=== PATIENT | female | born 1965 | race Caucasian/White ===

== ENCOUNTER → 2017-04-15 16:18 | Outpatient (CLI) | payer MEDICAID, SELFPAY ==
[2017-04-15 18:08] LABS: Amylase 38 U/L (25-115); Lipase 271 U/L (73-393)
[2017-04-15 18:09] LABS: Absolute Neutrophil Count 3.9 X10^3/uL (2.0-7.7); Basophil# 0.03 X10^3/uL; Basophil% 0.4 % (0-1); Eosinophil# 0.07 X10^3/uL; Hematocrit 40.1 % (37-47); Hemoglobin 13.1 g/dl (12.0-15.0); Lymphocyte % 32.6 % (19-41); Mean Corp Hgb Conc 32.7 g/gl (32-36); Mean Corpuscular Hgb 29.2 pg (27.0-32.0); Mean Corpuscular Volume 89.3 fL (81-99); Mean Platelet Vol. 8.8 fl (6.2-12.0); Monocyte# 0.52 X10^3/uL; Monocyte% 7.7 % (0-10); Neutrophil # 3.92 X10^3/uL (2.7-7.7); Neutrophil % 58.2 % (47-70); Platelet Count 296 K/mm3 (150-450); RBC Distribution Width CV 14.3 % (11.6-14.6); RBC Distribution Width SD 46.9 fl (35.1-43.9); Red Blood Count 4.49 M/mm3 (4.2-5.4); White Blood Count 6.8 K/mm3 (4.4-11.0)
[2017-04-15 18:14] LABS: POSITIVE COUNT NO; POSITIVE DIFFERENTIAL NO; POSITIVE MORPHOLOGY NO
== END ==
PROVIDERS: Family Provider Family Medicine; PCP Family Medicine; Visit Provider Family Medicine
DX: K29.00 Acute gastritis without bleeding (principal)
CPT/HCPCS: 36415; 82150; 83690; 85025

== ENCOUNTER 2017-04-26 18:24 | Emergency (ER) | payer MEDICAID, SELFPAY ==
[2017-04-26 18:25] VITALS: BP 196/99; PULSE 74; RESP 18; TEMP 36.4; O2SAT 98; BMI 33.5
--- NOTE | 2017-04-26 18:33 | CT_ITS ---
STUDY: CT ABDOMEN AND PELVIS WITH CONTRAST REASON FOR EXAM: Female, 52 years old. Left-sided abdominal pain. RADIATION DOSAGE (If Supplied By Facility): CTDIvol = ( 17.96 ) mGy, DLP = ( 1173.76 ) mGycm TECHNIQUE: Transaxial images were obtained from the dome of the diaphragm to the symphysis pubis without oral contrast. 100ML ml of Isovue 300 contrast was administered. Sagittal and coronal images were reconstructed. Individualized dose optimization techniques were used for this CT. COMPARISON: None. FINDINGS: There is minimal bibasilar atelectasis. The visualized portions of the heart are within normal limits. There is a too small to characterize low-attenuation focus within the left hepatic lobe that may reflect underlying cyst or hemangioma. There are surgical clips in the gallbladder fossa consistent with a prior cholecystectomy. Normal spleen. Normal pancreas. Normal bilateral adrenal glands. Normal right kidney. Normal left kidney. Normal visualized stomach. Normal small intestine. There is a moderate amount of stool throughout the colon. There is non-visualization of the appendix. There is minimal atherosclerotic calcification of the abdominal aorta, without a demonstrated aneurysm. Normal inferior vena cava. Normal retroperitoneum. Normal urinary bladder. There is evidence of prior tubal ligation. Within the right adnexa there is a 2 cm well-circumscribed low-attenuation focus that likely reflects underlying cyst. There is a small umbilical hernia containing fat. There are diffuse degenerative changes of the visualized lumbar spine. CT/Abdomen/Pelvis W IV Cont ONLY IMPRESSION: Moderate amount of stool throughout the colon. Small fat-containing umbilical hernia. Atherosclerosis. Electronically Signed: Zahra Vasquez MD at 20:35 EST Tel , Service support ,
--- NOTE | 2017-04-26 18:51 | ED.VISSUMM ---
- ER Visit Summary Date of Service: 04/26/17 Chief Complaint: Abdominal pain History of Present Illness: The patient is a 52 F history of hypertension and hypothyroidism presents to the emergency department abdominal pain. The patient states that she was admitted to the hospital just over 2 years ago. At that time, she had a left-sided pneumonia with a pleural effusion. She states that she had effusion tapped and did fine as an outpatient. However, since then she has had some pain in her upper left abdomen. She states it wax and wane. She states however over the past 3 days the pain is worsened. She describes a sharp sensation in her upper abdomen. 2 weeks ago, she was started on omeprazole and feels like that may be helping some of the symptoms. She denies any diarrhea. She denies any constipation. She has had no fevers or chills. She denies any vomiting. She states that she called her primary care, Dr. Mckeon, but cannot be seen in the office and was sent in for further evaluation. Physical Examination: Vital signs reviewed General: Well-nourished, well-developed Head: Normocephalic, atraumatic Eyes: Pupils equal and reactive, extraocular muscles intact Neck, supple, no lymphadenopathy Heart: Regular rate and rhythm Respiratory: No distress, clear bilaterally Abdomen: Soft, normal tenderness in the left upper quadrant along the splenic flexure, nondistended, no peritoneal signs Back: Nontender Extremities: Nontender, no edema, no cords Skin: Normal color no rash Neuro: Alert and oriented, no focal or lateralizing deficits Test Results: [] Emergency Department Course and Treatment: She does have some minimal tenderness in the left upper quadrant. Her symptoms have actually improved with some omeprazole over the past 2 weeks. It does not seem to be related to eating. I did obtain screening labs which were relatively unremarkable for the patient. There is no evidence of acute liver dysfunction, pancreatitis, or acute kidney injury. Patient underwent CT of the abdomen and pelvis. There is some small cysts within the liver that appears to be hemangioma. There is no documented dangerous process within the abdomen. She does have a moderate amount of stool. I do feel this may be contributing to her symptoms. At this time, I am unsure if this is because of constipation, underlying gastritis, or another process. However, the patient has a repeat nontender exam without analgesic medication, normal laboratory workup, and an unremarkable CT. At this time, I do feel that she is safe for discharge with outpatient therapy. She will be given magnesium citrate, Colace, and Bentyl. She was counseled on concerning symptoms and reasons to return. The patient will be discharged home. Treatment Plan: [] Disposition: Discharge Impression:. Left upper quadrant abdominal pain 2. Constipation This note was generated with [employer] dictation software. It may contain incorrect words, spelling, and punctuation that were not noted in review of the chart prior to signing ED Disposition - Plan for ED Patient: Chief Complaint: Abd Pain Instructions: ED Abdominal Pain Unkn Cause Prescriptions: Dicyclomine HCl [Bentyl] 20 mg PO TIDAC #20 cap Docusate Sodium [Colace] 100 mg PO DAILY #20 cap Referrals: Conor Mckeon MD [Primary Care Provider] -
[2017-04-26] MEDS: 0.9% Normal Saline 1,000 ML 1000 ML IV (19:04)
[2017-04-26 19:19] LABS: Absolute Lymphocyte Count 2.19 X10^3/ul (0.83-4.51); Absolute Neutrophil Count 4.2 X10^3/uL (2.0-7.7); Basophil# 0.04 X10^3/uL; Basophil% 0.5 % (0-1); Eosinophils% 2.7 % (0-5); Hematocrit 39.1 % (37-47); Hemoglobin 12.9 g/dl (12.0-15.0); Lymphocyte # 2.19 X10^3/ul (4.0); Lymphocyte % 29.1 % (19-41); Mean Corpuscular Hgb 29.8 pg (27.0-32.0); Mean Corpuscular Volume 90.3 fL (81-99); Mean Platelet Vol. 8.5 fl (6.2-12.0); Monocyte# 0.84 X10^3/uL; Monocyte% 11.2 % (0-10); Neutrophil # 4.23 X10^3/uL (2.7-7.7); Neutrophil % 56.1 % (47-70); Platelet Count 273 K/mm3 (150-450); RBC Distribution Width CV 14.6 % (11.6-14.6); RBC Distribution Width SD 47.7 fl (35.1-43.9); Red Blood Count 4.33 M/mm3 (4.2-5.4); White Blood Count 7.5 K/mm3 (4.4-11.0)
[2017-04-26 19:20] LABS: POSITIVE COUNT NO; POSITIVE DIFFERENTIAL NO; POSITIVE MORPHOLOGY NO
[2017-04-26 19:52] LABS: ALB/GLOB Ratio 1.1 RATIO (0.9-2.4); AST(SGOT) 18 U/L (15-37); Alanine Aminotransfer ALT/SGPT 29 U/L (13-56); Albumin, Serum 3.7 g/dL (3.2-5.0); Alkaline Phosphatase 104 U/L (45-117); Anion Gap 8 (5-15); BUN 17 mg/dL (7-18); BUN/Creat Ratio 16.7 RATIO (10-20); Calcium,Total 8.4 mg/dL (8.5-10.1); Chloride 105 mmol/L (98-107); Creatinine, Serum 1.02 mg/dL (0.55-1.02); EST Glomerular Filtration Rate 60 mL/min (>60); Est Glom Filt Rate - Afr Amer 73 mL/min (>60); Estimated Creatinine Clearance 59.03 ml/min; Globulin 3.5 g/dL (2.2-4.2); Glucose 86 mg/dL (74-106); Lipase 196 U/L (73-393); Potassium 3.7 mmol/L (3.5-5.1); Protein, Total 7.2 g/dL (6.4-8.2); Sodium Level 139 mmol/L (136-145)
[2017-04-26 21:33] VITALS: BP 142/75; PULSE 51; RESP 16; O2SAT 98
[2017-04-26] MEDS: Magnesium Citrate 300 ML PO (21:33)
== END 2017-04-26 21:35 | disposition home or self-care (01) ==
LOC: ED 19:22
PROVIDERS: Emergency Provider Emergency Medicine; Family Provider Family Medicine; PCP Family Medicine
DX: R10.12 Left upper quadrant pain (principal); K59.00 Constipation, unspecified; K76.89 Other specified diseases of liver; E66.9 Obesity, unspecified; Z87.19 Personal history of other diseases of the digestive system; I10 Essential (primary) hypertension; E03.9 Hypothyroidism, unspecified; Z87.01 Personal history of pneumonia (recurrent); Z90.49 Acquired absence of other specified parts of digestive tract; Z79.899 Other long term (current) drug therapy
CPT/HCPCS: 74177; 80053; 83690; 85025; 96360; 99285; Q9967; A4216

== ENCOUNTER 2017-07-05 06:56 | Day surgery (SDC) | payer MEDICAID, SELFPAY ==
[2017-07-05] VITALS (7 sets, daily range): BP systolic 102–135; BP diastolic 57–73; PULSE 55–70; RESP 15–16; TEMP 36.3–36.8; O2SAT 96–97; BMI 34.9
--- NOTE | 2017-07-05 | IMM_PTH ---
PATIENT: CHAD PANTOJA LOC: [facility] U#:[id number] AGE/SX: 52/F ROOM: RE07/05/[address]: Dr. Tho Garcia MD : 1965 BED: DIS: 07/05/2017 SPEC #: [id number] RECD: 07/08/17 12:03 STATUS: [place] #: [id number] KHADRA: 07/05/17 00:[address]: Tho Garcia DEPT: IMMUNOHISTOCHEMISTRY RECD BY: Christina Diop ENTERED: 07/08/17 12:04 SP TYPE: IMMUNO OTHR DR: Dr. Conor Mckeon MD Tissues: B - Stomach, NOS Procedures: H Pylori (initial) PHYSICIAN & INSTITUTION [place] [id number] SPECIMEN INFORMATION: Tissue Source: B ? Antral biopsy Clinical Info: Epigastric pain, constipation Specimen Number: [id number] CPT code: 17012 METHODOLOGY: Deparaffinized sections of prefer/formalin-fixed tissue or PAP/DQ stained slides are incubated with monoclonal/polyclonal antibodies/oligonucleotide probes. Localization is made via biotin free immunoperoxidase method. Appropriate controls are performed and reacted as expected. Results on target cell population are indicated in the following table: RESULTS: ANTIBODY / CLONE RESULT Block B H Pylori (polyclonal) negative These tests were developed and their performance characteristics determined by [facility]. They may not have been cleared or approved by the U.S. Food and Drug Administration. The FDA has determined that such clearance or approval is not necessary. INTERPRETATION: B. Antral biopsy: Negative for Helicobacter pylori organisms. SJ:ra 07/09/17
--- NOTE | 2017-07-05 | EGD_PTH ---
PATIENT: CHAD PANTOJA LOC: EN U#:[id number] AGE/SX: 52/F ROOM: RE07/05/[address]: Dr. Tho Garcia MD : 1965 BED: DIS: 07/05/2017 SPEC #: [id number] RECD: 07/05/17 14:48 STATUS: GLADYS [place] #: [id number] KHADRA: 07/05/17 00:[address]: Tho Garcia DEPT: SURGICAL PATHOLOGY RECD BY: Sanya Powell ENTERED: 07/05/17 14:49 SP TYPE: EGD BIOPSY LAUREN DR: Dr. Conor Mckeon MD Tissues: A - Duodenum, NOS B - Gastric mucous membrane C - Esophageal mucous membrane D - Esophageal mucous membrane E - COLON BIOPSY Procedures: Surgery Specimen Level IV HEADER OPERATION: EGD, colonoscopy PRE-OP DIAGNOSIS: Epigastric pain, constipation TISSUE SUBMITTED: A ? Duodenal biopsy, B ? Antral biopsy for histo and H. pylori, C ? Distal esophagus biopsy, D ? Mid esophagus biopsy, E ? Random colon biopsy MICROSCOPIC DIAGNOSIS A. Duodenal biopsy: Fragments of duodenal mucosa with Janki gland hyperplasia. B. Antral biopsy: Mild gastritis. C. Distal esophagus, biopsy: Fragments of gastroesophageal mucosa with chronic inflammation. Intestinal metaplasia (goblet cell metaplasia) is not identified. See comment. D. Mid esophagus, biopsy: Fragments of squamous epithelium with mild chronic inflammation. E. Colon, random biopsy: Fragments of colonic mucosa, no pathologic diagnosis. SJ:ra 07/08/17 COMMENT B. The results of immunohistochemistry for Helicobacter pylori will be reported separately ([id number]). C. Alcian blue/PAS stain with matched control is used in the evaluation of the specimen. MICROSCOPIC DESCRIPTION Slides are reviewed. B. The specimen shows fragments of gastric mucosa with chronic inflammatory cell infiltrates in the lamina propria consisting of lymphocytes and plasma cells, consistent with mild chronic gastritis. GROSS DESCRIPTION A - Received in fixative is one container labeled with the patient's name and designated duodenal biopsy. The specimen consists of one irregular fragment of light thorne soft tissue that measures 0.6 x 0.2 x 0.1 cm. The specimen is totally submitted in one cassette. B - Received in fixative is one container labeled with the patient's name and designated antral biopsy. The specimen consists of one irregular fragment of light thorne soft tissue that measures 0.5 x 0.3 x 0.1 cm. The specimen is totally submitted in one cassette. C - Received in fixative is one container labeled with the patient's name and designated distal esophagus. The specimen consists of two irregular fragments of light thorne soft tissue that in aggregate measure 0.5 x 0.5 x 0.1 cm. The specimen is totally submitted in one cassette. D - Received in fixative is one container labeled with the patient's name and designated mid esophagus. The specimen consists of multiple irregular fragments of light thorne soft tissue that in aggregate measure 0.5 x 0.3 x <0.1 cm. The specimen is totally submitted in one cassette. E - Received in fixative is one container labeled with the patient's name and designated random colon biopsy. The specimen consists of multiple irregular fragments of light thorne soft tissue that in aggregate measure 1.5 x 1 x 0.1 cm. The specimen is totally submitted in one cassette. / AM:ra 07/05/17 TC:3 CPT: 41627 x5, 99947
--- NOTE | 2017-07-05 09:16 | OP.PCM_ITS ---
Problem List (1) Epigastric pain Status: Acute Report of Operation Date of Procedure: 07/05/17 Pre-Operative Diagnosis: Epigastric pain Post-Operative Diagnosis: Mild distal esophagitis, mild antral gastritis with bile staining. Normal colonoscopy Surgery/Procedure Performed:: Esophagogastroduodenoscopy with duodenal and antral and distal esophageal and mid esophageal cold forcep biopsies. Colonoscopy with random cold forcep biopsies Description of Surgical Findings:: Timeout and informed consent was obtained. [id number] female was taken to the endoscopy suite. Her oropharynx anesthetized with Topex. She was placed in a left lateral decubitus position. Throughout both the upper and lower endoscopy she received a total of 150 g Demerol and 4.5 mg of Versed as intravenous sedation. Flexible gastroscope was inserted into the esophageal inlet. It was advanced without difficulty. The proximal mid and distal esophagus was inspected was not remarkable other than the e.g. junction was at 39 cm and there were slight changes consistent with mild reflux esophagitis. Photograph was obtained. The scope was advanced in the stomach there was some bile staining and some mild erythema of the antrum. The scope was advanced through the pylorus the first and second portions of the duodenum were inspected this did not appear to be remarkable. Duodenal bulb biopsy was obtained. The scope was withdrawn to the stomach retroflexed the EG junction inspected that appeared to be intact the cardia did not appear to be unremarkable the greater and lesser curvatures were carefully inspected. An antral biopsy was obtained. The erythema of the antrum was mild. There is no evidence of active bleeding. Excess fluid and air was aspirated free. The scope was withdrawn to the distal esophagus and at the area of the e.g. junction distal esophageal biopsies were obtained. Then the scope was withdrawn to the mid esophagus and mid esophageal biopsies were obtained. Hemostasis was intact the procedure was completed the patient tolerated it well. The patient was kept in a left lateral decubitus position. Digital rectal exam performed. Normal anal tone. Flexible colonoscope inserted in the rectum and advanced through a slightly tortuous sigmoid colon then the scope was readily advanced to the transverse colon the ascending colon was nicely achieved. The cecum ileocecal valve area was nicely achieved bowel prep was good. The scope was carefully withdrawn from the cecum ileocecal valve ascending colon transverse colon descending colon and sigmoid colon. No gross abnormalities were identified. Random colonic biopsies were obtained. The scope was retroflexed within the rectum. No significant hemorrhoidal changes noted. Excess fluid and air was aspirated free the procedure was completed with the patient tolerating it well. Impression Mild distal esophagitis. Mild antral gastritis with bile staining. Normal- appearing colonoscopy with random colonic biopsies pending Her most recent colonoscopy is remotely in childhood. Next screening colonoscopy in 10 years. The patient will be notified of pathology results as they become available. We will initiate sucralfate 1 g before meals and at bedtime in addition to her omeprazole therapy. The patient will be encouraged to drink more fluids to assist with more regular bowels. She will be encouraged to utilize a daily fiber supplementation and she may utilize MiraLAX as needed as well. Upper endoscopy medications were given at 0841. Scope inserted at 0844. The procedure was completed at 0851. The colonoscopy was initiated at 0851. The cecum was reached at 0858. The procedure was completed at 0907. Cc: Dr. MILENA Garcia M.D., F.A.C.S. Type of Anesthesia:: IV Sedation
== END 2017-07-05 10:45 | disposition home or self-care (01) ==
LOC: EN 06:56 → AC 06:58
PROVIDERS: Family Provider Family Medicine; PCP Family Medicine; Visit Provider Surgery
PROC: 0DJD8ZZ Inspection of Lower Intestinal Tract, Via Natural or Artificial Opening Endoscopic (ICD-10-PCS; CPT 45378; principal; 2017-07-05 07:55)
DX: K21.0 Gastro-esophageal reflux disease with esophagitis (principal); K29.70 Gastritis, unspecified, without bleeding; K31.89 Other diseases of stomach and duodenum; K59.00 Constipation, unspecified; E66.9 Obesity, unspecified; Z68.34 Body mass index [BMI] 34.0-34.9, adult; E03.9 Hypothyroidism, unspecified; I10 Essential (primary) hypertension; F32.9 Major depressive disorder, single episode, unspecified; F41.9 Anxiety disorder, unspecified; M19.90 Unspecified osteoarthritis, unspecified site; Z78.0 Asymptomatic menopausal state; Z87.01 Personal history of pneumonia (recurrent); Z90.49 Acquired absence of other specified parts of digestive tract; Z79.899 Other long term (current) drug therapy
CPT/HCPCS: 43239; 45380; 88305; 88342; 99152; 99153; J7120

== ENCOUNTER → 2017-07-19 10:39 | Outpatient (CLI) | payer MEDICAID, SELFPAY ==
--- NOTE | 2017-07-19 10:41 | BI_ITS ---
MAMMOGRAPHY - BILATERAL SCREENING REASON FOR EXAM: Female, 52 years old. Routine annual screening examination. PERTINENT HISTORY: Non-contributory. TECHNIQUE: Digital bilateral breast reza (3D mammographic acquisition) in the CC and MLO projections. 2-D mediolateral oblique (MLO) and craniocaudad (CC) views of both breasts were obtained. CAD: Full Field Digital Mammography with Computer Added Detection was performed. COMPARISON: Comparison made with prior arteriogram examination in July 13, 2009. FINDINGS: Breast Composition: The breasts are almost entirely fatty. There are no dominant masses or suspicious calcifications. No other significant abnormalities are identified. There has been no significant change since the prior study. BI/SCREENING MAMM (CAD), BILAT IMPRESSION: Stable bilateral screening mammogram. Yearly follow-up mammogram recommended. (A) ASSESSMENT CATEGORY: BIRADS Category 1: Negative. A letter regarding these results will be sent to the patient by the facility within 30 days. Approximately 10% of breast cancers are not detected by mammography. A normal mammogram should not delay biopsy of a clinically suspicious abnormality. [id number] Electronically Signed: Derek Grimm MD at 15:50 EDT Tel [phone], Service support ,
== END ==
PROVIDERS: Family Provider Family Medicine; PCP Family Medicine; Visit Provider Family Medicine
DX: Z12.31 Encounter for screening mammogram for malignant neoplasm of breast (principal)
CPT/HCPCS: 77063; 77067

== ENCOUNTER → 2017-07-24 10:20 | Outpatient (CLI) | payer MEDICAID, SELFPAY ==
--- NOTE | 2017-07-24 10:22 | RAD_ITS ---
STUDY: X-RAY - LEFT KNEE REASON FOR EXAM: Female, 52 years old. Knee pain TECHNIQUE: 4 view(s) of the knee. COMPARISON: Right knee films, 10/18/2016 FINDINGS: Normal visualized distal femur. Normal visualized proximal tibia and fibula. Normal proximal tibiofibular articulation. There is no demonstrated fracture. There is moderate degenerative arthrosis of the medial femorotibial compartment with moderate joint space narrowing. Normal lateral femorotibial compartment. There is mild degenerative arthrosis of the patellofemoral articulation. There is a soft tissue prominence in the suprapatellar region suggesting a small volume joint effusion. The soft tissue structures are unremarkable. RAD/Knee 4 or More Views IMPRESSION: Degenerative changes, as described above. Electronically Signed: Venkata Phillips DO at 8:09 EDT Tel , Service support ,
== END ==
PROVIDERS: Family Provider Family Medicine; PCP Family Medicine; Visit Provider Orthopaedic Surgery
DX: M25.562 Pain in left knee (principal)
CPT/HCPCS: 73564

== ENCOUNTER → 2017-09-25 12:14 | Outpatient (CLI) | payer MEDICAID, SELFPAY ==
--- NOTE | 2017-09-25 08:00 | MRI_ITS ---
STUDY: MRI RIGHT KNEE REASON FOR EXAM: Female, 52 years old. Medial knee pain x2 years TECHNIQUE: Standardized fat and water weighted pulse sequences were obtained in all 3 orthogonal planes. COMPARISON: X-ray October 18, 2016 FINDINGS: There is attrition of the free edge of the medial meniscus without a demonstrated meniscal tear. There is partial extrusion of the anterior horn. There is diffuse, full thickness articular cartilage loss of the medial femorotibial compartment. There is mild osteoarthritic spur formation of the medial knee compartment. There is reactive marrow edema of the medial femoral condyle and tibial plateau. Normal medial collateral ligamentous complex (MCL). Normal distal semimembranosus, gracilis and semitendinosus tendons. Normal lateral meniscus. Normal hyaline cartilage of the lateral femorotibial compartment. There is mild osteoarthritic spur formation of the lateral knee compartment. Normal proximal tibiofibular articulation. Normal lateral collateral (fibular) ligament. Normal popliteus tendon. Normal biceps femoris tendon. Normal anterior cruciate ligament (ACL). Normal posterior cruciate ligament (PCL). There is arthrosis of the patellofemoral articulation. There is diffuse, less than 50% thickness articular cartilage loss of the patellofemoral compartment. Normal medial and lateral patellar retinaculum. Normal quadriceps tendon. Normal patellar tendon. Normal Hoffa's fat pad. There is a moderate volume joint effusion. There is a Bustillo's cyst. The soft tissues are unremarkable. The otherwise visualized osseous structures are unremarkable. MRI/Lower Ext Joint Only (Routine) IMPRESSION: Tricompartmental degenerative change. There is attrition of the medial meniscus. Joint effusion and popliteal cyst. Electronically Signed: Benja Yeh MD at 20:18 EDT , Service support ,
--- NOTE | 2017-09-25 12:24 | RAD_ITS ---
STUDY: X-RAY - ORBITS REASON FOR EXAM: Female, 52 years old. This study is being performed as a clearance examination for exclusion of orbital metal, prior to the performance of an MRI examination. TECHNIQUE: 2 view(s) of the orbits were obtained. COMPARISON: None. FINDINGS: Normal bilateral orbits without a metallic orbital foreign body. Normal visualized facial bones. Normal paranasal sinuses. The soft tissue structures are unremarkable. RAD/Orbits for Foreign Body IMPRESSION: No demonstrated metallic orbital foreign body. The patient is cleared for an MRI examination. Electronically Signed: Derek Grimm MD at 12:37 EDT Tel [phone], Service support ,
== END ==
PROVIDERS: Family Provider Family Medicine; PCP Family Medicine; Visit Provider Orthopaedic Surgery
DX: Z01.818 Encounter for other preprocedural examination (principal); M23.91 Unspecified internal derangement of right knee
CPT/HCPCS: 70030; 73721

== ENCOUNTER → 2018-04-10 10:14 | Outpatient (CLI) | payer MEDICAID, SELFPAY ==
[2017-07-05 07:42] VITALS: BMI 34.9
[2018-04-10 12:52] LABS: Vitamin D,25 Hydroxy 24.8 ng/mL (29.95-100.01)
[2018-04-10 13:06] LABS: Anion Gap 9 (5-15); BUN 7 mg/dL (7-18); BUN/Creat Ratio 7.6 RATIO (10-20); Calcium,Total 8.9 mg/dL (8.5-10.1); Chloride 110 mmol/L (98-107); Creatinine, Serum 0.92 mg/dL (0.55-1.02); EST Glomerular Filtration Rate 68 mL/min (>60); Est Glom Filt Rate - Afr Amer 82 mL/min (>60); Glucose 93 mg/dL (74-106); Potassium 4.2 mmol/L (3.5-5.1); Sodium Level 145 mmol/L (136-145); Thyroid Stim Hormone (TSH) 0.16 uIU/mL (0.358-3.74)
== END ==
PROVIDERS: Family Provider Family Medicine; PCP Family Medicine; Visit Provider Family Medicine
DX: I10 Essential (primary) hypertension (principal); E03.9 Hypothyroidism, unspecified; E55.9 Vitamin D deficiency, unspecified
CPT/HCPCS: 36415; 80048; 82306; 84443

== ENCOUNTER → 2018-04-24 11:34 | Outpatient (CLI) | payer MEDICAID, SELFPAY ==
[2017-07-05 07:42] VITALS: BMI 34.9
--- NOTE | 2018-04-24 11:38 | RAD_ITS ---
STUDY: X-RAY CHEST REASON FOR EXAM: Female, 53 years old. Acute bronchitis TECHNIQUE: PA and lateral chest COMPARISON: 02/28/2017. CT abdomen and pelvis 04/26/2017. Chest x-ray 02/28/2017 and 02/01/2016. FINDINGS: The lungs are acutely clear, symmetrically and normally expanded. No evidence of pneumonia. Minimal chronic interstitial changes of the left lung base, consistent with interstitial scar. An oval opacity at the left cardiophrenic angle adjacent to the right heart border has been present since prior imaging over multiple years, consistent with a normal pericardial fat pad as seen on CT scan. Normal cardiomediastinal silhouette, ramila and pleural margins. No acute osseous or upper abdominal process. RAD/Chest PA and Lateral IMPRESSION: No acute cardiopulmonary process. Electronically Signed: Rudy Cordoba MD at 18:07 EST Tel , Service support ,
== END ==
PROVIDERS: Family Provider Family Medicine; PCP Family Medicine; Referring Provider Family Medicine; Visit Provider Family Medicine
DX: J20.9 Acute bronchitis, unspecified (principal)
CPT/HCPCS: 71046

== ENCOUNTER → 2018-09-04 | Outpatient (CLI) | payer MEDICAID, SELFPAY ==
[2017-07-05 07:42] VITALS: BMI 34.9
[2018-09-04 14:38] LABS: Vitamin D,25 Hydroxy 22.6 ng/mL (29.95-100.01)
[2018-09-04 14:42] LABS: T4 Free Direct 0.95 ng/dL (0.76-1.46)
== END | disposition home or self-care (01) ==
LOC: MFPLAB 11:47
PROVIDERS: Family Provider Family Medicine; PCP Family Medicine; Visit Provider Family Medicine
DX: E03.9 Hypothyroidism, unspecified (principal)
CPT/HCPCS: 36415; 82306; 84439; 84443

== ENCOUNTER → 2019-02-19 | Outpatient (CLI) | payer MEDICAID, SELFPAY ==
[2017-07-05 07:42] VITALS: BMI 34.9
[2019-02-19 14:16] LABS: Vitamin D,25 Hydroxy 16.4 ng/mL (29.95-100.01)
[2019-02-19 14:19] LABS: Anion Gap 6 (5-15); BUN 11 mg/dL (7-18); BUN/Creat Ratio 11.9 RATIO (10-20); Calcium,Total 8.8 mg/dL (8.5-10.1); Chloride 109 mmol/L (98-107); Cholesterol 215 mg/dL (200); Creatinine, Serum 0.92 mg/dL (0.55-1.02); EST Glomerular Filtration Rate 67 mL/min (>60); Est Glom Filt Rate - Afr Amer 81 mL/min (>60); Glucose 83 mg/dL (74-106); High Density Lipoprotein 55 mg/dL; Potassium 3.9 mmol/L (3.5-5.1); Sodium Level 141 mmol/L (136-145); Thyroid Stim Hormone (TSH) 5.87 uIU/mL (0.358-3.74); Triglycerides 167 mg/dL; Very Low Density Lipoprotein 33 mg/dL (5-40)
== END | disposition home or self-care (01) ==
LOC: MTLAB 12:38
PROVIDERS: Family Provider Family Medicine; PCP Family Medicine; Referring Provider Family Medicine; Visit Provider Family Medicine
DX: I10 Essential (primary) hypertension (principal); E55.9 Vitamin D deficiency, unspecified; E78.00 Pure hypercholesterolemia, unspecified; E03.9 Hypothyroidism, unspecified
CPT/HCPCS: 36415; 80048; 80061; 82306; 84443

== ENCOUNTER → 2019-05-21 10:57 | Outpatient (CLI) | payer MEDICAID, SELFPAY ==
[2017-07-05 07:42] VITALS: BMI 34.9
[2019-05-21 12:50] LABS: Vitamin D,25 Hydroxy 42.9 ng/mL
[2019-05-21 12:55] LABS: T4 Free Direct 1.86 ng/dL (0.76-1.46); Thyroid Stim Hormone (TSH) 0.16 uIU/mL (0.358-3.74)
== END ==
PROVIDERS: PCP Family Medicine; Visit Provider Family Medicine
DX: E03.9 Hypothyroidism, unspecified (principal); E55.9 Vitamin D deficiency, unspecified
CPT/HCPCS: 36415; 82306; 84439; 84443

== ENCOUNTER → 2019-06-17 09:25 | Outpatient (CLI) | payer MEDICAID, SELFPAY ==
[2017-07-05 07:42] VITALS: BMI 34.9
--- NOTE | 2019-06-17 09:27 | RAD_ITS ---
STUDY: X-RAY - RIGHT KNEE REASON FOR EXAM: Female, 54 years old. FALL, RT KNEE PAIN TECHNIQUE: 4 view(s) of the knee. COMPARISON: None. FINDINGS: Degenerative spurring along the medial femoral condyle. Normal visualized proximal tibia and fibula. Normal proximal tibiofibular articulation. There is moderate degenerative arthrosis of the medial femorotibial compartment with moderate joint space narrowing. Normal lateral femorotibial compartment. There is moderate degenerative arthrosis of the patellofemoral articulation. Small joint effusion. Anterior soft tissue swelling. RAD/Knee 4 or More Views IMPRESSION: Degenerative arthrosis. Small joint effusion with soft tissue swelling. Electronically Signed: Derek Grimm, at 13:23 EDT , Service support ,
== END ==
PROVIDERS: PCP Family Medicine; Referring Provider Orthopaedic Surgery; Visit Provider Orthopaedic Surgery
DX: M25.561 Pain in right knee (principal)
CPT/HCPCS: 73564

== ENCOUNTER → 2019-08-10 11:13 | Outpatient (CLI) | payer MEDICAID, SELFPAY ==
[2019-06-17 10:09] VITALS: BMI 34.9
[2019-08-10 13:01] LABS: Vitamin D,25 Hydroxy 58.7 ng/mL
[2019-08-10 13:11] LABS: Thyroid Stim Hormone (TSH) 0.02 uIU/mL (0.358-3.74)
== END ==
PROVIDERS: PCP Family Medicine; Visit Provider Family Medicine
DX: E55.9 Vitamin D deficiency, unspecified (principal); E03.9 Hypothyroidism, unspecified
CPT/HCPCS: 36415; 82306; 84439; 84443

== ENCOUNTER → 2019-08-20 10:29 | Outpatient (CLI) | payer MEDICAID, SELFPAY ==
[2019-06-17 10:09] VITALS: BMI 34.9
--- NOTE | 2019-08-20 10:31 | RAD_ITS ---
STUDY: X-RAY - LUMBAR SPINE REASON FOR EXAM: Female, 54 years old. groin pain TECHNIQUE: 5 view(s) of the lumbar spine were obtained. COMPARISON: None FINDINGS: There is straightening of the normal lumbar lordosis. There is no substantial scoliosis. There is a normal alignment of the vertebrae. There is multilevel endplate spondylosis of the lumbar vertebrae. Mild disc space narrowing throughout the lumbar spine There is no demonstrated fracture. There is atherosclerotic calcification of the abdominal aorta without a demonstrated aneurysm. RAD/L/S Spine Min 4 Views IMPRESSION: Mild degenerative changes of the spine, as detailed above. Electronically Signed: Guero Laugnas MD at 10:47 EDT , Service support ,
== END ==
PROVIDERS: PCP Family Medicine; Referring Provider Family Medicine; Visit Provider Family Medicine
DX: M54.9 Dorsalgia, unspecified (principal)
CPT/HCPCS: 72110

== ENCOUNTER → 2019-09-09 10:32 | Outpatient (CLI) | payer MEDICAID, SELFPAY ==
[2019-06-17 10:09] VITALS: BMI 34.9
[2019-09-09 13:11] LABS: Erythrocyte Sedimentation Rate 35 mm/hr (0-30)
[2019-09-09 13:42] LABS: Anion Gap 9 (5-15); BUN 7 mg/dL (7-18); BUN/Creat Ratio 9.9 RATIO (10-20); Calcium,Total 8.6 mg/dL (8.5-10.1); Chloride 110 mmol/L (98-107); Cholesterol 216 mg/dL (200); Creatinine, Serum 0.71 mg/dL (0.55-1.02); EST Glomerular Filtration Rate 91 mL/min (>60); Est Glom Filt Rate - Afr Amer 110 mL/min (>60); Glucose 86 mg/dL (74-106); High Density Lipoprotein 56 mg/dL; Sodium Level 142 mmol/L (136-145); Triglycerides 133 mg/dL; Very Low Density Lipoprotein 27 mg/dL (5-40)
[2019-09-09 13:44] LABS: T4 Free Direct 1.71 ng/dL (0.76-1.46); Thyroid Stim Hormone (TSH) 0.01 uIU/mL (0.358-3.74)
== END ==
PROVIDERS: PCP Family Medicine; Visit Provider Nurse Practitioner Adult Health
DX: Z13.1 Encounter for screening for diabetes mellitus (principal); M79.606 Pain in leg, unspecified; Z13.220 Encounter for screening for lipoid disorders; E03.9 Hypothyroidism, unspecified
CPT/HCPCS: 36415; 80048; 80061; 84439; 84443; 85652

== ENCOUNTER → 2019-12-23 17:28 | Outpatient (CLI) | payer MEDICAID, SELFPAY ==
[2019-06-17 10:09] VITALS: BMI 34.9
[2019-12-23 17:35] LABS: Bacteria 0 SEEN /hpf (None Seen); Mucous, Urine 0 SEEN /hpf (<or=2+); Red Blood Cells-Urine 0 SEEN /hpf (0-5)
[2019-12-23 17:49] LABS: Absolute Lymphocyte Count 1.43 X10^3/uL (0.83-4.51); Absolute Neutrophil Count 4.1 X10^3/uL (2.0-7.7); Basophil# 0.04 X10^3/uL; Basophil% 0.6 % (0-1); Eosinophil# 0.05 X10^3/uL; Eosinophils% 0.8 % (0-5); Hematocrit 35.4 % (37-47); Hemoglobin 11.8 g/dL (12.0-15.0); Lymphocyte # 1.43 X10^3/ul (4.0); Lymphocyte % 22.1 % (19-41); Mean Corp Hgb Conc 33.3 g/dL (32-36); Mean Corpuscular Hgb 29.1 pg (27.0-32.0); Mean Corpuscular Volume 87.4 fL (81-99); Mean Platelet Vol. 8.9 fl (6.2-12.0); Monocyte# 0.77 X10^3/uL; Monocyte% 11.9 % (0-10); NRBC Flagged by Analyzer 0 % (0-5); Neutrophil # 4.09 X10^3/uL (2.7-7.7); Neutrophil % 63.2 % (47-70); POSITIVE MORPHOLOGY YES; Platelet Count 273 K/mm3 (150-450); RBC Distribution Width CV 15.1 % (11.6-14.6); RBC Distribution Width SD 48.6 fl (35.1-43.9); Red Blood Count 4.05 M/mm3 (4.2-5.4); White Blood Count 6.5 K/mm3 (4.4-11.0)
[2019-12-23 17:50] LABS: Differential Indicated SCAN CRITERIA MET
--- NOTE | 2019-12-23 17:50 | RAD_ITS ---
HISTORY: Abdominal pain and constipation for 6 weeks EXAMINATION/TECHNIQUE: XR Abdomen W/ Decub and/or Erect Views: COMPARISON: None FINDINGS: Images obtained for dictation on this date LINES AND TUBES: None. BOWEL GAS PATTERN: There is a marked amount of fecal material is seen within the cecum and ascending colon. Gas-filled splenic flexure. Nondistended small bowel. Minimal air-fluid levels are seen within the left lower quadrant and pelvis FREE AIR: None visualized. ORGANOMEGALY: Not seen. CALCIFICATIONS: No abnormal calcifications observed. Cholecystectomy LOWER CHEST: No acute pathology. BONES AND SOFT TISSUES: No acute pathology. RAD/Abd Inc Decub and/or Erect IMPRESSION: Prominent amount of fecal material seen within the cecum and the ascending colon with gas filled splenic flexure and descending colon. Decreased visualization of the distal descending colon in sigmoid colon with minimal air-fluid levels. I would consider a CT of the abdomen and pelvis for further evaluation if clinically indicated at 0700 Reported and signed by: Paige Reyes DO Electronically Signed: Paige Reyes DO at 6:58 EDT Tel , Service support ,
[2019-12-23 18:34] LABS: Hypochromasia 1+; Platelet Estimate ADEQUATE (ADEQ)
[2019-12-23 19:01] LABS: Anion Gap 4 (5-15); BUN 11 mg/dL (7-18); BUN/Creat Ratio 12.3 RATIO (10-20); Calcium,Total 8.4 mg/dL (8.5-10.1); Chloride 106 mmol/L (98-107); Creatinine, Serum 0.89 mg/dL (0.55-1.02); EST Glomerular Filtration Rate 69 mL/min (>60); Est Glom Filt Rate - Afr Amer 84 mL/min (>60); Glucose 90 mg/dL (74-106); Potassium 3.2 mmol/L (3.5-5.1); Sodium Level 138 mmol/L (136-145)
[2019-12-23 19:03] LABS: Color, Urine Yellow (Yellow); Glucose, Dipstick Normal (Normal); Ketone-Dipstick Negative (Negative); Leukocyte Esterase-Dipstick 25 /ul (Negative); Nitrite-Dipstick Negative (Negative); Occult Blood-Urine Negative /ul (Negative); Protein-Dipstick 15 mg/dl (Negative); Urine Bilirubin Dipstick Negative (Negative); Urine Clarity Sl. Cloudy (Clear); Urine Urobilinogen 4 mg/dl (Normal); Urine pH 6.5 (5.0 - 8.0)
[2019-12-23 20:01] LABS: Squamous Epithelial Cells - UA 0-5 SEEN /hpf (5-10); White Blood Cells 0-5 SEEN /hpf (0-5); Yeast-Urine RARE /hpf (None Seen)
== END ==
PROVIDERS: PCP Family Medicine; Visit Provider Family Medicine
DX: R10.9 Unspecified abdominal pain (principal); E87.6 Hypokalemia; E03.9 Hypothyroidism, unspecified
CPT/HCPCS: 36415; 74019; 80048; 81001; 84439; 84443; 85025; 87086; 87088

== ENCOUNTER 2019-12-27 12:27 | Emergency (ER) | payer MEDICAID, SELFPAY ==
[2019-06-17 10:09] VITALS: BMI 34.9
[2019-12-27 12:28] VITALS: BP 142/91; PULSE 73; RESP 14; TEMP 36.8; O2SAT 98; BMI 34.7
--- NOTE | 2019-12-27 12:56 | CT_ITS ---
STUDY: CT ABDOMEN AND PELVIS WITH CONTRAST REASON FOR EXAM: Female, 54 years old. CHRONIC CONSTIPATION RADIATION DOSAGE (If Supplied By Facility): CTDIvol = ( 16.89 ) mGy, DLP = ( 1155.54 ) mGycm TECHNIQUE: Transaxial images were obtained from the dome of the diaphragm to the symphysis pubis with oral contrast. 100 mL ISOVUE-370 was administered. Sagittal and coronal images were reconstructed. Individualized dose optimization techniques were used for this CT. COMPARISON: 04/26/2017 FINDINGS: Mild atelectasis in the lung bases. The visualized portions of the heart are within normal limits. Normal liver. There are surgical clips in the gallbladder fossa consistent with a prior cholecystectomy. Normal spleen. Normal pancreas. Normal bilateral adrenal glands. Normal right kidney. Normal left kidney. Normal visualized stomach. No dilated loops of small bowel. Moderately wall thickening of the distal transverse and descending colon with pericolonic stranding. There is air distention of the more proximal right and transverse colon measuring up to 5.7 cm in diameter. No focal fluid collection. There is fecal residue of the sigmoid colon. The appendix is visualized and appears normal. Normal abdominal aorta. Normal inferior vena cava. Normal retroperitoneum. Normal urinary bladder. There is atrophy of the uterus. Normal abdominal wall. Degenerative disc disease at L5-S1. There are degenerative changes of the bilateral hips. CT/Abdomen/Pelvis WITH Contrast IMPRESSION: 1. Moderate length wall thickening of the distal transverse and descending colon with pericolonic stranding suggesting colitis, most typically infectious, inflammatory less likely ischemic causes. Moderate air distention of the more proximal colon. Fecal residue in the sigmoid colon. Electronically Signed: Markie Mclaughlin MD (Brooks) at 15:20 EST , Service support ,
--- NOTE | 2019-12-27 12:56 | ED.DCSUM_ITS ---
History of Present Illness Chief Complaint: Constipation Narrative: Patient is a 54-year-old female who presents with constipation. She states she is had constipation for at least a month. She reports that she is only had one formed stool. She was seen in an outside hospital about a week ago. At that time she was having abdominal pain nausea and vomiting. She was admitted overnight. She reports that she was having some liquid stool at that time. Since then she has been in contact with her primary care physician who advised her to use magnesium citrate MiraLAX which she states is not helping. She complains of some mid upper abdominal pain as well as distention. She has a prior history of cholecystectomy no other abdominal surgeries. No fevers. No vomiting. Past Medical History - Allergies and Home Meds Allergies/Adverse Reactions: Allergies No Known Allergies Allergy (Verified 12/27/19 12:28) Primary Care Physician: Amadou Gonzáles MD [Primary Care Provider] - Past Medical History: - - Hypothyroidism, anxiety Surgical History: cholecystectomy, tonsillectomy, - - Smoking Status: Never smoker Review of Systems All systems negative except as indicated General: Denies: Fever Eyes: Denies: Visual changes - bilaterally ENT: Denies: Bilateral ear pain Cardiovascular: Denies: Chest pain Respiratory: Denies: Dyspnea Gastrointestinal: Reports: Abdominal pain, Constipation. Denies: Nausea, Vomiting Musculoskeletal: Denies: Myalgias, Arthralgias Skin: Denies: Rash Neurological: Denies: Headache Physical Exam Vital Signs/Narrative: Vital Signs Temp Pulse Resp BP Pulse Ox 12/27/19 12:28 98.2 F 73 14 142/91 H 98 Inital Vital Signs reviewed: Yes General: Well nourished Head: Normocephalic Eyes: EOMI ENT: Moist mucous membranes Neck: Supple Cardiovascular: Regular rate, Regular rhythm Respiratory: No distress, CTA bilaterally Abdomen: Soft, - - Patient does have abdominal distention she has mild upper abdominal tenderness without guarding without rebound bowel sounds are diminished Skin: Normal color Neurological: Alert Psychological: Normal affect Diagnostic/Tx/Re-eval Impressions Abdomen/Pelvis CT 12/27/19 12:56 IMPRESSION: 1. Moderate length wall thickening of the distal transverse and descending colon with pericolonic stranding suggesting colitis, most typically infectious, inflammatory less likely ischemic causes. Moderate air distention of the more proximal colon. Fecal residue in the sigmoid colon. Electronically Signed: Markie Mclaughlin MD (Brooks) at 15:20 EST , Service support , 12/27/19 12:56 Abdomen/Pelvis WITH Contrast [CT] Stat Laboratory Results 12/27/19 12/27/19 13:15 13:15 WBC 4.3 L RBC 3.98 L Hgb 11.5 L Hct 35.8 L MCV 89.9 MCH 28.9 MCHC 32.1 RDW Std Deviation 52.7 H RDW Coeff of Lias 15.8 H Plt Count 370 MPV 9.0 Immature Gran % (Auto) 0.700 Neut % (Auto) 60.5 Lymph % (Auto) 27.6 Mcintosh % (Auto) 9.6 Eos % (Auto) 0.7 Baso % (Auto) 0.9 Absolute Neuts (auto) 2.6 Absolute Lymphs (auto) 1.18 Nucleated RBC % 0 Differential Comment SCANNED Sodium 137 Potassium 4.0 Chloride 104 Carbon Dioxide 28.0 Anion Gap 5 BUN 16 Creatinine 0.79 Estim Creat Clear Calc 65.78 Est GFR (MDRD) Af Amer 97 Est GFR (MDRD) Non-Af 80 BUN/Creatinine Ratio 20.3 H Glucose 105 Calcium 7.9 L Total Bilirubin 0.30 AST 20 ALT 17 Alkaline Phosphatase 113 Total Protein 6.5 Albumin 2.4 L Globulin 4.1 Albumin/Globulin Ratio 0.6 L Lipase 218 - Medical Decision Making Patient underwent the above diagnostic evaluation with laboratory studies and CT imaging. Her labs are essentially unremarkable. CT shows a moderate length of wall thickening and pericolonic stranding of the distal transverse and descending colon suggestive of colitis. Patient does report that she had low- grade fevers of about 100 for a few days last week. We will cover for potential infectious colitis with Cipro and Flagyl. She had a colonoscopy previously with Dr. Garcia. She was advised to follow-up with him for possible repeat colonoscopy. Patient does understand return for new or worsening symptoms and was instructed on specific signs and symptoms to monitor for that should prompt return here to the emergency department for reevaluation. All questions answered at bedside. Patient agreeable to this plan. Patient was discharged. ED Disposition - Plan for ED Patient: Disposition: Home or Assisted Living Diagnosis: Colitis Referrals: Amadou Gonzáles MD [Primary Care Provider] - Tho Garcia MD [STAFF PHYSICIAN] - Additional Instructions: Your CAT scan showed some inflammation of the colon. This can be due to many different causes. This may be related to infection so you were prescribed antib iotics. Take these as prescribed. Follow-up for further evaluation such as a possible colonoscopy.
[2019-12-27 13:30] LABS: Absolute Lymphocyte Count 1.18 X10^3/uL (0.83-4.51); Absolute Neutrophil Count 2.6 X10^3/uL (2.0-7.7); Basophil# 0.04 X10^3/uL; Basophil% 0.9 % (0-1); Eosinophil# 0.03 X10^3/uL; Eosinophils% 0.7 % (0-5); Hematocrit 35.8 % (37-47); Hemoglobin 11.5 g/dL (12.0-15.0); Lymphocyte # 1.18 X10^3/ul (4.0); Lymphocyte % 27.6 % (19-41); Mean Corp Hgb Conc 32.1 g/dL (32-36); Mean Corpuscular Hgb 28.9 pg (27.0-32.0); Mean Corpuscular Volume 89.9 fL (81-99); Monocyte# 0.41 X10^3/uL; Monocyte% 9.6 % (0-10); NRBC Flagged by Analyzer 0 % (0-5); Neutrophil # 2.58 X10^3/uL (2.7-7.7); Neutrophil % 60.5 % (47-70); POSITIVE MORPHOLOGY YES; Platelet Count 370 K/mm3 (150-450); RBC Distribution Width CV 15.8 % (11.6-14.6); RBC Distribution Width SD 52.7 fl (35.1-43.9); Red Blood Count 3.98 M/mm3 (4.2-5.4); White Blood Count 4.3 K/mm3 (4.4-11.0)
[2019-12-27 13:32] LABS: Differential Indicated SCAN CRITERIA MET
[2019-12-27 13:47] LABS: ALB/GLOB Ratio 0.6 RATIO (0.9-2.4); AST(SGOT) 20 U/L (15-37); Alanine Aminotransfer ALT/SGPT 17 U/L (13-56); Albumin, Serum 2.4 g/dL (3.2-5.0); Alkaline Phosphatase 113 U/L (45-117); Anion Gap 5 (5-15); BUN 16 mg/dL (7-18); BUN/Creat Ratio 20.3 RATIO (10-20); Calcium,Total 7.9 mg/dL (8.5-10.1); Chloride 104 mmol/L (98-107); Creatinine, Serum 0.79 mg/dL (0.55-1.02); EST Glomerular Filtration Rate 80 mL/min (>60); Est Glom Filt Rate - Afr Amer 97 mL/min (>60); Estimated Creatinine Clearance 65.78 ml/min; Globulin 4.1 g/dL (2.2-4.2); Glucose 105 mg/dL (74-106); Lipase 218 U/L (73-393); Protein, Total 6.5 g/dL (6.4-8.2); Sodium Level 137 mmol/L (136-145)
[2019-12-27 14:22] LABS: Differential Comment SCANNED
[2019-12-27 15:40] VITALS: BP 134/78; PULSE 66; RESP 17; O2SAT 97
== END 2019-12-27 15:44 | disposition home or self-care (01) ==
PROVIDERS: Emergency Provider Emergency Medicine; PCP Family Medicine
DX: K52.9 Noninfective gastroenteritis and colitis, unspecified (principal); E03.9 Hypothyroidism, unspecified; F41.9 Anxiety disorder, unspecified; Z90.49 Acquired absence of other specified parts of digestive tract; Z79.899 Other long term (current) drug therapy
CPT/HCPCS: 74177; 80053; 83690; 85025; 99283; Q9967

== ENCOUNTER → 2020-01-05 15:50 | Outpatient (CLI) | payer MEDICAID, SELFPAY ==
[2020-01-05 14:41] VITALS: BMI 33.0
[2020-01-05 16:24] LABS: Absolute Lymphocyte Count 1.97 X10^3/uL (0.83-4.51); Absolute Neutrophil Count 3.2 X10^3/uL (2.0-7.7); Basophil# 0.06 X10^3/uL; Eosinophil# 0.03 X10^3/uL; Eosinophils% 0.5 % (0-5); Hematocrit 35.4 % (37-47); Hemoglobin 11.4 g/dL (12.0-15.0); Lymphocyte # 1.97 X10^3/ul (4.0); Lymphocyte % 32.5 % (19-41); Mean Corp Hgb Conc 32.2 g/dL (32-36); Mean Corpuscular Hgb 29.1 pg (27.0-32.0); Mean Corpuscular Volume 90.3 fL (81-99); Mean Platelet Vol. 8.2 fl (6.2-12.0); Monocyte% 9.9 % (0-10); NRBC Flagged by Analyzer 0 % (0-5); Neutrophil # 3.15 X10^3/uL (2.7-7.7); Neutrophil % 51.8 % (47-70); Platelet Count 603 K/mm3 (150-450); RBC Distribution Width CV 15.6 % (11.6-14.6); RBC Distribution Width SD 51.6 fl (35.1-43.9); Red Blood Count 3.92 M/mm3 (4.2-5.4); White Blood Count 6.1 K/mm3 (4.4-11.0)
[2020-01-05 16:45] LABS: ALB/GLOB Ratio 0.6 RATIO (0.9-2.4); AST(SGOT) 16 U/L (15-37); Alanine Aminotransfer ALT/SGPT 19 U/L (13-56); Albumin, Serum 2.5 g/dL (3.2-5.0); Alkaline Phosphatase 104 U/L (45-117); Anion Gap 8 (5-15); BUN 16 mg/dL (7-18); BUN/Creat Ratio 13.8 RATIO (10-20); Calcium,Total 8.6 mg/dL (8.5-10.1); Chloride 105 mmol/L (98-107); Creatinine, Serum 1.16 mg/dL (0.55-1.02); EST Glomerular Filtration Rate 51 mL/min (>60); Est Glom Filt Rate - Afr Amer 62 mL/min (>60); Globulin 4.5 g/dL (2.2-4.2); Glucose 85 mg/dL (74-106); Lipase 394 U/L (73-393); Potassium 4.2 mmol/L (3.5-5.1); Sodium Level 138 mmol/L (136-145)
== END ==
PROVIDERS: PCP Family Medicine; Referring Provider Surgery; Visit Provider Surgery
DX: K59.00 Constipation, unspecified (principal); R10.13 Epigastric pain
CPT/HCPCS: 36415; 80053; 83690; 85025

== ENCOUNTER 2020-01-08 09:32 | Day surgery (SDC) | payer MEDICAID, SELFPAY ==
[2020-01-05 14:41] VITALS: BMI 33.0
[2020-01-08] VITALS (7 sets, daily range): BP systolic 98–147; BP diastolic 58–76; PULSE 54–68; RESP 16–17; TEMP 36.2–37.1; O2SAT 97–100; BMI 32.5
[2020-01-08] MEDS: Lactated Ringers 1,000 ML 100 ML IV (10:34)
--- NOTE | 2020-01-08 10:41 | PCM.HP.BLA ---
Problem List (1) Constipation Status: Acute Qualifiers: (2) Colitis Status: Acute History and Physical Date of Admission: 01/08/20 Intake Visit Reasons: CSCOPE/ ER F/U 12/26 Chief Complaint: right knee Allergies latex Allergy (Mild, Verified 01/05/20 14:42) rash Medications Bupropion HCl [Wellbutrin Sr] 200 mg PO BID 03/04/13 [History Confirmed 01/05/20] Fluoxetine [Prozac] 60 mg PO DAILY 03/04/13 [History Confirmed 01/05/20] Levothyroxine [Synthroid] 175 mcg PO DAILY 03/04/13 [History Confirmed 01/05/20] Cholecalciferol (Vitamin D3) [Vitamin D3] 5,000 unit PO DAILY 04/26/17 [History Confirmed 01/05/20] glycopyrrolate 2 mg tablet 1 tab PO BID 06/17/19 [History Confirmed 01/05/20] mirabegron 50 mg tablet,extended release 24 hr 50 mg PO DAILY 06/17/19 [History Confirmed 01/05/20] sodium,potassium,mag sulfates 17.5 gram-3.13 gram-1.6 gram oral soln 180 ml PO DAILY 0 Days #354 ml 01/05/20 [Rx Confirmed 01/05/20] FOR[facility]LY [facility], [facility] Medical History (Updated 01/05/20 @ 15:[address] Tho Garcia MD) Colitis (Acute) Constipation (Acute) Epigastric pain (Acute) Hypokalemia (Acute) Pneumonia (Acute) Obesity (BMI 30.0-34.9) (Chronic) Hypothyroidism (Chronic) Hypertension (Chronic) Depression (Chronic) Anxiety (Chronic) Thyroid nodule (Acute) Surgical History (Updated 01/05/20 @ 14:49 by Jhoana Dickson) History of colonoscopy (Acute ~2014) S/P section (Acute) S/P laparoscopic cholecystectomy (Acute) S/P tonsillectomy (Acute) Family History (Updated 01/05/20 @ 14:41 by Jhoana Dickson) Father Heart disease Thyroid disorder Asthma Cancer renal Social History (Updated 01/05/20 @ 15:[address] Tho Garcia MD) Smoking Status: Never smoker HPI HPI HPI: CHAD PANTOJA, is a 54 F who presents to the office today for surgical consultation regarding abdominal pain and severe constipation and abnormal CT imaging. The patient states that she has had significant problems with moving her bowels. She states that from the end of October all the way to December 09 she barely had a bowel movement. She states she was hospitalized in [facility] from December 16- because of the abdominal pain. I do not have records from that hospitalization but she states she was simply diagnosed with severe constipation. She was placed on MiraLAX therapy with no benefit. She then presented Dr. Cody Gonzáles on December 22 where a supine film and upright film of the abdomen is thin. There is prominent amount of fecal material within the cecum and ascending colon with a gas-filled splenic flexure and descending colon. CT scan was recommended. On December 27, 2019 through the emergency room at the [facility] she had a CT scan done. Moderate length of wall thickening of the distal transverse and descending colon with pericolonic stranding suggesting colitis myself most likely infectious. Moderate air distention the more proximal colon. Her white blood cell count was 4.3 with a hemoglobin 11.5 hematocrit 35.8 platelet count 3 and 70,000 with a normal differential. BUN was 16 creatinine 0.79. Albumin low at 2.4. Lipase 218. Liver function tests were normal. She states that she was prescribed antibiotics at that ER visit but never took the antibiotics. She states now that since that time she has been having nightly fevers. She is somewhat vague about the degree of fever somewhere between 99 and 100. She states that she has now been having some pudding-like stools. She was on MiraLAX for a course of time but now she is not taking MiraLAX or any type of laxative. She denies current nausea Because of the abnormal abdomen stool characteristics constipation possible colitis the patient is referred by Dr. Cody Gonzáles for surgical consultation and a written copy of my surgical consult and recommendations will return to him [facility] Imaging Services [address] [place] [address] Abdomen/Pelvis WITH Contrast MR#: [id number]:[id number] Name: CHAD PANTOJA [facility] #:[id number] : 1965F 54 From: Markie Mclaughlin MD PCP:Dr. Amadou Gonzáles MD Status:REG ER Study:Abdomen/Pelvis WITH Contrast Date of Exam:12/27/19 Exam#[id number] Ordering Dr: Dedrick Aquino MD STUDY: CT ABDOMEN AND PELVIS WITH CONTRAST REASON FOR EXAM: Female, 54 years old. CHRONIC CONSTIPATION RADIATION DOSAGE (If Supplied By Facility): CTDIvol = ( 16.89 ) mGy, DLP = ( 1155.54 ) mGycm TECHNIQUE: Transaxial images were obtained from the dome of the diaphragm to the symphysis pubis with oral contrast. 100 mL ISOVUE-370 was administered. Sagittal and coronal images were reconstructed. Individualized dose optimization techniques were used for this CT. COMPARISON: 04/26/2017 FINDINGS: Mild atelectasis in the lung bases. The visualized portions of the heart are within normal limits. Normal liver. There are surgical clips in the gallbladder fossa consistent with a prior cholecystectomy. Normal spleen. Normal pancreas. Normal bilateral adrenal glands. Normal right kidney. Normal left kidney. Normal visualized stomach. No dilated loops of small bowel. Moderately wall thickening of the distal transverse and descending colon with pericolonic stranding. There is air distention of the more proximal right and transverse colon measuring up to 5.7 cm in diameter. No focal fluid collection. There is fecal residue of the sigmoid colon. The appendix is visualized and appears normal. Normal abdominal aorta. Normal inferior vena cava. Normal retroperitoneum. Normal urinary bladder. There is atrophy of the uterus. Normal abdominal wall. Degenerative disc disease at L5-S1. There are degenerative changes of the bilateral hips. CT/Abdomen/Pelvis WITH Contrast IMPRESSION: 1. Moderate length wall thickening of the distal transverse and descending colon with pericolonic stranding suggesting colitis, most typically infectious, inflammatory less likely ischemic causes. Moderate air distention of the more proximal colon. Fecal residue in the sigmoid colon. Electronically Signed: Markie Mclaughlin MD (Brooks) at 15:20 EST , Service support , HPI HPI HPI: CHAD PANTOJA, is a 54 F who presents to the office today for Exam Const General: cooperative, comfortable, no acute distress Nutritional Appearance: obese Orientation: alert, awake HENRI Head: normal to inspection Eyes General: appearance normal, both eyes and all related structures Neck Neck: normal visual inspection Resp Effort & Inspection: normal respiratory effort Auscultation: clear to auscultation bilaterally Cardio Rate: regular rate Rhythm: regular rhythm GI Other: Distended, infrequent bowel sounds, no focal mass, nontender, protuberant, tympanic Musc Cervical Spine: normal cervical lordosis Skin General: no rashes or lesions noted Neuro General: alert, awake Extrem General: no calf tenderness Psych Affect: normal affect Assessment & Plan Problems 1. Constipation, unspecified constipation type K59.00 2. Colitis K52.9 Plan 54-year-old female. Severe constipation. Abnormal CT imaging suggesting left-sided colitis. Patient report of low-grade fever. Normal white blood cell count. Grossly distended abdomen but nontender. Etiology to the retained colonic fecal material and diminished stool not clear. Patient was not compliant with taking oral antibiotics as prescribed via the ER for suspected colitis. I recommended the patient a colonoscopy with possible biopsy or polypectomy as indicated. I would like to expedite this for her. We will try to proceed with a 2-day bowel prep to try to ensure cleansing. I will utilize monitored anesthesia care. She is aware of the technique, benefit, risk, alternatives. I will anticipate biopsies of appropriate. She has had an opportunity to ask and have questions answered. We will schedule and expedite her care. I appreciate the opportunity of assisting with her surgical care. Copy: Dr. Cody Garcia M.D., F.A.C.S. Orders Orders: Colonoscopy Today K59.00 Dr. Tho Garcia MD Comprehensive Metabolic Profil Today K59.00, R10.13 Dr. Tho Garcia MD Lipase Today K59.00, R10.13 Dr. Tho Garcia MD CBC W/Diff, Automated Today R10.13 Dr. Tho Garcia MD Medications New: sodium,potassium,mag sulfates 17.5-3.13-1.6 gram (Suprep Bowel Prep Kit) drink entire amount PM before + AM of procedure, 10-12 hr apart 180 mL PO DAILY 2 doses 354 mL 0RF Winifred LAND PA-C Coding Level of Care Code 32949 Diagnoses Constipation, unspecified constipation type K59.00 ??Constipation type: unspecified constipation type Colitis K52.9 I have re-examined the patient. There are no clinical changes since date of exam. Procedure Criteria Procedure Type: Elective COVID Risk Discussion: The surgeon/proceduralist and patient have discussed in detail the risk of exposure to and/or potential harm posed by the COVID-19 virus with having a surgery/procedure at this time versus the risk of delaying the surgery/procedure. It is not possible to know either the risk of delaying the surgery or procedure or chance of getting an infection with perfect accuracy, but a joint decision was made between the patient and the surgeon/proceduralist to proceed at this time with the scheduled surgery/procedure as indicated on the consent form.
--- NOTE | 2020-01-08 10:45 | COLBX_PTH ---
PATIENT: CHAD PANTOJA LOC: EN U#:[id number] AGE/SX: 54/F ROOM: RE01/08/[address]: Dr. Tho Garcia MD : 1965 BED: DIS: 01/08/2020 SPEC #: [id number] RECD: 01/08/20 11:26 STATUS: GLADYS COLIN #: [id number] KHADRA: 01/08/20 10:[address]: Tho Garcia DEPT: SURGICAL PATHOLOGY RECD BY: Ortega Massey ENTERED: 01/08/20 12:16 SP TYPE: COLON BX LAUREN DR: Dr. Cody Gonzáles MD Tissues: A - Transverse colon B - Left colon Procedures: Surgery Specimen Level IV HEADER OPERATION: Colonoscopy (MAC) PRE-OP DIAGNOSIS: Constipation; colitis TISSUE SUBMITTED: A - Mid transverse colon biopsy, B - Left colon biopsy MICROSCOPIC DIAGNOSIS A. Mid transverse colon, biopsy: Ulceration with associated acute and chronic inflammation and granulation. Mild melanosis coli. B. Left colon, biopsy: No pathologic change. AM:ra 01/11/20 MICROSCOPIC DESCRIPTION Slides are reviewed. GROSS DESCRIPTION A - Received in fixative is one container labeled with the patient's name and designated mid transverse colon biopsy. The specimen consists of multiple irregular fragments of light thorne soft tissue that in aggregate measure 1.5 x 0.5 x 0.1 cm. The specimen is totally submitted in one cassette. B - Received in fixative is one container labeled with the patient's name and designated left colon biopsy. The specimen consists of multiple irregular fragments of light thorne soft tissue that in aggregate measure 0.7 x 0.3 x 0.1 cm. The specimen is totally submitted in one cassette. / SJ:ra 01/08/20 TC:2 CPT: 01318 x2
--- NOTE | 2020-01-08 11:25 | OP.COLON_ITS ---
Patient Name: Alia Palacios Procedure Date: 01/08/2020 10:47 AM Date of : 1965 Age: 54 Procedure: Colonoscopy Indications: Abnormal CT of the GI tract Providers: Tho Garcia MD Referring MD: Amadou Gonzáles Medicines: See the Anesthesia note for documentation of the administered medications Patient Profile: Last Colonoscopy: none. The patient's first colonoscopy is today. Complications: No immediate complications. Procedure: Pre-Anesthesia Assessment: - Prior to the procedure, a History and Physical was performed, and patient medications and allergies were reviewed. The patient's tolerance of previous anesthesia was also reviewed. The risks and benefits of the procedure and the sedation options and risks were discussed with the patient. All questions were answered, and informed consent was obtained. Prior Anticoagulants: The patient has taken no previous anticoagulant or antiplatelet agents. ASA Grade Assessment: III - A patient with severe systemic disease. After reviewing the risks and benefits, the patient was deemed in satisfactory condition to undergo the procedure. After I obtained informed consent, the scope was passed under direct vision. Throughout the procedure, the patient's blood pressure, pulse, and oxygen saturations were monitored continuously. The colonoscope was introduced through the anus and advanced to the transverse colon. The colonoscopy was performed with moderate difficulty due to bowel stenosis. The patient tolerated the procedure well. The quality of the bowel preparation was good. Scope In: 10:54:00 AM Scope Out: 11:08:23 AM Total Procedure Duration Time 0 hours 14 minutes 23 seconds Findings: Hemorrhoids were found on perianal exam. Inflammation characterized by altered vascularity, congestion (edema) and linear erosions was found in a continuous and circumferential pattern from the transverse colon to the hepatic flexure. The sigmoid colon and the descending colon were spared. This was severe. Biopsies were taken with a cold forceps for histology. The descending colon appeared normal. Biopsies were taken with a cold forceps for histology. Impression: - Hemorrhoids found on perianal exam. - Colitis. Inflammation was found from the transverse colon to the hepatic flexure. This was severe. Biopsied. - The descending colon is normal. Biopsies taken of the left colon Recommendation: - Discharge patient to home. - Miralax 1 capful (17 grams) in 8 ounces of water PO PRN. - Repeat colonoscopy in 3 months for surveillance. - Cipro (ciprofloxacin) 500 mg PO BID for 2 weeks. - Flagyl (metronidazole) 500 mg PO TID for 2 weeks. - Return to my office in 10 days. - Continue present medications. Procedure Code(s): --- Professional --- 25573, 52, Colonoscopy, flexible; with biopsy, single or multiple Diagnosis Code(s): --- Professional --- K64.9, Unspecified hemorrhoids K52.9, Noninfective gastroenteritis and colitis, unspecified R93.3, Abnormal findings on diagnostic imaging of other parts of digestive tract CPT copyright 2017 [employer] [place] [employer]. All rights reserved. The codes documented in this report are preliminary and upon renal medicine specialist review may be revised to meet current compliance requirements. Tho Garcia MD 01/08/2020 11:24:29 AM This report has been signed electronically. Number of Addenda: 0 Note Initiated On: 01/08/2020 10:47 AM
--- NOTE | 2020-01-08 11:25 | OP.CCLET_ITS ---
01/08/2020 Amadou Gonzáles [address] [place] [address] Re : Colonoscopy procedure for Alia Palacios Dear Dr. Gonzáles This procedure was performed on Wednesday, January 08, 2020. My impressions and recommendations are as follows: Impressions : - Hemorrhoids found on perianal exam. - Colitis. Inflammation was found from the transverse colon to the hepatic flexure. This was severe. Biopsied. - The descending colon is normal. Biopsies taken of the left colon Recommendations : - Discharge patient to home. - Miralax 1 capful (17 grams) in 8 ounces of water PO PRN. - Repeat colonoscopy in 3 months for surveillance. - Cipro (ciprofloxacin) 500 mg PO BID for 2 weeks. - Flagyl (metronidazole) 500 mg PO TID for 2 weeks. - Return to my office in 10 days. - Continue present medications. My findings are described in the full procedure note, which is enclosed. If I can be of further assistance, please feel free to contact me at Doctor phone number(s): Work: . Sincerely, Tho Garcia MD 01/08/2020 11:24:29 AM This report has been signed electronically.
== END 2020-01-08 13:06 | disposition home or self-care (01) ==
LOC: EN 09:32 → AC 09:47
PROVIDERS: PCP Family Medicine; Referring Provider Family Medicine; Visit Provider Surgery
PROC: 0DJD8ZZ Inspection of Lower Intestinal Tract, Via Natural or Artificial Opening Endoscopic (ICD-10-PCS; CPT 45378; principal; 2020-01-08 10:40)
DX: K63.89 Other specified diseases of intestine (principal); K52.9 Noninfective gastroenteritis and colitis, unspecified; K64.9 Unspecified hemorrhoids; Z11.59 Encounter for screening for other viral diseases; I10 Essential (primary) hypertension; E66.9 Obesity, unspecified; E03.9 Hypothyroidism, unspecified; F32.9 Major depressive disorder, single episode, unspecified; F41.9 Anxiety disorder, unspecified; Z78.0 Asymptomatic menopausal state; Z87.01 Personal history of pneumonia (recurrent); Z90.49 Acquired absence of other specified parts of digestive tract; Z79.899 Other long term (current) drug therapy
CPT/HCPCS: 45380; 87426; 88305; C9803; J7120; J2405

== ENCOUNTER → 2020-03-21 10:55 | Outpatient (CLI) | payer MEDICAID, SELFPAY ==
[2020-01-08 10:14] VITALS: BMI 32.5
== END ==
PROVIDERS: PCP Family Medicine; Visit Provider Family Medicine
DX: E03.9 Hypothyroidism, unspecified (principal)
CPT/HCPCS: 36415; 82306; 84439; 84443

== ENCOUNTER → 2020-06-20 10:45 | Outpatient (CLI) | payer MEDICAID, SELFPAY ==
[2020-01-08 10:14] VITALS: BMI 32.5
[2020-06-20 12:47] LABS: Vitamin D,25 Hydroxy 45.5 ng/mL
[2020-06-20 13:20] LABS: Anion Gap 6 (5-15); BUN 15 mg/dL (7-18); BUN/Creat Ratio 15.3 RATIO (10-20); Calcium,Total 8.9 mg/dL (8.5-10.1); Chloride 104 mmol/L (98-107); Creatinine, Serum 0.98 mg/dL (0.55-1.02); EST Glomerular Filtration Rate 62 mL/min (>60); Est Glom Filt Rate - Afr Amer 75 mL/min (>60); Glucose 82 mg/dL (74-106); Potassium 4.4 mmol/L (3.5-5.1); Sodium Level 137 mmol/L (136-145)
== END ==
PROVIDERS: PCP Family Medicine; Visit Provider Family Medicine
DX: E55.9 Vitamin D deficiency, unspecified (principal); E87.1 Hypo-osmolality and hyponatremia; E03.9 Hypothyroidism, unspecified
CPT/HCPCS: 36415; 80048; 82306; 84443

== ENCOUNTER → 2020-08-17 09:16 | Outpatient (CLI) | payer MEDICAID, SELFPAY ==
[2020-07-20 13:58] VITALS: BMI 32.5
--- NOTE | 2020-08-17 09:25 | VDLE_ITS ---
Reason For Study: Edema RIGHT LEFT GSV is normal. GSV is normal. CFV is compressible, spontaneous, phasic, CFV is compressible, spontaneous, phasic, competent and demonstrates normal competent, and demonstrates normal augmentation. augmentation. FV is compressible, spontaneous, phasic, FV is compressible, spontaneous, phasic, competent and demonstrates normal competent and demonstrates normal augmentation. augmentation. POP V is compressible, spontaneous, phasic, POP V is compressible, spontaneous, phasic, competent and demonstrates normal competent and demonstrates normal augmentation. augmentation. T/P Trunk is compressible. T/P Trunk is compressible. PTV is compressible. PTV is compressible. RT PerV is compressible. LT PerV is compressible. Procedure This is a venous duplex using B-mode, color flow and spectral Doppler. Exam performed in department. A preliminary report was called and/or faxed to [facility]. VL/Venous Duplex US - Julio Extrem Interpretation Summary Deep veins of the lower extremities are bilaterally patent and compressible seg mentally. There is no evidence of deep vein thrombosis on either side. Valvular competence appears in tact within the proximal deep venous systems bilaterally. The great saphenous veins appear bila terally patent and compressible segmentally. Ordering Physician: Conor Bañuelos Referring Physician: Cody Gonzáles MD Performed By: Sweetie Carr RVT and Student
== END ==
PROVIDERS: PCP Family Medicine; Referring Provider Family Medicine; Visit Provider Family Medicine
DX: R60.0 Localized edema (principal)
CPT/HCPCS: 93970

== ENCOUNTER → 2021-01-16 12:10 | Outpatient (CLI) | payer MEDICAID, SELFPAY ==
[2021-01-16 15:28] LABS: Vitamin D,25 Hydroxy 61.2 ng/mL
[2021-01-16 15:30] LABS: ALB/GLOB Ratio 0.7 RATIO (0.9-2.4); AST(SGOT) 15 U/L (15-37); Alanine Aminotransfer ALT/SGPT 17 U/L (13-56); Albumin, Serum 3.1 g/dL (3.2-5.0); Alkaline Phosphatase 85 U/L (45-117); Anion Gap 4 (5-15); BUN 11 mg/dL (7-18); Calcium,Total 8.6 mg/dL (8.5-10.1); Chloride 109 mmol/L (98-107); Cholesterol 221 mg/dL (200); Creatinine, Serum 0.85 mg/dL (0.55-1.02); EST Glomerular Filtration Rate 73 mL/min (>60); Est Glom Filt Rate - Afr Amer 89 mL/min (>60); Globulin 4.2 g/dL (2.2-4.2); Glucose 87 mg/dL (74-106); High Density Lipoprotein 53 mg/dL; Potassium 4.5 mmol/L (3.5-5.1); Protein, Total 7.3 g/dL (6.4-8.2); Sodium Level 140 mmol/L (136-145); T4 Free Direct 1.37 ng/dL (0.76-1.46); Thyroid Stim Hormone (TSH) 4.39 uIU/mL (0.358-3.74); Triglycerides 208 mg/dL; Very Low Density Lipoprotein 42 mg/dL (5-40)
== END ==
PROVIDERS: PCP Family Medicine; Visit Provider Family Medicine
DX: E03.9 Hypothyroidism, unspecified (principal); E55.9 Vitamin D deficiency, unspecified
CPT/HCPCS: 36415; 80053; 80061; 82306; 84439; 84443

== ENCOUNTER 2021-04-18 10:46 | Outpatient (CLI) | payer MEDICAID, SELFPAY ==
[2021-04-18 13:45] LABS: T4 Free Direct 0.96 ng/dL (0.76-1.46)
== END 2021-04-18 23:59 | disposition home or self-care (01) ==
LOC: MFPLAB 10:46
PROVIDERS: PCP Family Medicine; Referring Provider Family Medicine; Visit Provider Family Medicine
DX: E03.9 Hypothyroidism, unspecified (principal)
CPT/HCPCS: 36415; 84439; 84443

== ENCOUNTER 2021-04-19 13:58 | Outpatient (CLI) | payer MEDICAID, SELFPAY ==
[2021-04-19 15:36] LABS: Free T3 1.4 pg/mL (2.18-3.98); T4 Free Direct 1.03 ng/dL (0.76-1.46)
[2021-04-21 11:24] LABS: Thyroid Peroxidase AB 16 IU/mL (0-34)
== END 2021-04-19 23:59 | disposition home or self-care (01) ==
LOC: MFPLAB 13:59
PROVIDERS: PCP Family Medicine; Referring Provider Family Medicine; Visit Provider Family Medicine
DX: E03.9 Hypothyroidism, unspecified (principal)
CPT/HCPCS: 84439; 84443; 84481; 86376

== ENCOUNTER 2021-05-30 14:33 | Outpatient (CLI) | payer MEDICAID, SELFPAY ==
[2021-05-30 18:13] LABS: Anion Gap 6 (5-15); BUN 13 mg/dL (7-18); BUN/Creat Ratio 15.4 RATIO (10-20); Calcium,Total 8.8 mg/dL (8.5-10.1); Chloride 109 mmol/L (98-107); Creatinine, Serum 0.85 mg/dL (0.55-1.02); EST Glomerular Filtration Rate 73 mL/min (>60); Est Glom Filt Rate - Afr Amer 89 mL/min (>60); Glucose 89 mg/dL (74-106); Potassium 4.1 mmol/L (3.5-5.1); Sodium Level 140 mmol/L (136-145); Thyroid Stim Hormone (TSH) 0.46 uIU/mL (0.358-3.74)
== END 2021-05-30 23:59 | disposition home or self-care (01) ==
LOC: MFPLAB 14:34
PROVIDERS: PCP Family Medicine; Referring Provider Family Medicine; Visit Provider Family Medicine
DX: E03.9 Hypothyroidism, unspecified (principal); I10 Essential (primary) hypertension
CPT/HCPCS: 36415; 80048; 84443

== ENCOUNTER → 2021-12-21 | Outpatient (CLI) | payer MEDICAID, SELFPAY ==
--- NOTE | 2021-12-21 11:10 | RAD_ITS ---
EXAM: XR LUMBOSACRAL SPINE COMPLETE WITH FLEXION/EXTENSION, 6 OR MORE VIEWS CLINICAL INDICATION: pain TECHNIQUE: Lateral, frontal, oblique and lateral flexion/extension views of the lumbar spine and sacrum. This report was created using 3dplusme report [employer] technology. COMPARISON: None. FINDINGS: VERTEBRAE: There is slight increase in anterior listhesis of L4 on L5 on the flexion maneuver consistent with mild amount of instability. Otherwise, there is limited range of motion with flexion and extension. DISC SPACES: L5-S1 disc space narrowing. Facet arthropathy present at L3-4, L4-5 and L5-S1. GASTROINTESTINAL TRACT: Normal bowel gas pattern. RAD/L/S Spine w Bend Min 6 Vw IMPRESSION: Mild increase in L4-5 listhesis with flexion. Spondylosis as described. Electronically Signed: Franck Cantu MD at 13:36 EDT ,
== END | disposition home or self-care (01) ==
PROVIDERS: PCP Family Medicine; Referring Provider Nurse Practitioner Family; Visit Provider Nurse Practitioner Family
DX: M54.50 Low back pain, unspecified (principal)
CPT/HCPCS: 72114

== ENCOUNTER 2022-01-30 12:00 | Outpatient (CLI) | payer MEDICAID, SELFPAY ==
[2022-01-30 15:23] LABS: Vitamin D,25 Hydroxy 15.2 ng/mL
[2022-01-30 16:14] LABS: ALB/GLOB Ratio 1.1 RATIO (0.9-2.4); AST(SGOT) 33 U/L (15-37); Alanine Aminotransfer ALT/SGPT 27 U/L (13-56); Albumin, Serum 3.7 g/dL (3.2-5.0); Alkaline Phosphatase 66 U/L (45-117); Anion Gap 10 (5-15); BUN 14 mg/dL (7-18); BUN/Creat Ratio 12.6 RATIO (10-20); Calcium,Total 8.6 mg/dL (8.5-10.1); Chloride 103 mmol/L (98-107); Cholesterol 388 mg/dL (200); Creatinine, Serum 1.11 mg/dL (0.55-1.02); EST Glomerular Filtration Rate 54 mL/min (>60); Est Glom Filt Rate - Afr Amer 65 mL/min (>60); Globulin 3.3 g/dL (2.2-4.2); Glucose 85 mg/dL (74-106); High Density Lipoprotein 70 mg/dL; Sodium Level 138 mmol/L (136-145); T4 Free Direct 0.48 ng/dL (0.76-1.46); Triglycerides 265 mg/dL; Very Low Density Lipoprotein 53 mg/dL (5-40)
== END 2022-01-30 23:59 | disposition home or self-care (01) ==
LOC: MFPLAB 12:06
PROVIDERS: PCP Family Medicine; Referring Provider Family Medicine; Visit Provider Family Medicine
DX: E55.9 Vitamin D deficiency, unspecified (principal); I10 Essential (primary) hypertension; E03.9 Hypothyroidism, unspecified
CPT/HCPCS: 36415; 80053; 80061; 82306; 84439; 84443

== ENCOUNTER → 2022-03-06 | Outpatient (CLI) | payer MEDICAID, SELFPAY ==
[2022-03-06 13:30] LABS: Free T3 2.6 pg/mL (2.18-3.98); T4 Free Direct 1.63 ng/dL (0.76-1.46); Thyroid Stim Hormone (TSH) 6.61 uIU/mL (0.358-3.74)
== END | disposition home or self-care (01) ==
LOC: MFPLAB 10:46
PROVIDERS: PCP Family Medicine; Visit Provider Family Medicine
DX: E03.9 Hypothyroidism, unspecified (principal)
CPT/HCPCS: 36415; 84439; 84443; 84481

== ENCOUNTER → 2022-04-12 | Outpatient (CLI) | payer MEDICAID, SELFPAY ==
--- NOTE | 2022-04-12 10:34 | RAD_ITS ---
STUDY: X-RAY - RIGHT KNEE REASON FOR EXAM: Female, 57 years old. Osteoarthritis TECHNIQUE: 4 view(s) of the knee. COMPARISON: Comparison is made with prior study dated 07/20/2020. FINDINGS: Degenerative spur formation along the medial femoral condyle. Degenerative spur formation of the medial tibial plateau. Normal proximal tibiofibular articulation. There is moderate degenerative arthrosis of the medial femorotibial compartment with moderate joint space narrowing. Normal lateral femorotibial compartment. There is moderate degenerative arthrosis of the patellofemoral articulation. Tiny joint effusion. RAD/Knee 4 or More Views IMPRESSION: Degenerative arthrosis. Electronically Signed: Derek Grimm MD at 12:49 EST ,
== END | disposition home or self-care (01) ==
LOC: MTRAD 10:31
PROVIDERS: PCP Family Medicine; Referring Provider Family Medicine; Visit Provider Family Medicine
DX: M17.11 Unilateral primary osteoarthritis, right knee (principal)
CPT/HCPCS: 73564

== ENCOUNTER → 2022-04-24 | Outpatient (CLI) | payer MEDICAID, SELFPAY ==
[2022-04-24 13:06] LABS: Anion Gap 5 (5-15); BUN 19 mg/dL (7-18); BUN/Creat Ratio 23.1 RATIO (10-20); Calcium,Total 9.3 mg/dL (8.5-10.1); Chloride 106 mmol/L (98-107); Creatinine, Serum 0.82 mg/dL (0.55-1.02); EST Glomerular Filtration Rate 75 mL/min (>60); Est Glom Filt Rate - Afr Amer 91 mL/min (>60); Glucose 77 mg/dL (74-106); Potassium 3.9 mmol/L (3.5-5.1); Sodium Level 140 mmol/L (136-145); T4 Free Direct 1.02 ng/dL (0.76-1.46); Thyroid Stim Hormone (TSH) 7.51 uIU/mL (0.358-3.74)
== END | disposition home or self-care (01) ==
LOC: MFPLAB 10:45
PROVIDERS: PCP Family Medicine; Referring Provider Family Medicine; Visit Provider Family Medicine
DX: I10 Essential (primary) hypertension (principal); E03.9 Hypothyroidism, unspecified
CPT/HCPCS: 36415; 80048; 84439; 84443

== ENCOUNTER → 2022-05-02 | Outpatient (CLI) | payer MEDICAID, SELFPAY ==
[2022-05-02 13:19] LABS: Anion Gap 10 (5-15); BUN 17 mg/dL (7-18); BUN/Creat Ratio 17.2 RATIO (10-20); Calcium,Total 8.9 mg/dL (8.5-10.1); Chloride 107 mmol/L (98-107); Creatinine, Serum 0.99 mg/dL (0.55-1.02); EST Glomerular Filtration Rate 61 mL/min (>60); Est Glom Filt Rate - Afr Amer 74 mL/min (>60); Glucose 113 mg/dL (74-106); Potassium 3.3 mmol/L (3.5-5.1); Sodium Level 141 mmol/L (136-145)
== END | disposition home or self-care (01) ==
LOC: MTLAB 09:54
PROVIDERS: PCP Family Medicine; Visit Provider Family Medicine
DX: I10 Essential (primary) hypertension (principal)
CPT/HCPCS: 36415; 80048

== ENCOUNTER → 2022-07-02 | Outpatient (CLI) | payer MEDICAID, SELFPAY ==
[2022-07-02 18:53] LABS: T4 Free Direct 1.88 ng/dL (0.76-1.46); Thyroid Stim Hormone (TSH) 0.02 uIU/mL (0.358-3.74)
== END | disposition home or self-care (01) ==
LOC: MFPLAB 15:35
PROVIDERS: PCP Family Medicine; Visit Provider Family Medicine
DX: E03.9 Hypothyroidism, unspecified (principal)
CPT/HCPCS: 36415; 84439; 84443

== ENCOUNTER → 2022-07-24 | Outpatient (CLI) | payer MEDICAID, SELFPAY ==
[2022-07-24 17:54] LABS: Anion Gap 6 (5-15); BUN 11 mg/dL (7-18); BUN/Creat Ratio 12.9 RATIO (10-20); Calcium,Total 9.2 mg/dL (8.5-10.1); Chloride 107 mmol/L (98-107); Creatinine, Serum 0.86 mg/dL (0.55-1.02); EST Glomerular Filtration Rate 72 mL/min (>60); Est Glom Filt Rate - Afr Amer 87 mL/min (>60); Glucose 100 mg/dL (74-106); Potassium 4.5 mmol/L (3.5-5.1); Sodium Level 140 mmol/L (136-145)
== END | disposition home or self-care (01) ==
PROVIDERS: PCP Family Medicine; Visit Provider Nurse Practitioner Family
DX: I10 Essential (primary) hypertension (principal)
CPT/HCPCS: 36415; 80048

== ENCOUNTER → 2022-12-27 | Outpatient (CLI) | payer MEDICAID, SELFPAY ==
[2022-12-27 15:13] LABS: Absolute Lymphocyte Count 2.65 X10^3/uL (0.83-4.51); Absolute Neutrophil Count 3.9 X10^3/uL (2.0-7.7); Basophil# 0.03 X10^3/uL; Basophil% 0.4 % (0-1); Eosinophil# 0.36 X10^3/uL; Eosinophils% 4.6 % (0-5); Hematocrit 35.1 % (37-47); Hemoglobin 11.5 g/dL (12.0-15.0); Lymphocyte # 2.65 X10^3/ul (0.83-4.51); Mean Corp Hgb Conc 32.8 g/dL (32-36); Mean Corpuscular Hgb 29.3 pg (27.0-32.0); Mean Corpuscular Volume 89.3 fL (81-99); Mean Platelet Vol. 9.9 fl (6.2-12.0); Monocyte# 0.67 X10^3/uL; Monocyte% 8.6 % (0-10); NRBC Flagged by Analyzer 0 % (0-5); Neutrophil # 3.91 X10^3/uL (2.7-7.7); Neutrophil % 50.1 % (47-70); Platelet Count 381 K/mm3 (150-450); RBC Distribution Width SD 53.2 fl (35.1-43.9); RET-HE 32.1 pg (30-35); Red Blood Count 3.93 M/mm3 (4.2-5.4); Reticulocyte Count 0.71 % (0.5-1.5); White Blood Count 7.8 K/mm3 (4.4-11.0)
[2022-12-27 15:25] LABS: Vitamin D,25 Hydroxy 76.8 ng/mL
[2022-12-27 15:32] LABS: ALB/GLOB Ratio 0.6 RATIO (0.9-2.4); AST(SGOT) 31 U/L (15-37); Alanine Aminotransfer ALT/SGPT 42 U/L (13-56); Albumin, Serum 2.6 g/dL (3.2-5.0); Alkaline Phosphatase 86 U/L (45-117); Anion Gap 8 (5-15); BUN 14 mg/dL (7-18); BUN/Creat Ratio 16.6 RATIO (10-20); Calcium,Total 8.5 mg/dL (8.5-10.1); Chloride 103 mmol/L (98-107); Cholesterol 173 mg/dL (200); Creatinine, Serum 0.84 mg/dL (0.55-1.02); EST Glomerular Filtration Rate 73 mL/min (>60); Erythrocyte Sedimentation Rate 41 mm/hr (0-30); Est Glom Filt Rate - Afr Amer 89 mL/min (>60); Ferritin 358 ng/mL (8-252); Glucose 100 mg/dL (74-106); High Density Lipoprotein 40 mg/dL; Iron 61 ug/dL (50-170); Magnesium 1.6 mg/dL (1.6-2.6); Potassium 3.5 mmol/L (3.5-5.1); Protein, Total 6.6 g/dL (6.4-8.2); Sodium Level 141 mmol/L (136-145); T4 Free Direct 0.86 ng/dL (0.76-1.46); Triglycerides 177 mg/dL; Very Low Density Lipoprotein 35 mg/dL (5-40)
== END | disposition home or self-care (01) ==
LOC: MFPLAB 12:13
PROVIDERS: PCP Family Medicine; Visit Provider Family Medicine
DX: E03.9 Hypothyroidism, unspecified (principal); N17.9 Acute kidney failure, unspecified; A41.9 Sepsis, unspecified organism; I10 Essential (primary) hypertension; D64.9 Anemia, unspecified; R10.9 Unspecified abdominal pain; E55.9 Vitamin D deficiency, unspecified; I88.0 Nonspecific mesenteric lymphadenitis
CPT/HCPCS: 36415; 80053; 80061; 82306; 82728; 83540; 83735; 84439; 84443; 85025; 85045; 85652; 86140

== ENCOUNTER → 2023-03-26 | Outpatient (CLI) | payer MEDICAID, SELFPAY ==
--- OUTSIDE RECORDS SUMMARY | 2023-03-26 09:40 | XMS RPT_ITS | CCD ---
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 Role Phone Zachary Gr Unavailable Lorena Flores Unavailable Zachary Gr Unavailable Tho Garcia Unavailable BRIAN SUAREZ, DORY Lord Admitting Unavailable MELIDA SUAREZ, DR PATTERSON Consulting Herbie MONTEZ MD, DR PATTERSON Primary Care Herbie THOMAS MD, ANS Attending Unavailable REHAN SUAREZ, REGAN Consulting Unavailable ARVIND LARRY MD Admitting Unavailable ISAIAS DANIEL Consulting Unavailable ARVIND LARRY MD Attending Unavailable ARVIND LARRY MD Primary Care Unavailable PROVIDER, UNKNOWN Consulting Unavailable PROVIDER, UNKNOWN Consulting Unavailable ISAIAS DANIEL Consulting Unavailable IRWIN VILLANUEVA Attending Unavailable IRWIN VILLANUEVA Primary Care Unavailable IRWIN VILLANUEVA Admitting Unavailable PROVIDER, UNKNOWN Consulting Unavailable PROVIDER, UNKNOWN Consulting Unavailable ISAIAS DANIEL Referring Unavailable ISAIAS DANIEL Consulting Unavailable CHANTAL ALMARAZ Attending Unavailable CHANTAL ALMARAZ Primary Care Unavailable CHANTAL ALMARAZ Admitting Unavailable PROVIDER, UNKNOWN Consulting Unavailable PROVIDER, UNKNOWN Consulting Unavailable Medications Completed/Discontinued Medications Medication Drug Class(es) Dates Sig (Normalized) Sig (Original) 12 hr buPROPion hydrochloride 100 mg extended release oral tablet (2 sources) Aminoketone Start: 10-18-2016 BUPROPION HCL ER (SR) 100 MG [id number] BUPROPION HCL [id number] Adina Washington LPN cholecalciferol 5000 unt oral capsule (2 sources) Vitamin D Start: 10-18-2016 VITAMIN D3 5000 UNIT CAPS CHOLECALCIFEROL [id number] Adina Washington LPN FLUoxetine 10 mg oral tablet (2 sources) Serotonin Reuptake Inhibitor Start: 10-18-2016 FLUOXETINE HCL 10 MG TABS FLUOXETINE HCL [id number] Adina Washington [employer] glycopyrrolate 1 mg oral tablet (2 sources) Start: 10-18-2016 ROBINUL 1 MG TABS GLYCOPYRROLATE [id number] Adina Washington [employer] LEVOTHYROXINE SODIUM (2 sources) l-Thyroxine Start: 10-18-2016 LEVO-T 112 MCG TABS unsure of dose LEVOTHYROXINE SODIUM [id number] Adina Washington [employer] Problems Active Problems Problem Classification Problem Date Documented Da te Episodic/Chronic Osteoarthritis (2 sources) Localized, primary osteoarthritis; Translations: [Unilateral primary osteoarthritis, right knee] Onset: 10-18-2016 10-31-2016 Chronic Unclassified (1 source) No current problems or disability 10-17-2016 Past or Other Problems Problem Classification Problem Date Documented Da te Episodic/Chronic Other non-traumatic joint disorders (2 sources) Knee pain; Translations: [Pain in right knee] Onset: 10-18-2016 10-18-2016 Episodic Results Test Name Value Interpretation Reference Range Facil ity Vital Signs Date Time Vital Sign Value Performing Clinician Faci lity 12-21-2022 20:57-0400 SaO2% (BldA) [Mass fraction] 96 % ARVIND [facility] Encounters Encounter Date Encounter Type Care Provider Facility Start: 03-16-2023 End: 03-18-2023 ambulatory ARVIND SUAREZ [facility] Start: 12-22-2022 End: 12-24-2022 Evaluation and management of inpatient DORY TORRES MD Facility:A Start: 12-21-2022 End: 12-22-2022 Emergency department patient visit ISAIAS Reynolds [facility] Start: 04-22-2022 End: 04-23-2022 Emergency department patient visit ISAIAS DANIEL [facility] Start: 01-28-2020 End: 01-28-2020 Patient encounter procedure Keanu Diana Work Phone: [facility] Start: 01-28-2020 Results Only Keanu Mendoza) [place] Work Phone: Gastroenterology Procedures Date Procedure Procedure Detail Performing Clinician Start: 03-16-2023 Urinalysis YASSER OMR AN Plan of Treatment Date Care Activity Detail Author Start: 10-18-2016 End: 10-18-2016 Appointment Appointment [facility] Work Phone: Start: 10-18-2016 End: 10-18-2016 X-ray exam, knee, 4 or more X-Ray, Knee [facility] Work Phone: PT ED PATIENT INFORMATION PT ED PATIENT INFORMATION Other 01/28/2020 [facility] Payers Date Payer Category Payer Unknown [id number] 2015 Medicaid [employer] [facility] [id number] 2015-Present Medicaid [id number] 1963 Unknown [id number] 1963 Unknown [id number] 1965 Unknown [id number] 1965 Unknown [id number] Unknown [id number] Social History Date Type Detail Facility Tobacco smoking status NHIS Unknown if ev er smoked [facility] Sex Assigned At Not on file [facility] Clinical Notes 12-24-2022 to 03-22-2023 Note Date & Type Note Facility 03-22-2023 Note . MICRO - Microbiology PROCEDURE: Blood Culture (bacterial) [*1] SOURCE: Blood BODY SITE: COLLECTED DATE/TIME: 03/16/2023 17:05 EST RECEIVED DATE/TIME: 03/17/2023 20:51 EST START DATE/TIME: 03/17/2023 20:51 EST FREE TEXT SOURCE: FINAL REPORTS Final Report [] Verified Date/Time/Personnel: 03/22/2023 21:00 EST Blood Culture: No Growth at 5 days. PRELIMINARY REPORTS Preliminary Report [] Verified Date/Time/Personnel: 03/17/2023 21:59 EST Culture has been received in lab and is no growth to date. Routine cultures are held for 5 days. Performing Locations *1: This test was performed at: [address], [facility] , [facility] ([place]) 03-22-2023 Note . MICRO - Microbiology PROCEDURE: Blood Culture (bacterial) [*1] SOURCE: Blood BODY SITE: COLLECTED DATE/TIME: 03/16/2023 17:00 EST RECEIVED DATE/TIME: 03/17/2023 20:49 EST START DATE/TIME: 03/17/2023 20:50 EST FREE TEXT SOURCE: FINAL REPORTS Final Report [] Verified Date/Time/Personnel: 03/22/2023 21:00 EST Blood Culture: No Growth at 5 days. PRELIMINARY REPORTS Preliminary Report [] Verified Date/Time/Personnel: 03/17/2023 21:59 EST Culture has been received in lab and is no growth to date. Routine cultures are held for 5 days. Performing Locations *1: This test was performed at: [address], [facility] , [facility] ([place]) 12-27-2022 Note . MICRO - Microbiology PROCEDURE: Blood Culture (bacterial) [*1] SOURCE: Blood BODY SITE: COLLECTED DATE/TIME: 12/21/2022 17:20 EDT RECEIVED DATE/TIME: 12/22/2022 16:50 EDT START DATE/TIME: 12/22/2022 16:50 EDT FREE TEXT SOURCE: FINAL REPORTS Final Report [] Verified Date/Time/Personnel: 12/27/2022 16:59 EDT Blood Culture: No Growth at 5 days. PRELIMINARY REPORTS Preliminary Report [] Verified Date/Time/Personnel: 12/22/2022 17:59 EDT Culture has been received in lab and is no growth to date. Routine cultures are held for 5 days. Performing Locations *1: This test was performed at: [address], [facility] , [facility] ([place]) 12-27-2022 Note . MICRO - Microbiology PROCEDURE: Blood Culture (bacterial) [*1] SOURCE: Blood BODY SITE: COLLECTED DATE/TIME: 12/21/2022 15:00 EDT RECEIVED DATE/TIME: 12/22/2022 16:48 EDT START DATE/TIME: 12/22/2022 16:50 EDT FREE TEXT SOURCE: FINAL REPORTS Final Report [] Verified Date/Time/Personnel: 12/27/2022 16:59 EDT Blood Culture: No Growth at 5 days. PRELIMINARY REPORTS Preliminary Report [] Verified Date/Time/Personnel: 12/22/2022 17:59 EDT Culture has been received in lab and is no growth to date. Routine cultures are held for 5 days. Performing Locations *1: This test was performed at: [address], [address] [place] [address] ([facility] 12-27-2022 Note . MICRO - Microbiology PROCEDURE: Stool Culture [^1 *1] SOURCE: Stool BODY SITE: COLLECTED DATE/TIME: 12/23/2022 22:36 EDT RECEIVED DATE/TIME: 12/24/2022 07:38 EDT START DATE/TIME: 12/24/2022 07:38 EDT FREE TEXT SOURCE: FINAL REPORTS Final Report [] Verified Date/Time/Personnel: 12/27/2022 11:53 EDT Normal stool jason present. Salmonella: Negative Shigella: Negative Campylobacter: Negative PRELIMINARY REPORTS Preliminary Report [] Verified Date/Time/Personnel: 12/26/2022 11:32 EDT Normal stool jason present. Negative for stool pathogens at 48 hours. Final report to follow. Interpretive Data ^1: Culture Stool Requests for alternative pathogens including Yersinia, E. coli 0157, C. difficile toxin, Rotavirus, Giardia and parasites require specific requests. Performing Locations *1: This test was performed at: [address], [facility] , [facility] ([place]) 12-27-2022 Note . MICRO - Microbiology PROCEDURE: Blood Culture (bacterial) [*1] SOURCE: Blood BODY SITE: COLLECTED DATE/TIME: 12/22/2022 02:37 EDT RECEIVED DATE/TIME: 12/22/2022 03:26 EDT START DATE/TIME: 12/22/2022 03:26 EDT FREE TEXT SOURCE: FINAL REPORTS Final Report [] Verified Date/Time/Personnel: 12/27/2022 03:59 EDT Blood Culture: No Growth at 5 days. PRELIMINARY REPORTS Preliminary Report [] Verified Date/Time/Personnel: 12/22/2022 03:59 EDT Culture has been received in lab and is no growth to date. Routine cultures are held for 5 days. Performing Locations *1: This test was performed at: [address], [facility] , [facility] ([place]) 12-27-2022 Note . MICRO - Microbiology PROCEDURE: Blood Culture (bacterial) [*1] SOURCE: Blood BODY SITE: COLLECTED DATE/TIME: 12/22/2022 02:37 EDT RECEIVED DATE/TIME: 12/22/2022 03:26 EDT START DATE/TIME: 12/22/2022 03:26 EDT FREE TEXT SOURCE: FINAL REPORTS Final Report [] Verified Date/Time/Personnel: 12/27/2022 03:59 EDT Blood Culture: No Growth at 5 days. PRELIMINARY REPORTS Preliminary Report [] Verified Date/Time/Personnel: 12/22/2022 03:59 EDT Culture has been received in lab and is no growth to date. Routine cultures are held for 5 days. Performing Locations *1: This test was performed at: [address], [facility] , [facility] ([place]) 12-25-2022 Note . MICRO - Microbiology PROCEDURE: Shiga Toxins 1 and 2 [[id number]: [id number] ^1 *1] SOURCE: Stool BODY SITE: COLLECTED DATE/TIME: 12/23/2022 22:36 EDT RECEIVED DATE/TIME: 12/24/2022 07:38 EDT START DATE/TIME: 12/24/2022 07:38 EDT FREE TEXT SOURCE: FINAL REPORTS Final Report [] Verified Date/Time/Personnel: 12/25/2022 14:58 EDT Absence of Shiga toxin 1 Absence of Shiga toxin 2 Order Comments O1: Shiga Toxins 1 and 2 ordered by lab as part of Culture Stool Panel Interpretive Data ^1: Shiga Toxins 1 and 2 Testing performed by immunochromatography. Performing Locations *1: This test was performed at: [address], [address] [place] [address] ([place]) 12-25-2022 Note . MICRO - Microbiology PROCEDURE: Stool Culture [^1 *1] SOURCE: Stool BODY SITE: COLLECTED DATE/TIME: 12/21/2022 16:37 EDT RECEIVED DATE/TIME: 12/22/2022 16:50 EDT START DATE/TIME: 12/22/2022 16:50 EDT FREE TEXT SOURCE: FINAL REPORTS Final Report [] Verified Date/Time/Personnel: 12/25/2022 11:49 EDT Normal stool jason present. Salmonella: Negative Shigella: Negative Campylobacter: Negative PRELIMINARY REPORTS Preliminary Report [] Verified Date/Time/Personnel: 12/24/2022 12:06 EDT Normal stool jason present. Negative for stool pathogens at 48 hours. Final report to follow. Interpretive Data ^1: Culture Stool Requests for alternative pathogens including Yersinia, E. coli 0157, C. difficile toxin, Rotavirus, Giardia and parasites require specific requests. Performing Locations *1: This test was performed at: [address], [address] [place] [address] [facility] 12-25-2022 Note . MICRO - Microbiology PROCEDURE: Stool Culture [^1 *1] SOURCE: Stool BODY SITE: COLLECTED DATE/TIME: 12/22/2022 02:51 EDT RECEIVED DATE/TIME: 12/22/2022 07:31 EDT START DATE/TIME: 12/22/2022 07:31 EDT FREE TEXT SOURCE: FINAL REPORTS Final Report [] Verified Date/Time/Personnel: 12/25/2022 11:48 EDT Normal stool jason present. Salmonella: Negative Shigella: Negative Campylobacter: Negative PRELIMINARY REPORTS Preliminary Report [] Verified Date/Time/Personnel: 12/24/2022 12:06 EDT Normal stool jason present. Negative for stool pathogens at 48 hours. Final report to follow. Interpretive Data ^1: Culture Stool Requests for alternative pathogens including Yersinia, E. coli 0157, C. difficile toxin, Rotavirus, Giardia and parasites require specific requests. Performing Locations *1: This test was performed at: [address] 12-24-2022 Note . MICRO - Microbiology PROCEDURE: Shiga Toxins 1 and 2 [[id number]: [id number] ^1 *1] SOURCE: Stool BODY SITE: COLLECTED DATE/TIME: 12/22/2022 07:31 EDT RECEIVED DATE/TIME: 12/22/2022 07:31 EDT START DATE/TIME: 12/22/2022 07:31 EDT FREE TEXT SOURCE: FINAL REPORTS Final Report [] Verified Date/Time/Personnel: 12/24/2022 13:09 EDT Absence of Shiga toxin 1 Absence of Shiga toxin 2 Order Comments O1: Shiga Toxins 1 and 2 ordered by lab as part of Culture Stool Panel Interpretive Data ^1: Shiga Toxins 1 and 2 Testing performed by immunochromatography. Performing Locations *1: This test was performed at: [address], [address] [place] [address] 12-24-2022 Note . MICRO - Microbiology PROCEDURE: Shiga Toxins 1 and 2 [[id number]: [id number] ^1 *1] SOURCE: Stool BODY SITE: COLLECTED DATE/TIME: 12/22/2022 16:50 EDT RECEIVED DATE/TIME: 12/22/2022 16:50 EDT START DATE/TIME: 12/22/2022 16:50 EDT FREE TEXT SOURCE: FINAL REPORTS Final Report [] Verified Date/Time/Personnel: 12/24/2022 13:09 EDT Absence of Shiga toxin 1 Absence of Shiga toxin 2 Order Comments O1: Shiga Toxins 1 and 2 ordered by lab as part of Culture Stool Panel Interpretive Data ^1: Shiga Toxins 1 and 2 Testing performed by immunochromatography. Performing Locations *1: This test was performed at: [address], [address] [place] [address] ([place]) 12-24-2022 Note . MICRO - Microbiology PROCEDURE: Urine Culture [*1] SOURCE: Urine, Clean Catch BODY SITE: COLLECTED DATE/TIME: 12/22/2022 02:51 EDT RECEIVED DATE/TIME: 12/22/2022 07:26 EDT START DATE/TIME: 12/22/2022 07:26 EDT FREE TEXT SOURCE: FINAL REPORTS Final Report [] Verified Date/Time/Personnel: 12/24/2022 07:37 EDT No growth at 48 hours. PRELIMINARY REPORTS Preliminary Report [] Verified Date/Time/Personnel: 12/23/2022 09:14 EDT No growth to date Performing Locations *1: This test was performed at: [address], [address] [place] [address] ([place]) Summary Purpose Family History No Family History Records FoundNo Family History Records FoundNo Family History Records Found Advance Directives No Advanced Directives Records FoundNo Advanced Directives Records FoundNo Advanced Directives Records Found Additional Source Comments Source Comments (unrecognize d section and content) In the event this informatio n is protected by the Federal Confidentiality of Alcohol and Drug Abuse Patient Records regulations: The Federal rules restrict any use of the information to criminally investigate or prosecute any alcohol or drug abuse patient.[facility] INFORMATION SOURCE (unrecogn ized section and content) DATE CREATED AUTHOR AUTHOR'S ORGANIZ ATION 03/24/2023 [facility] ([place]) DATE CREATED AUTHOR AUTHOR'S ORGANIZ ATION 03/25/2023 [facility] FOR RECORDS PERTAINING TO PATIENTS WHO ARE OR HAVE BEEN ENROLLED IN A CHEMICAL DEPENDENCY/SUBSTANCEABUSE PROGRAM, SOME INFORMATION MAY BE OMITTED. This clinical summary was aggregated from multiple sources. Caution should be exercised in using it in the provision of clinical care. This summary normalizes information from multiple sources, and as a consequence, information in this document may materially change the coding, format and clinical context of patient data. In addition, data may be omitted in some cases. CLINICAL DECISIONS SHOULD BE BASED ON THE PRIMARY CLINICAL RECORDS. [facility]. provides no warranty or guarantee of the accuracy or completeness of information in this document.
[2023-03-26 09:57] LABS: Hematocrit 36.8 % (37-47); Hemoglobin 12.1 g/dL (12.0-15.0); Mean Corp Hgb Conc 32.9 g/dL (32-36); Mean Corpuscular Hgb 29.4 pg (27.0-32.0); Mean Corpuscular Volume 89.5 fL (81-99); Mean Platelet Vol. 8.4 fl (6.2-12.0); Platelet Count 482 K/mm3 (150-450); RBC Distribution Width CV 13.6 % (11.6-14.6); RBC Distribution Width SD 44.6 fl (35.1-43.9); Red Blood Count 4.11 M/mm3 (4.2-5.4); White Blood Count 5.6 K/mm3 (4.4-11.0)
[2023-03-26 10:49] LABS: Anion Gap 3 (5-15); BUN 13 mg/dL (7-18); BUN/Creat Ratio 16.4 RATIO (10-20); Chloride 109 mmol/L (98-107); Creatinine, Serum 0.79 mg/dL (0.55-1.02); EST Glomerular Filtration Rate 78 mL/min (>60); Est Glom Filt Rate - Afr Amer 95 mL/min (>60); Glucose 102 mg/dL (74-106); Potassium 3.6 mmol/L (3.5-5.1); Sodium Level 139 mmol/L (136-145); Thyroid Stim Hormone (TSH) 0.56 uIU/mL (0.358-3.74)
== END | disposition home or self-care (01) ==
LOC: MTLAB 09:16
PROVIDERS: PCP Family Medicine; Referring Provider Family Medicine; Visit Provider Family Medicine
DX: E03.9 Hypothyroidism, unspecified (principal); N17.9 Acute kidney failure, unspecified
CPT/HCPCS: 36415; 80048; 84443; 85027

== ENCOUNTER → 2023-10-14 | Outpatient (CLI) | payer MEDICAID, SELFPAY ==
--- NOTE | 2023-10-14 10:29 | US_ITS ---
STUDY: RENAL ULTRASOUND - COMPLETE REASON FOR EXAM: Female, 58 years old. UTI TECHNIQUE: Ultrasound evaluation of the kidneys was performed with real-time and static acosta-scale imaging. COMPARISON: None. FINDINGS: RIGHT KIDNEY: Normal location of the right kidney, which is normal in size. The right kidney measures 9.6 cm. There is a normal cortex of the right kidney. The renal cortex measures 0.8 cm. There is no right renal mass or cyst. There are no right renal calculi. There is no right hydronephrosis. DISTAL RIGHT URETER: There is non-visualization of the distal right ureter. There is no demonstrated right ureterovesical junction calculus. There is a visualized right ureteral jet. LEFT KIDNEY: Normal location of the left kidney, which is normal in size. The left kidney measures 10.7 cm. There is a normal cortex of the left kidney. The renal cortex measures 0.9 cm. There is no left renal mass or cyst. There are no left renal calculi. There is no left hydronephrosis. DISTAL LEFT URETER: There is non-visualization of the distal left ureter. There is no demonstrated left ureterovesical junction calculus. There is a visualized left ureteral jet. BLADDER: The distended urinary bladder has a volume of 117 ml. The empty urinary bladder has a volume of 8 ml. There is a normal wall thickness of the distended urinary bladder. There is no demonstrated mass within the urinary bladder. There are no demonstrated bladder calculi. US/Kidney and Bladder IMPRESSION: Normal ultrasound of the kidneys and urinary bladder. Electronically Signed: Rudy Jorgensen MD at 12:46 EDT ,
== END | disposition home or self-care (01) ==
PROVIDERS: PCP Family Medicine; Referring Provider Urology; Visit Provider Urology
DX: N39.0 Urinary tract infection, site not specified (principal)
CPT/HCPCS: 76770

== ENCOUNTER → 2023-12-25 | Outpatient (CLI) | payer MEDICAID, SELFPAY ==
--- NOTE | 2023-12-25 14:49 | ECHOCS_ITS ---
Reason For Study: Murmur Procedure This was a 2D Doppler, Color Flow transthoracic echocardiogram. The study was technically difficult. Contrast injection was performed. Exam performed in department. Left Ventricle Normal LV size. Left ventricular systolic function is normal. The left ventricular ejection fraction is 65 %. No regional wall motion abnormalities noted. Right Ventricle Normal RV size. Normal systolic function. Atria Normal left atrium. Normal right atrium. Mitral Valve Normal mitral valve. Mild (1+) mitral valve insufficiency. Tricuspid Valve Normal tricuspid valve. Mild tricuspid valve insufficiency. Pulmonary artery systolic pressure is 34 mmHg. Aortic Valve Trisinus/trileaflet aortic valve. Mild focal aortic valve calcification. Mild (1+) aortic valve insufficiency. Pulmonic Valve Normal pulmonic valve. Great Vessels Normal aortic root. The pulmonary artery is normal size. Inferior vena cava collapse with respiration. Pericardium/Pleural No pericardial effusion. Medication 22 gauge I.V. with prn adaptor inserted into right arm. Diluted definity 2ml given slow IV push to enhance endocardial definition. MMode/2D Measurements & Calculations LVIDd: 5.2 cm IVSd: 0.87 cm Ao root diam: 3.3 cm LVIDs: 3.4 cm LVPWd: 0.83 cm RVDd: 3.1 cm FS: 34.2 % LAV(MOD-bp): 67.0 ml LVAd ap4: 36.5 cm2 SV(MOD-sp4): 86.9 ml LAV(MOD-bp) Indexed: 34.5 ml/m2 LVLd ap4: 8.6 cm SI(MOD-sp4): 44.7 ml/m2 LAV(MOD-sp2): 56.2 ml EDV(MOD-sp4): 129.5 ml LAV(MOD-sp4): 65.4 ml EDV(sp4-el): 132.3 ml LVAs ap4: 17.8 cm2 LVLs ap4: 6.6 cm ESV(MOD-sp4): 42.6 ml ESV(sp4-el): 40.9 ml EF(MOD-sp4): 67.1 % EF(sp4-el): 69.1 % SV(sp4-el): 91.4 ml LA A4 area: 22.1 cm2 LA dimension(2D): 3.4 cm RA A4 area: 13.3 cm2 TAPSE: 2.1 cm Time Measurements MV dec time: 0.21 sec Doppler Measurements & Calculations MV E max arnoldo: 90.2 cm/sec Lat Peak E' Arnoldo: 10.6 cm/sec Med Peak E' Arnoldo: 8.4 cm/sec MV A max arnoldo: 84.1 cm/sec E/E' lat: 8.5 E/E' med: 10.7 MV E/A: 1.1 MV V2 max: 111.0 cm/sec MV P1/2t max arnoldo: 111.7 cm/sec Ao V2 max: 174.8 cm/sec MV max P.9 mmHg MV P1/2t: 83.3 msec Ao max P.2 mmHg MV V2 mean: 54.1 cm/sec MV dec slope: 392.9 cm/sec2 MV mean P.4 mmHg MVA(P1/2t): 2.6 cm2 MV V2 VTI: 34.8 cm LV V1 max: 138.4 cm/sec MR max arnoldo: 509.6 cm/sec PA V2 max: 100.1 cm/sec LV V1 max P.7 mmHg MR max P.9 mmHg AI Accel Time: 0.58 sec TR max arnoldo: 281.6 cm/sec TR max P.7 mmHg ECHO/Echo Complete W/ Contrast Interpretation Summary Normal LV size. Left ventricular systolic function is normal. The left ventricular ejection fraction is 65 %. Contrast injection was performed. Ordering Physician: Cody Gonzáles Referring Physician: Cody Gonzáles Performed By: Juan Danielle RCS
== END | disposition home or self-care (01) ==
LOC: CVS 14:48
PROVIDERS: PCP Family Medicine; Referring Provider Family Medicine; Visit Provider Family Medicine
DX: R01.1 Cardiac murmur, unspecified (principal)
CPT/HCPCS: 93306; Q9957; A4216; C8929

== ENCOUNTER → 2024-06-11 | Outpatient (CLI) | payer MEDICAID, SELFPAY ==
--- NOTE | 2024-06-11 09:22 | RAD_ITS ---
PROCEDURE: TIBIA FIBULA 2 VIEWS 06/11/2024 REASON FOR EXAM: REMOTE FALL, MID FIBULA PAIN TECHNIQUE: 2 views of the left lower leg COMPARISON: None FINDINGS: Bones: The tibia and fibula appear intact. Joints: Proximal and distal joint spaces are maintained. Soft tissues: Soft tissue swelling. No gas or unexpected radiopaque foreign body. RAD/Tibia & Fibula 2 Views IMPRESSION: No fracture or dislocation. Reading Location: [facility]
== END | disposition home or self-care (01) ==
LOC: MTRAD 09:19
PROVIDERS: PCP Family Medicine; Referring Provider Family Medicine; Visit Provider Family Medicine
DX: M79.605 Pain in left leg (principal)
CPT/HCPCS: 73590

== ENCOUNTER → 2024-07-29 | Outpatient (CLI) | payer MEDICAID, SELFPAY ==
[2024-07-29 12:28] LABS: Hematocrit 36.8 % (37-47); Hemoglobin 12.1 g/dL (12.0-15.0); Mean Corp Hgb Conc 32.9 g/dL (32-36); Mean Corpuscular Hgb 29.3 pg (27.0-32.0); Mean Corpuscular Volume 89.1 fL (81-99); Mean Platelet Vol. 9.3 fl (6.2-12.0); Platelet Count 347 K/mm3 (150-450); RBC Distribution Width SD 45.5 fl (35.1-43.9); Red Blood Count 4.13 M/mm3 (4.2-5.4); White Blood Count 6.5 K/mm3 (4.4-11.0)
[2024-07-29 13:00] LABS: ALB/GLOB Ratio 1.4 RATIO (0.9-2.4); AST(SGOT) 19 U/L (<=31); Alanine Aminotransfer ALT/SGPT 14 U/L (<=34); Albumin, Serum 4.2 g/dL (3.4-4.8); Alkaline Phosphatase 86 U/L (35-104); Anion Gap 13 (5-15); BUN 14 mg/dL (4-19); BUN/Creat Ratio 18.7 RATIO (10-20); Calcium,Total 9.8 mg/dL (7.6-11.0); Carbon Dioxide 23.4 mmol/L (21.0-32.0); Chloride 101 mmol/L (98-108); Creatinine, Serum 0.72 mg/dL (0.70-1.20); EST Glomerular Filtration Rate 95 (>60); Ferritin 113 ng/mL (22-378); Globulin 3.1 g/dL (2.2-4.2); Glucose 101 mg/dL (70-99); Iron 66 ug/dL (50-170); Potassium 3.8 mmol/L (3.3-5.1); Protein, Total 7.3 g/dL (5.9-8.4); Sodium Level 137 mmol/L (133-145); Thyroid Stim Hormone (TSH) 0.035 uIU/mL (0.300-4.200); Total Bilirubin 0.33 mg/dL (0.00-1.30)
[2024-07-29 13:21] LABS: Cholesterol 207 mg/dL (<=200); High Density Lipoprotein 57 mg/dL; Low Density Lipoprotein Calc. 133 mg/dL; Triglycerides 86 mg/dL; Very Low Density Lipoprotein 17 mg/dL (5-40); cholesterol:hdl ratio screen 3.64
== END | disposition home or self-care (01) ==
LOC: MFPLAB 10:07
PROVIDERS: PCP Family Medicine; Referring Provider Family Medicine; Visit Provider Family Medicine
DX: E03.9 Hypothyroidism, unspecified (principal); D64.9 Anemia, unspecified; I10 Essential (primary) hypertension; R73.01 Impaired fasting glucose
CPT/HCPCS: 36415; 80053; 80061; 82728; 83540; 84439; 84443; 85027

== ENCOUNTER → 2024-09-14 | Outpatient (CLI) | payer MEDICAID, SELFPAY | END | disposition home or self-care (01) | LOC: MFPLAB 09:36 | PROVIDERS: PCP Family Medicine; Referring Provider Family Medicine; Visit Provider Family Medicine | DX: E03.9 Hypothyroidism, unspecified (principal) | CPT/HCPCS: 36415; 84439; 84443 ==

== ENCOUNTER → 2024-09-22 | Outpatient (CLI) | payer MEDICAID, SELFPAY ==
[2024-09-22 21:59] LABS: Color, Urine Yellow (Yellow); Glucose, Dipstick Normal (Normal); Ketone-Dipstick Negative (Negative); Leukocyte Esterase-Dipstick Negative /ul (Negative); Nitrite-Dipstick Negative (Negative); Occult Blood-Urine Negative /ul (Negative); Protein-Dipstick Negative (Negative); Specific Gravity, Urine 1.015 (1.002-1.030); Urine Bilirubin Dipstick Negative (Negative)
--- OUTSIDE RECORDS SUMMARY | 2024-09-22 23:10 | XMS RPT_ITS | CCD ---
Author Organization [facility] Care Team Providers Care Freight Adjuster Name Role Phone Zachary Gr Unavailable Lorena Flores Unavailable Zachary Gr Unavailable Tho Garcia Unavailable BRIAN SUAREZ, DORY Lord Admitting Unavailable ELIECER SUAREZ, DR PATTERSON Consulting Herbie GONZÁLES MD, DR PATTERSON Primary Care Herbie THOMAS MD, ANS Attending Unavailable REHAN SUAREZ, [facility] Consulting Unavailable ISAIAS DANIEL Consulting Unavailable PRERNA LARRY MD Admitting Unavailable PRERNA LARRY MD Attending Unavailable PRERNA LARRY MD Primary Care Unavailable PROVIDER, UNKNOWN Consulting Unavailable PROVIDER, UNKNOWN Consulting Unavailable CY VILLANUEVA Admitting Unavailable CY VILLANUEVA Attending Unavailable CY VILLANUEVA Primary Care Unavailable ISAIAS DANIEL Consulting Unavailable PROVIDER, UNKNOWN Consulting Unavailable PROVIDER, UNKNOWN Consulting Unavailable Eliecer SUAREZ, Dr. Patterson Primary Care Provider Dr. Cody Gonzáles MD Attending Provider Dr. Cody Gonzáles MD Referring Provider Radha SUAREZ, Dr. Pate Attending Provider [phone] Cody Gonzáles Attending Unavailable Cody Gonzáles Referring Unavailable Cody Gonzáles Primary Care Unavailable Cody Gonzáles Attending Unavailable Cody Gonzáles Referring Unavailable Cody Gonzáles Primary Care Unavailable Cody Gonzáles Attending Unavailable Cody Gonzáles Referring Unavailable Cody Gonzáles Primary Care Unavailable Cody Gonzáles Attending Unavailable Cody Gonzáles Referring Unavailable Cody Gonzáles Primary Care Unavailable Cody Gonzáles Primary Care Unavailable Pankaj Garcia Attending Unavailable Cody Gonzáles Primary Care Unavailable Cody Gonzáles Attending Unavailable Cody Gonzáles Referring Unavailable Cody Gonzáles Primary Care Unavailable Herlinda Garcia Attending Unavailable Herlinda Garcia Referring Unavailable Allergies Allergy Classification Reported Allergen(s) Allergy Type Date of Onset Reaction(s) Facility (12 sources) Latex Allergy to substance 07-20-[address] [facility] (1 source) Latex Drug allergy (disorder) 07-20-2020 [facility] Repository Medications Current Medications Medication Drug Class(es) Dates Sig (Normalized) Sig (Original) cholecalciferol 0.05 mg chewable tablet (20 sources) Vitamin D Start: 07-20-2020 take 1 tablet by mouth every week Cholecalciferol (Vitamin D3) 50 mcg (2,000 unit) tablet,chewable Active 5000 U PO .weekly July 20, 2020 2:08pm Start: 04-26-2017 End: 07-20-2020 Cholecalciferol (Vitamin D3) 2,000 UNIT tablet,chewable Discontinued 5000 U PO DAILY April 26, 2017 1:00am July 20, 2020 2:11pm Start: 04-26-2017 End: 07-20-2020 take 5000 [IU] by mouth once daily Cholecalciferol (Vitamin D3) Discontinued 5000 UNIT PO DAILY April 26, 2017 12:00am July 20, 2020 1:11pm Start: 10-18-2016 VITAMIN D3 500 0 UNIT CAPS CHOLECALCIFEROL [id number] Adina Washington LPN glycopyrrolate 2 mg oral tablet (20 sources) Start: 06-17-2019 End: 07-20-2020 take 2 tablets by mouth twice daily Glycopyrrolate 2 mg tablet Active 0 PO TWICE A DAY July 20, 2020 2:10pm take 2 tablets PO twice a day; levothyroxine sodium 0.15 mg oral tablet (20 sources) l-Thyrox ine Start: 07-20-2020 take 1 tablet by mouth once daily Levothyroxine 150 mcg tablet Active 150 ug PO DAILY July 20, 2020 12:00am Start: 10-18-2016 LEVO-T 112 MCG TABS unsure of dose LEVOTHYROXINE SODIUM [id number] Adina Washington LPN Start: 10-18-2016 LEVO-T 112 MCG TABS unsure of dose LEVOTHYROXINE SODIUM [id number] Adina An Padmini NICOLAS Start: 03-04-2013 End: 07-20-2020 Levothyroxine 175 MCG tablet Discontinued 100 ug PO DAILY March 04, 2013 1:00am July 20, 2020 2:08pm thyroid Start: 03-04-2013 End: 07-20-2020 take 100 ug by mouth once daily Levothyroxine Discontinued 100 MCG PO DAILY March 04, 2013 12:00am July 20, 2020 1:08pm melatonin 5 mg oral capsule (12 sources) Start: 07-20-2020 take 1 mg by mouth at bedtime Melatonin 5 mg capsule Active mg PO AT BEDTIME July 20, 2020 12:00am Start: 07-20-2020 take 1 mg by mouth at bedtime Melatonin Active MG PO AT BEDTIME July 19, 2020 11:00pm 24 hr mirabegron 50 mg extended release oral tablet (12 sources) beta3-Adrenergic Agonist Start: 06-17-2019 take 1 tablet by mouth once daily Mirabegron 50 mg tablet extended release 24 hr Active 100 mg PO DAILY June 17, 2019 12:00am Completed/Discontinued Medications Medication Drug Class(es) Dates Sig (Normalized) Sig (Original) 24 hr budesonide 9 mg extended release oral capsule (12 sources) Corticosteroid Start: 01-19-2020 End: 01-20-2020 take 1 capsule by mouth once daily Budesonide 9 mg capsule, extended release Discontinued 9 mg PO DAILY 56 0 January 19, 2020 1:00am January 20, 2020 5:12pm 12 hr buPROPion hydrochloride 100 mg extended release oral tablet (14 sources) Aminoketone Start: 10-18-2016 BUPROPION HCL ER (SR) 100 MG IN30A-HTS BUPROPION HCL [id number] Adina An Padmini NICOLAS Start: 03-04-2013 take 1 tablet by brittney th twice daily Bupropion Hcl 200 MG tablet Active 200 mg PO TWICE A DAY March 04, 2013 1:00am celecoxib 200 mg oral capsule (12 sources) Nonsteroidal Anti-inflammatory Drug Start: 07-24-2017 End: 06-17-2019 take 1 capsule by mouth once daily Celecoxib (Celebrex) 200 mg capsule Discontinued 200 mg PO daily 30 2 July 24, 2017 12:00am June 17, 2019 10:07am pt with egd dx of ulcer chlorthalidone 50 mg oral tablet (12 sources) Thiazide-like Diuretic Start: 03-04-2013 End: 03-06-2013 Chlorthalidone 50 MG tablet Discontinued 25 mg PO DAILY March 04, 2013 1:00am March 06, 2013 3:55pm Start: 03-04-2013 End: 03-06-2013 take 25 mg by mouth once daily Chlorthalidone Discontinued 25 MG PO DAILY March 04, 2013 12:00am March 06, 2013 2:55pm ciprofloxacin 100 mg/ml oral suspension (20 sources) Quinolone Antimicrobial Start: 01-08-2020 End: 07-20-2020 take 1 tablet by mouth twice daily Ciprofloxacin Hcl 500 MG tablet Discontinued 500 mg PO TWICE A DAY 20 January 08, 2020 1:00am July 20, 2020 2:08pm Start: 01-08-2020 End: 07-20-2020 take 1 capsule by mouth twice daily Ciprofloxacin 500 MG/5 ML suspension,microcapsule recon Discontinued 500 mg PO TWICE A DAY 20 January 08, 2020 1:00am July 20, 2020 2:08pm Start: 12-27-2019 End: 01-05-2020 take 1 tablet by mouth twice daily Ciprofloxacin Hcl 500 MG tablet Discontinued 500 mg PO TWICE A DAY 14 December 27, 2019 12:00am January 05, 2020 3:48pm FLUoxetine 10 mg oral tablet (14 sources) Serotonin Reuptake Inhibitor Start: 10-18-2016 FLUOXETINE HCL 10 MG TABS FLUOXETINE HCL [id number] Adina Washington LPN Start: 03-04-2013 take 3 capsules by m outh once daily Fluoxetine 20 MG capsule Active 60 mg PO DAILY March 04, 2013 1:00am Start: 03-04-2013 take 60 mg by mouth once daily Fluoxetine Active 60 MG PO DAILY March 04, 2013 12:00am glycopyrrolate 1 mg oral tablet (2 sources) Start: 10-18-2016 ROBINUL 1 MG T ABS GLYCOPYRROLATE [id number] Adina Washington LPN metroNIDAZOLE 500 mg oral tablet (20 sources) Nitroimidazole Antimicrobial Start: 01-08-2020 End: 07-20-2020 Metronidazole 500 MG tablet Discontinued 0 mg PO THREE TIMES A DAY 30 January 08, 2020 1:00am July 20, 2020 2:09pm Start: 01-08-2020 End: 07-20-2020 Metronidazole Discontinued 0 MG PO THREE TIMES A DAY January 08, 2020 12:00am July 20, 2020 1:09pm Start: 01-08-2020 End: 07-20-2020 Metronidazole Discontinued 0 MG PO THREE TIMES A DAY January 08, 2020 1:00July 20, 2020 2:09pm Start: 12-27-2019 End: 01-05-2020 take 1 tablet by mouth every eight hours Metronidazole 500 MG tablet Discontinued 500 mg PO Q8H December 27, 2019 12:00January 05, 2020 3:48pm Drug Treatment Unknown - unknown (1 source) No information available. ondansetron 4 mg disintegrating oral tablet (12 sources) Serotonin-3 Receptor Antagonist Start: End: take 1 tablet by mouth every eight hours as needed for nausea Ondansetron 4 MG tablet Discontinued 4 mg PO EVERY 8 HOURS NEEDED as needed for Nausea December 27, 2019 12:00am January 05, 2020 3:48pm pantoprazole 40 mg delayed release oral tablet (12 sources) Proton Pump Inhibitor Start: End: take 1 tablet by mouth once daily Pantoprazole 40 MG tablet Discontinued 40 mg PO DAILY December 27, 2019 12:00am January 05, 2020 3:48pm sucralfate 1000 mg oral tablet (12 sources) Aluminum Complex Start: End: take 1 tablet by mouth four times daily Sucralfate 1 GM tablet Discontinued 1 g PO 4 TIMES DAILY 120 July 05, 2017 12:00am June 17, 2019 10:08am sulfaSALAzine 500 mg oral tablet (12 sources) Aminosalicylate Start: End: take 1 tablet by mouth once daily at mealtime Sulfasalazine 500 mg tablet Discontinued 0.5 g PO DAILY 28 0 January 20, 2020 1:00am July 20, 2020 2:09pm give with food (meal/snack) Start: 01-20-2020 End: 07-20-2020 take 0.5 g by mouth once daily at mealtime Sulfasalazine Discontinued 0.5 GM PO DAILY January 20, 2020 12:00am July 20, 2020 1:09pm give with food (meal/snack) Problems Active Problems Problem Classification Problem Date Documented Da te Episodic/Chronic Abdominal pain (12 sources) Epigastric pain; Translations: [Epigastric pain] 07-05-2017 Episodic Anxiety disorders (12 sources) Anxiety; Translations: [Anxiety disorder, unspecified] 07-05-2017 Chronic Essential hypertension (12 sources) Hypertensive disorder; Translations: [Essential (primary) hypertension] 07-05-2017 Chronic Fluid and electrolyte disorders (12 sources) Hypokalemia; Translations: [Hypokalemia] 07-05-2017 Episodic Mood disorders (12 sources) Depressive disorder; Translations: [Depression] 07-05-2017 Chronic Noninfectious gastroenteritis (20 sources) Colitis; Translations: [Noninfective gastroenteritis and colitis, unspecified] 01-05-2020 Episodic Osteoarthritis (14 sources) Localized, primary osteoarthritis; Translations: [Osteoarthritis of right knee joint] Onset: 10-18-2016 10-31-2016 Chronic Other connective tissue disease (12 sources) Pes anserinus bursitis of right knee; Translations: [Other bursitis of knee, right knee] 07-20-2020 Episodic Other gastrointestinal disorders (12 sources) Constipation; Translations: [Constipation, unspecified] 01-08-2020 Episodic Other nutritional; endocrine; and metabolic disorders (12 sources) Obese class I; Translations: [Obesity, unspecified] 07-05-2017 Chronic Pneumonia (except that caused by tuberculosis or sexually transmitted disease) (12 sources) Pneumonia; Translations: [Pneumonia, unspecified organism] 07-05-2017 Episodic Thyroid disorders (14 sources) Hypothyroidism; Translations: [Hypothyroidism, unspecified] Onset: 07-30-2024 07-05-2017 Chronic Unclassified (1 source) No current problems or disability 10-17-2016 Past or Other Problems Problem Classification Problem Date Documented Da te Episodic/Chronic Heart valve disorders (1 source) Cardiac murmur, unspecified; Translations: [Cardiac murmur, unspecified] Onset: 01-15-2024 Episodic Other connective tissue disease (1 source) Pain in left leg; Translations: [Pain in left leg] Onset: 06-12-2024 Episodic Other non-traumatic joint disorders (2 sources) Knee pain; Translations: [Pain in right knee] Onset: 10-18-2016 10-18-2016 Episodic Urinary tract infections (1 source) Urinary tract infection, site not specified; Translations: [Urinary tract infection, site not specified] Onset: 11-04-2023 Episodic Results Test Name Value Interpretation Reference Range Facility T4 Free Directon 09-14-2024 T4 FREE DIRECT 1.90 ng/dL High 0.76-1.46 [facility] Comment on above: Performed By: #### L 506.0400, L501.9520 #### [facility] [address] [place], [place], [address] T4 freeOrdered By: Eze Gonzáles on 09-14-2024 Free T4 [Mass/Vol] 1.90 ng/dL High 0.76-1.46 [facility] TSH DL <= 0.005 mIU/L QnOrde red By: Cody Gonzáles on 09-14-2024 TSH Qn 0.039 uIU/mL Low 0.300-4.200 [facility] Thyroid Stim Hormone (TSH)on 09-14-2024 TSH 0.039 uIU/mL Low 0.300-4.200 [facility] Comment on above: Performed By: #### L 506.0400, L501.9520 #### [facility] [address] [place], [place], [address] Anion gap in Serum or Plasma Ordered By: Cody Gonzáles on 07-29-2024 Anion gap [Moles/Vol] 13 mmol/L 5-15 [facility] BUN/creatinine ratioOrdered By: Cody Gonzáles on 07-29-2024 Urea nitrogen/Creatinine [Mass ratio] 18.7 mg/mg 10-20 [facility] Bilirubin, totalOrdered By: Cody Gonzáles on 07-29-2024 Bilirubin [Mass/Vol] 0.33 mg/dL Normal 0.00-1.30 [facility] Comment on above: Order Comment: Order Date: 04/29/24 Order Info: [id number] - CMP Order Info: [id number] - LIPID Order Info: [id number] - TSH Order Info: [id number] - FE Order Info: [id number] - CAT Order Info: [id number] - T4F Performed By: #### L 500.4050, L501.9520, L503.6550, L100.0500, L503.6150, L500.4100, L506.0400 #### [facility] [address] [place], [address] CBC-Complete Blood Cnt No Di ffon 07-29-2024 Erythrocyte distribution width (RBC) [Ratio] 14.0 % Normal 11.6-14.6 [facility] Comment on above: Order Comment: Order Date: 04/29/24 Order Info: [id number] - CBC Performed By: #### L 500.4050, L501.9520, L503.6550, L100.0500, L503.6150, L500.4100, L506.0400 #### [facility] [address] [place], [place], [id number] Hematocrit (Bld) [Volume fraction] 36.8 % Low 37-47 [facility] Comment on above: Order Comment: Order Date: 04/29/24 Order Info: [id number] - CBC Performed By: #### L 500.4050, L501.9520, L503.6550, L100.0500, L503.6150, L500.4100, L506.0400 #### [facility] [address] [place], [place], [address] Hemoglobin (Bld) [Mass/Vol] 12.1 g/dL Normal 12.0-15.0 [facility] Comment on above: Order Comment: Order Date: 04/29/24 Order Info: [id number] - CBC Performed By: #### L 500.4050, L501.9520, L503.6550, L100.0500, L503.6150, L500.4100, L506.0400 #### [facility] [address] [place], [address] MCH (RBC) [Entitic mass] 29.3 pg Normal 27.0-32.0 [facility] Comment on above: Order Comment: Order Date: 04/29/24 Order Info: [id number] - CBC Performed By: #### L 500.4050, L501.9520, L503.6550, L100.0500, L503.6150, L500.4100, L506.0400 #### [facility] [address] [place], [address] MCHC (RBC) [Mass/Vol] 32.9 g/dL Normal 32-36 [facility] Comment on above: Order Comment: Order Date: 04/29/24 Order Info: [id number] - CBC Performed By: #### L 500.4050, L501.9520, L503.6550, L100.0500, L503.6150, L500.4100, L506.0400 #### [facility] [address] [place], [address] MCV (RBC) [Entitic vol] 89.1 fL Normal 81-99 [facility] Comment on above: Order Comment: Order Date: 04/29/24 Order Info: [id number] - CBC Performed By: #### L 500.4050, L501.9520, L503.6550, L100.0500, L503.6150, L500.4100, L506.0400 #### [facility] [address] [place], [address] Platelet mean volume (Bld) [Entitic vol] 9.3 fL Normal 6.2-12.0 [facility] Comment on above: Order Comment: Order Date: 04/29/24 Order Info: [id number] - CBC Performed By: #### L 500.4050, L501.9520, L503.6550, L100.0500, L503.6150, L500.4100, L506.0400 #### [facility] [address] [place], [address] Platelets (Bld) [#/Vol] 347 10*3/uL Normal 150-450 [facility] Comment on above: Order Comment: Order Date: 04/29/24 Order Info: [id number] - CBC Performed By: #### L 500.4050, L501.9520, L503.6550, L100.0500, L503.6150, L500.4100, L506.0400 #### [facility] [address] [place], [address] RBC (Bld) [#/Vol] 4.13 10*6/uL Low 4.2-5.4 [facility] Comment on above: Order Comment: Order Date: 04/29/24 Order Info: [id number] - CBC Performed By: #### L 500.4050, L501.9520, L503.6550, L100.0500, L503.6150, L500.4100, L506.0400 #### [facility] [address] [place], [address] RDW SD 45.5 fl High 35.1-43.9 [facility] Comment on above: Order Comment: Order Date: 04/29/24 Order Info: [id number] - CBC Performed By: #### L 500.4050, L501.9520, L503.6550, L100.0500, L503.6150, L500.4100, L506.0400 #### [facility] [address] [place], [address] WBC (Bld) [#/Vol] 6.5 10*3/uL Normal 4.4-11.0 [facility] Comment on above: Order Comment: Order Date: 04/29/24 Order Info: [id number] - CBC Performed By: #### L 500.4050, L501.9520, L503.6550, L100.0500, L503.6150, L500.4100, L506.0400 #### [facility] [address] [place], [place], [id number] Calculated very low density lipoprotein (VLDL) cholesterol measurementOrdered By: Cody Gonzáles on 07-29-2024 Calculated very low density lipoprotein (VLDL) cholesterol measurement 17 mg/dL 5-40 [facility] Carbon dioxide, total [Moles /volume] in Central venous bloodOrdered By: Cody Gonzáles on 07-29-2024 CO2 [Moles/Vol] 23.4 mmol/L Normal 21.0-32.0 [facility] Comment on above: Order Comment: Order Date: 04/29/24 Order Info: [id number] - CMP Order Info: [id number] - LIPID Order Info: 3 - TSH Order Info: [id number] - FE Order Info: [id number] - CAT Order Info: 7 - T4F Performed By: #### L 500.4050, L501.9520, L503.6550, L100.0500, L503.6150, L500.4100, L506.0400 #### [facility] [address] [place], [address] Chloride assayOrdered By: Debra Gonzáles on 07-29-2024 Chloride [Moles/Vol] 101 mmol/L Normal 98-108 [facility] Comment on above: Order Comment: Order Date: 04/29/24 Order Info: [id number] - CMP Order Info: [id number] - LIPID Order Info: [id number] - TSH Order Info: 2497-05 - FE Order Info: [id number] - CAT Order Info: 4-7 - T4F Performed By: #### L 500.4050, L501.9520, L503.6550, L100.0500, L503.6150, L500.4100, L506.0400 #### [facility] [address] [place], [place], [address] Comprehensive Metabolic Prof ilon 07-29-2024 ALK PHOS 86 U/L Normal 35-104 [facility] Comment on above: Order Comment: Order Date: 04/29/24 Order Info: [id number] - CMP Order Info: [id number] - LIPID Order Info: [id number] - TSH Order Info: 2494 - FE Order Info: 227-4 - CAT Order Info: 3024-7 - T4F Performed By: #### L 500.4050, L501.9520, L503.6550, L100.0500, L503.6150, L500.4100, L506.0400 #### [facility] [address] [place], [place], [id number] [phone] BUN/CRE 18.7 RATIO Normal 10-20 [facility] Comment on above: Order Comment: Order Date: 04/29/24 Order Info: 785- - CMP Order Info: - LIPID Order Info: 3 - TSH Order Info: [id number] - FE Order Info: [id number] - CAT Order Info: 3024-7 - T4F Performed By: #### L 500.4050, L501.9520, L503.6550, L100.0500, L503.6150, L500.4100, L506.0400 #### [facility] [address] [place], [place], [address] GAP 13 Normal 5-15 [facility] Comment on above: Order Comment: Order Date: 04/29/24 Order Info: 07-1 - CMP Order Info: [id number] - LIPID Order Info: [id number] - TSH Order Info: 2497-05 - FE Order Info: 2274 - CAT Order Info: 3024-7 - T4F Performed By: #### L 500.4050, L501.9520, L503.6550, L100.0500, L503.6150, L500.4100, L506.0400 #### [facility] [address] [place], [place], [address] Potassium [Moles/Vol] 3.8 mmol/L Normal 3.3-5.1 [facility] Comment on above: Order Comment: Order Date: 04/29/24 Order Info: 86-1 - CMP Order Info: [id number] - LIPID Order Info: [id number] - TSH Order Info: 2497-05 - FE Order Info: 2275-05 - CAT Order Info: 302-7 - T4F Performed By: #### L 500.4050, L501.9520, L503.6550, L100.0500, L503.6150, L500.4100, L506.0400 #### [facility] [address] [place], [address] T PROT 7.3 g/dL Normal 5.9-8.4 [facility] Comment on above: Order Comment: Order Date: 04/29/24 Order Info: [id number] - CMP Order Info: - LIPID Order Info: [id number] - TSH Order Info: 2497-05 - FE Order Info: [id number] - CAT Order Info: 3023-7 - T4F Performed By: #### L 500.4050, L501.9520, L503.6550, L100.0500, L503.6150, L500.4100, L506.0400 #### [facility] [address] [place], [place], [address] Comprehensive Metabolic Prof ilOrdered By: Cody Gonzáles on 07-29-2024 AST [Catalytic activity/Vol] 19 U/L Normal <=31 [facility] Comment on above: Order Comment: Order Date: 04/29/24 Order Info: 1 - CMP Order Info: [id number] - LIPID Order Info: 3 - TSH Order Info: 2497-05 - FE Order Info: 2274 - CAT Order Info: 3024-7 - T4F Performed By: #### L 500.4050, L501.9520, L503.6550, L100.0500, L503.6150, L500.4100, L506.0400 #### [facility] [address] [place], [place], [address] Erythrocyte distribution wid th ratioOrdered By: Cody Gonzáles on 07-29-2024 Erythrocyte distribution width (RBC) [Ratio] 14.0 % 11.6-14.6 [facility] Erythrocyte distribution wid th standard deviationOrdered By: Cody Gonzáles on 07-29-2024 Erythrocyte distribution width (RBC) [Ratio] 45.5 fl High 35.1-43.9 [facility] Glomerular filtration rate ( GFR) estimation/1.73 sq m using serum, plasma, or whole bOrdered By: Cody Gonzáles on 07-29-2024 GFR/1.73 sq M.predicted among non-blacks MDRD (S/P/Bld) [Vol rate/Area] 95 mL/min/{1.73_m2} Normal >60 [facility] Comment on above: mL/min/1.73m2 CKD-EP I Creatinine Equation (2020) Order Comment: Order Date: 04/29/24 Order Info: [id number] - CMP Order Info: [id number] - LIPID Order Info: [id number] - TSH Order Info: 2498-4 - FE Order Info: [id number] - CAT Order Info: 3024-7 - T4F Result Comment: mL/m in/1.73m2 CKD-EPI Creatinine Equation (2020) Performed By: #### L 500.4050, L501.9520, L503.6550, L100.0500, L503.6150, L500.4100, L506.0400 #### [facility] [address] [place], [address] Hematocrit Auto (Bld) [Volum e fraction]Ordered By: Cody Gonzáles on 07-29-2024 Hematocrit (Bld) [Volume fraction] 36.8 % Low 37-47 [facility] Hemoglobin measurementOrdere d By: Cody Gonzáles on 07-29-2024 Hemoglobin (Bld) [Mass/Vol] 12.1 g/dL 12.0-15.0 [facility] Ironon 07-29-2024 Iron [Mass/Vol] 66 ug/dL Normal 50-170 [facility] Comment on above: Order Comment: Order Date: 04/29/24 Order Info: 07- - CMP Order Info: - LIPID Order Info: 3 - TSH Order Info: [id number] - FE Order Info: [id number] - CAT Order Info: 7 - T4F Performed By: #### L 500.4050, L501.9520, L503.6550, L100.0500, L503.6150, L500.4100, L506.0400 #### [facility] [address] [place], [place], [id number] Iron measurement (mass/mass) Ordered By: Cody Gonzáles on 07-29-2024 Iron (Unsp spec) [Mass/Mass] 66 ug/dL 50-170 [facility] LDL calc ser/plasOrdered By: Cody Gonzáles on 07-29-2024 Cholesterol in LDL [Mass/Vol] 133 mg/dL [facility] Comment on above: Qewucqwfvi=008-629 m g/dL & Higher Vndq=680 mg/dL or greater Lipid Profileon 07-29-2024 CHOL:HDL 3.[address] [facility] Comment on above: Order Comment: Order Date: 04/29/24 Order Info: 0786- - CMP Order Info: - LIPID Order Info: 3 - TSH Order Info: 2497-05 - FE Order Info: [id number] - CAT Order Info: 3023-08 - T4F Performed By: #### L 500.4050, L501.9520, L503.6550, L100.0500, L503.6150, L500.4100, L506.0400 #### [facility] [address] [place], [place], [address] Cholesterol [Mass/Vol] 207 mg/dL High <=200 [facility] Comment on above: Order Comment: Order Date: 04/29/24 Order Info: 07- - CMP Order Info: - LIPID Order Info: 3 - TSH Order Info: [id number] - FE Order Info: [id number] CAT Order Info: 3023-08 T4 Result Comment: Chol esterol level, Desirable <200 mg/dL Borderline high cholesterol 200-239 mg/dL High cholesterol >=240 mg/dL Recommendations of the NCEP Adult Treatment Panel for the following risk-cutoff thresholds for the [place] population. Performed By: #### L 500.4050, L501.9520, L503.6550, L100.0500, L503.6150, L500.4100, L506.0400 #### [facility] [address] [place], [place], [id number] (658) Cholesterol in HDL [Mass/Vol] 57 mg/dL Normal [facility] Comment on above: Order Comment: Order Date: 04/29/24 Order Info: 0786-1 - CMP Order Info: [id number] - LIPID Order Info: 3 - TSH Order Info: 2497-05 Order Info: [id number] CAT Order Info: 3023-08 Result Comment: [place] on[place] Cholesterol Education Program (NCEP) guidelines: <40 mg/dL: Low HDL-cholesterol (major risk factor for CHD) >= 60 mg/dL: High HDL-cholesterol (negative risk factor for CHD) HDL-cholesterol is affected by a number of factors, e.g. smoking, exercise, hormones, sex and age. Performed By: #### L 500.4050, L501.9520, L503.6550, L100.0500, L503.6150, L500.4100, L506.0400 #### [facility] [address] [place], [place], [id number] Cholesterol in LDL [Mass/Vol] 133 mg/dL Normal [facility] Comment on above: Order Comment: Order Date: 04/29/24 Order Info: 0786-1 - CMP Order Info: [id number] - LIPID Order Info: 3 - TSH Order Info: 2497-05 - Order Info: 2275-05 - CAT Order Info: 3023-08 T4F Result Comment: Bord tvqcuj=478-886 mg/dL Higher Qhaq=646 mg/dL or greater Performed By: #### L 500.4050, L501.9520, L503.6550, L100.0500, L503.6150, L500.4100, L506.0400 #### [facility] [address] [place], [place], [phone] (109) Cholesterol in VLDL [Mass/Vol] 17 mg/dL Normal 5-40 [facility] Comment on above: Order Comment: Order Date: 04/29/24 Order Info: 0786- - CMP Order Info: [id number] - LIPID Order Info: 3 - TSH Order Info: 2497-05 - FE Order Info: 2275-05 - CAT Order Info: 3023-08 - T4F Performed By: #### L 500.4050, L501.9520, L503.6550, L100.0500, L503.6150, L500.4100, L506.0400 #### [facility] [address] [place], [address] Triglyceride [Mass/Vol] 86 mg/dL Normal [facility] Comment on above: Order Comment: Order Date: 04/29/24 Order Info: 0786 - CMP Order Info: [id number] - LIPID Order Info: 3 - TSH Order Info: 2497-05 - FE Order Info: 2275-05 - CAT Order Info: 7 - T4F Result Comment: The drugs N-Acetylcysteine and Metamizole may falsely depress this assay. Normal range: <150 mg/dL Borderline High: 150-199 mg/dL High: 200-499 mg/dL Very High: >500 mg/dL Performed By: #### L 500.4050, L501.9520, L503.6550, L100.0500, L503.6150, L500.4100, L506.0400 #### [facility] [address] [place], [place], [phone] (572) MCV (mean corpuscular volume ) determinationOrdered By: Cody Gonzáles on 07-29-2024 MCV (RBC) [Entitic vol] 89.1 fL 81-99 [facility] Mean corpuscular hemoglobin (MCH) determinationOrdered By: Cody Gonzáles on 07-29-2024 MCH (RBC) [Entitic mass] 29.3 pg 27.0-32.0 [facility] Mean corpuscular hemoglobin concentration (MCHC) determinationOrdered By: Cody Gonzáles on 07-29-2024 MCHC (RBC) [Mass/Vol] 32.9 g/dL 32-36 [facility] Mean platelet volume determi nationOrdered By: Cody Gonzáles on 07-29-2024 Platelet mean volume (Bld) [Entitic vol] 9.3 fL 6.2-12.0 [facility] Platelet countOrdered By: Debra Gonzáles on 07-29-2024 Platelets (Bld) [#/Vol] 347 10*3/uL 150-450 [facility] Potassium measurement (mass/ volume)Ordered By: Cody Gonzáles on 07-29-2024 Potassium (Unsp spec) [Mass/Vol] 3.8 mmol/L 3.3-5.1 [facility] RBC Auto (Bld) [#/Vol]Ordere d By: Cody Gonzáles on 07-29-2024 RBC (Bld) [#/Vol] 4.13 10*6/uL Low 4.2-5.4 [facility] Screening total cholesterol/ high density lipoprotein (HDL) cholesterol ratioOrdered By: Cody Gonzáles on 07-29-2024 Cholesterol.total/Azra sterol in HDL [Mass ratio] 3.64 {ratio} [facility] Serum creatinine measurement (mass/volume)Ordered By: Cody Gonzáles on 07-29-2024 Creatinine [Mass/Vol] 0.72 mg/dL Normal 0.70-1.20 [facility] Comment on above: Order Comment: Order Date: 04/29/24 Order Info: 0786-1 - CMP Order Info: [id number] - LIPID Order Info: 3016-3 - TSH Order Info: 2498-4 - FE Order Info: 2276-4 - CAT Order Info: 3024-7 - T4F Performed By: #### L 500.4050, L501.9520, L503.6550, L100.0500, L503.6150, L500.4100, L506.0400 #### [facility] [address] [place], [place], [id number] Serum globulin measurementOr dered By: Cody Gonzáles on 07-29-2024 Globulin (S) [Mass/Vol] 3.1 g/dL Normal 2.2-4.2 [facility] Comment on above: Order Comment: Order Date: 04/29/24 Order Info: 0786-1 - CMP Order Info: [id number] - LIPID Order Info: 3015-04 - TSH Order Info: 2497-05 - FE Order Info: 2275-05 - CAT Order Info: 3023-08 - T4F Performed By: #### L 500.4050, L501.9520, L503.6550, L100.0500, L503.6150, L500.4100, L506.0400 #### [facility] [place], [place], [address] Serum glucose measurement (m ass/volume)Ordered By: Cody Gonzáles on 07-29-2024 Glucose [Mass/Vol] 101 mg/dL High 70-99 [facility] Comment on above: Order Comment: Order Date: 04/29/24 Order Info: 0786-1 - CMP Order Info: [id number] - LIPID Order Info: 3015-04 - TSH Order Info: 2497-05 - FE Order Info: 2275-05 - CAT Order Info: 3023-08 - T4F Performed By: #### L 500.4050, L501.9520, L503.6550, L100.0500, L503.6150, L500.4100, L506.0400 #### [facility] [address] [facility] [place], [place], [id number] Serum or plasma alanine keita otransferase (ALT) measurementOrdered By: Cody Gonzáles on 07-29-2024 ALT [Catalytic activity/Vol] 14 U/L Normal <=34 [facility] Comment on above: Order Comment: Order Date: 04/29/24 Order Info: 785- - CMP Order Info: - LIPID Order Info: 3 - TSH Order Info: 2497-05 - FE Order Info: 2275-05 - CAT Order Info: 7 - T4F Performed By: #### L 500.4050, L501.9520, L503.6550, L100.0500, L503.6150, L500.4100, L506.0400 #### [facility] [address] [place], [place], [phone] Serum or plasma albumin joselyn urement (mass/volume)Ordered By: Cody Gonzáles on 07-29-2024 Albumin [Mass/Vol] 4.2 g/dL Normal 3.4-4.8 [facility] Comment on above: Order Comment: Order Date: 04/29/24 Order Info: 785-02 - CMP Order Info: - LIPID Order Info: 3015-04 - TSH Order Info: 2497-05 - FE Order Info: 2275-05 - CAT Order Info: 7 - T4F Performed By: #### L 500.4050, L501.9520, L503.6550, L100.0500, L503.6150, L500.4100, L506.0400 #### [facility] [address] [place], [place], [phone] (615) Serum or plasma albumin/glob ulin mass ratioOrdered By: Cody Gonzáles on 07-29-2024 Albumin/Globulin [Mass ratio] 1.4 {ratio} Normal 0.9-2.4 [facility] Comment on above: Order Comment: Order Date: 04/29/24 Order Info: 785-02 - CMP Order Info: - LIPID Order Info: 3 - TSH Order Info: 2497-05 - FE Order Info: 2275-05 - CAT Order Info: 7 - T4F Performed By: #### L 500.4050, L501.9520, L503.6550, L100.0500, L503.6150, L500.4100, L506.0400 #### [facility] [address] [place], [place], [address] Serum or plasma alkaline usha sphatase measurementOrdered By: Cody Gonzáles on 07-29-2024 ALP [Catalytic activity/Vol] 86 U/L 35-104 [facility] Serum or plasma calcium joselyn urement (mass/volume)Ordered By: Cody Gonzáles on 07-29-2024 Calcium [Mass/Vol] 9.8 mg/dL Normal 7.6-11.0 [facility] Comment on above: Order Comment: Order Date: 04/29/24 Order Info: 0786-1 - CMP Order Info: [id number] - LIPID Order Info: 3016-3 - TSH Order Info: 2498-4 - FE Order Info: 2276-4 - CAT Order Info: 3024-7 - T4F Performed By: #### L 500.4050, L501.9520, L503.6550, L100.0500, L503.6150, L500.4100, L506.0400 #### [facility] [address] [place], [place], [address] Serum or plasma cholesterol in HDL measurement (mass/volume)Ordered By: Cody Gonzáles on 07-29-2024 Cholesterol in HDL [Mass/Vol] 57 mg/dL >40 [facility] Comment on above: National Cholesterol Education Program (NCEP) guidelines:<40 mg/dL: Low HDL-cholesterol (major risk factor for CHD)>= 60 mg/dL: High HDL-cholesterol (negative risk factor for CHD)HDL-cholesterol is affected by a number of factors, e.g. smoking, exercise, hormones, sex and age. Serum or plasma cholesterol measurement (mass/volume)Ordered By: Cody Gonzáles on 07-29-2024 Cholesterol [Mass/Vol] 207 mg/dL High <201 [facility] Comment on above: Cholesterol level, D esirable <200 mg/dLBorderline high cholesterol 200-239 mg/dLHigh cholesterol >=240 mg/dLRecommendations of the NCEP Adult Treatment Panel for the following risk-cutoff thresholds for the [place] population. Serum or plasma ferritin williams surement (mass/volume)Ordered By: Cody Gonzáles on 07-29-2024 Ferritin [Mass/Vol] 113 ng/mL Normal 22-378 [facility] Comment on above: Order Comment: Order Date: 04/29/24 Order Info: 0786-1 - CMP Order Info: 85720-7 - LIPID Order Info: 3 - TSH Order Info: 4 - FE Order Info: 4 - CAT Order Info: 3024-7 - T4F Performed By: #### L 500.4050, L501.9520, L503.6550, L100.0500, L503.6150, L500.4100, L506.0400 #### [facility] [address] [place], [place], [phone] Serum or plasma urea nitroge n measurement (mass/volume)Ordered By: Cody Gonzáles on 07-29-2024 Urea nitrogen [Mass/Vol] 14 mg/dL Normal 4-19 [facility] Comment on above: Order Comment: Order Date: 04/29/24 Order Info: 0786-1 - CMP Order Info: 72346-1 - LIPID Order Info: 3 - TSH Order Info: 2497-05 - FE Order Info: 2275-05 - CAT Order Info: 3023-7 - T4F Performed By: #### L 500.4050, L501.9520, L503.6550, L100.0500, L503.6150, L500.4100, L506.0400 #### [facility] [address] [place], [place], [phone] Sodium levelOrdered By: Blanca Gonzáles on 07-29-2024 Sodium [Moles/Vol] 137 mmol/L Normal 133-145 [facility] Comment on above: Order Comment: Order Date: 04/29/24 Order Info: 0786-1 - CMP Order Info: [id number] - LIPID Order Info: 3 - TSH Order Info: 4 - FE Order Info: 2275-05 CAT Order Info: 3023-08 - T4F Performed By: #### L 500.4050, L501.9520, L503.6550, L100.0500, L503.6150, L500.4100, L506.0400 #### [facility] [address] [place], [place], [phone] ([phone] T4 Free Directon 07-29-2024 T4 FREE DIRECT 2.10 ng/dL High 0.76-1.46 [facility] Comment on above: Order Comment: Order Date: 04/29/24 Order Info: 0786 - CMP Order Info: 13751-7 - LIPID Order Info: 3 - TSH Order Info: 2497-05 FE Order Info: 2275-05 CAT Order Info: 3023-08 - T4F Performed By: #### L 500.4050, L501.9520, L503.6550, L100.0500, L503.6150, L500.4100, L506.0400 #### [facility] [address] [place], [place], [address] T4 freeOrdered By: Eze Gonzáles on 07-29-2024 Free T4 [Mass/Vol] 2.10 ng/dL High 0.76-1.46 [facility] TSH DL <= 0.005 mIU/L QnOrde red By: Cody Gonzáles on 07-29-2024 TSH Qn 0.035 uIU/mL Low 0.300-4.200 [facility] Thyroid Stim Hormone (TSH)on 07-29-2024 TSH 0.035 uIU/mL Low 0.300-4.200 [facility] Comment on above: Order Comment: Order Date: 04/29/24 Order Info: 0786- - CMP Order Info: [id number] - LIPID Order Info: 3 - TSH Order Info: 2497-05 FE Order Info: 2275-05 CAT Order Info: 3023-08 - T4F Performed By: #### L 500.4050, L501.9520, L503.6550, L100.0500, L503.6150, L500.4100, L506.0400 #### [facility] [address] [place], [place], [address] Total proteinOrdered By: Anh Gonzáles on 07-29-2024 Protein [Mass/Vol] 7.3 g/dL 5.9-8.4 [facility] Triglycerides measurementOrd ered By: Cody Gonzáles on 07-29-2024 Triglyceride [Mass/Vol] 86 mg/dL <199 [facility] Comment on above: The drugs N-Acetylcy steine and Metamizole may falsely depress this assay. Normal range: <150 mg/dLBorderline High: 150-199 mg/dLHigh: 200-499 mg/dLVery High: >500 mg/dL White blood cell (WBC) count Ordered By: Cody Gonzáles on 07-29-2024 WBC (Bld) [#/Vol] 6.5 10*3/uL 4.4-11.0 [facility] Tibia Fibula 2 Viewson 06-11 Tibia Fibula 2 Views [facility] [address] [place], [place] [address] Tibia Fibula 2 Views MR#: [id number] Acct: [id number] Name: CHAD PANTOJA Rep #: [id number] : 1965 F 59 From: Rodri Eagle MD PCP: Dr. Cody Gonzáles MD Status: REG CLI Study: Tibia Fibula 2 Views Date of Exam: 06/11/24 Exam# [id number] Ordering Dr: Cody Gonzáles PROCEDURE: TIBIA FIBULA 2 VIEWS 06/11/2024 REASON FOR EXAM: REMOTE FALL, MID FIBULA PAIN TECHNIQUE: 2 views of the left lower leg COMPARISON: None FINDINGS: Bones: The tibia and fibula appear intact. Joints: Proximal and distal joint spaces are maintained. Soft tissues: Soft tissue swelling. No gas or unexpected radiopaque foreign body. RAD/Tibia Fibula 2 Views IMPRESSION: No fracture or dislocation. Reading Location: [facility] CC: Dr. Cody Gonzáles MD Braider Tender: Signed Normal [facility] Echo Complete W/ Contraston 12-25-2023 Echo Complete W/ Contrast [facility] [address] [place] [address] Echo Complete W/ Contrast 12/25/23 1453 MR#: [id number] Acct: [id number] Name: CHAD PANTOJA Rep #: [id number] : 1965 58 From: Pankaj Garcia MD Attending Dr: Dr. Cody Gonzáles MD Status: REG CLI Ordering Dr: Cody Gonzáles MD Date: 12/25/23 Location: [facility] Sex: F C Admitted: Reason For Study: Murmur Procedure This was a 2D Doppler, Color Flow transthoracic echocardiogram. The study was technically difficult. Contrast injection was performed. Exam performed in department. Left Ventricle Normal LV size. Left ventricular systolic function is normal. The left ventricular ejection fraction is 65 %. No regional wall motion abnormalities noted. Right Ventricle Normal RV size. Normal systolic function. Atria Normal left atrium. Normal right atrium. Mitral Valve Normal mitral valve. Mild (1+) mitral valve insufficiency. Tricuspid Valve Normal tricuspid valve. Mild tricuspid valve insufficiency. Pulmonary artery systolic pressure is 34 mmHg. Aortic Valve Trisinus/trileaflet aortic valve. Mild focal aortic valve calcification. Mild (1+) aortic valve insufficiency. Pulmonic Valve Normal pulmonic valve. Great Vessels Normal aortic root. The pulmonary artery is normal size. Inferior vena cava collapse with respiration. Pericardium/Pleural No pericardial effusion. Medication 22 gauge I.V. with prn adaptor inserted into right arm. Diluted definity 2ml given slow IV push to enhance endocardial definition. MMode/2D Measurements Calculations LVIDd: 5.2 cm IVSd: 0.87 cm Ao root diam: 3.3 cm LVIDs: 3.4 cm LVPWd: 0.83 cm RVDd: 3.1 cm FS: 34.2 % _ LAV(MOD-bp): 67.0 ml LVAd ap4: 36.5 cm2 SV(MOD-sp4): 86.9 ml LAV(MOD-bp) Indexed: 34.5 ml/m2 LVLd ap4: 8.6 cm SI(MOD-sp4): 44.7 ml/m2 LAV(MOD-sp2): 56.2 ml EDV(MOD-sp4): 129.5 ml LAV(MOD-sp4): 65.4 ml EDV(sp4-el): 132.3 ml LVAs ap4: 17.8 cm2 LVLs ap4: 6.6 cm ESV(MOD-sp4): 42.6 ml ESV(sp4-el): 40.9 ml EF(MOD-sp4): 67.1 % EF(sp4-el): 69.1 % _ SV(sp4-el): 91.4 ml LA A4 area: 22.1 cm2 LA dimension(2D): 3.4 cm _ RA A4 area: 13.3 cm2 TAPSE: 2.1 cm Time Measurements MV dec time: 0.21 sec Doppler Measurements Calculations MV E max elsa: 90.2 cm/sec Lat Peak E' Elsa: 10.6 cm/sec Med Peak E' Elsa: 8.4 cm/sec MV A max elsa: 84.1 cm/sec E/E' lat: 8.5 E/E' med: 10.7 MV E/A: 1.1 _ MV V2 max: 111.0 cm/sec MV P1/2t max elsa: 111.7 cm/sec Ao V2 max: 174.8 cm/sec MV max P.9 mmHg MV P1/2t: 83.3 msec Ao max P.2 mmHg MV V2 mean: 54.1 cm/sec MV dec slope: 392.9 cm/sec2 MV mean P.4 mmHg MVA(P1/2t): 2.6 cm2 MV V2 VTI: 34.8 cm _ LV V1 max: 138.4 cm/sec MR max elsa: 509.6 cm/sec PA V2 max: 100.1 cm/sec LV V1 max P.7 mmHg MR max P.9 mmHg AI Accel Time: 0.58 sec _ TR max elsa: 281.6 cm/sec TR max P.7 mmHg ECHO/Echo Complete W/ Contrast Interpretation Summary Normal LV size. Left ventricular systolic function is normal. The left ventricular ejection fraction is 65 %. Contrast injection was performed. Ordering Physician: Cody Gonzáles Referring Physician: Cody Gonzáles Performed By: Juan Danielle RCS 12/25/231733 Date Pankaj Garcia MD CC: Dr. Cody Gonzáles MD Date Dictated: 12/25/231452 Date Transcribed: 12/25/231733 Braider Tender: Signed Normal [facility] Kidney and Bladderon 024 Kidney and Bladder [facility] Imaging Services [address] [place] [id number] Kidney and Bladder MR#: [id number] Acct: [id number] Name: CHAD PANTOJA Rep #: [id number] : 1965 F 58 From: Rudy Jorgensen MD PCP: Dr. Cody Gonzáles MD Status: REG [facility] Study: Kidney and Bladder Date of Exam: 10/14/23 Exam# [id number] Ordering Dr: Herlinda Garcia MD [id number] STUDY: RENAL ULTRASOUND - COMPLETE REASON FOR EXAM: Female, 58 years old. UTI TECHNIQUE: Ultrasound evaluation of the kidneys was performed with real-time and static acosta-scale imaging. COMPARISON: None. FINDINGS: RIGHT KIDNEY: Normal location of the right kidney, which is normal in size. The right kidney measures 9.6 cm. There is a normal cortex of the right kidney. The renal cortex measures 0.8 cm. There is no right renal mass or cyst. There are no right renal calculi. There is no right hydronephrosis. DISTAL RIGHT URETER: There is non-visualization of the distal right ureter. There is no demonstrated right ureterovesical junction calculus. There is a visualized right ureteral jet. LEFT KIDNEY: Normal location of the left kidney, which is normal in size. The left kidney measures 10.7 cm. There is a normal cortex of the left kidney. The renal cortex measures 0.9 cm. There is no left renal mass or cyst. There are no left renal calculi. There is no left hydronephrosis. DISTAL LEFT URETER: There is non-visualization of the distal left ureter. There is no demonstrated left ureterovesical junction calculus. There is a visualized left ureteral jet. BLADDER: The distended urinary bladder has a volume of 117 ml. The empty urinary bladder has a volume of 8 ml. There is a normal wall thickness of the distended urinary bladder. There is no demonstrated mass within the urinary bladder. There are no demonstrated bladder calculi. US/Kidney and Bladder IMPRESSION: Normal ultrasound of the kidneys and urinary bladder. Electronically Signed: Rudy Jorgensen MD at 12:46 EDT , CC: Dr. Cody Gonzáles MD; Dr. Herlinda Garcia MD Braider Tender: Signed Normal [facility] CBC + DIFFon 03-17-2023 Baso # 0.00 x10EE3/UL Normal 0.00 - 0.10 [facility] Comment on above: Performed By: #### 2 [address] #### [place] [address] Basophils/100 WBC (Bld) 0.3 % Normal 0.0 - 2.0 J oel [facility] Comment on above: Performed By: #### 2 39958 #### [place] [address] CBC + DIFF Normal [facility] Comment on above: Result Comment: CBC- COMPLETE BLOOD COUNT Performed By: #### 2 49122 #### [facility],[address] [place] [address] EO # 0.00 x10EE3/UL Normal 0.00 - 0.50 [facility] Comment on above: Performed By: #### 2 85256 #### [facility],[address] [place] [address] Eosinophils/100 WBC (Bld) 0.1 % Normal 0.0 - 7.0 [facility] Comment on above: Performed By: #### 2 62134 #### [facility],[address] [place] [address] Erythrocyte distribution width (RBC) [Ratio] 13.6 % Normal 12.0 - 15.6 [facility] Comment on above: Performed By: #### 2 32369 #### [facility],[address] [place] [address] Hematocrit (Bld) [Volume fraction] 33.6 % Low 34.0 - 46.0 [facility] Comment on above: Performed By: #### 2 41168 #### [facility],[address] [place] [address] Hemoglobin (Bld) [Mass/Vol] 10.9 g/dL Low 12.0 - 16.0 [facility] Comment on above: Performed By: #### 2 74134 #### [facility],[address] [place] [address] Lymph # 1.30 x10EE3/UL Normal 0.80 - 2.80 [facility] Comment on above: Performed By: #### 2 13632 #### [facility],[address] [place], [place] [address] Lymphocytes/100 WBC (Bld) 10.1 % Low 20.0 - 45.0 [facility] Comment on above: Performed By: #### 2 36600 #### [facility],[address] [place] [address] MANUAL DIFF N/A Normal [facility] Comment on above: Performed By: #### 2 49512 #### [facility],[address] [place] [address] MCH (RBC) [Entitic mass] 29 pg Normal 27 - 33 [facility] Comment on above: Performed By: #### 2 18882 #### [facility],[address] [place] [address] MCHC 33 X10 3 Normal 32 - 36 [facility] Comment on above: Performed By: #### 2 81737 #### [facility],[address] [place] [address] MCV (RBC) [Entitic vol] 90 fL Normal 80 - 99 [facility] Comment on above: Performed By: #### 2 25338 #### [facility],[address] [place] [address] Morrill # 1.30 x10EE3/UL High 0.20 - 1.00 [facility] Comment on above: Performed By: #### 2 19148 #### [facility],[address] [place] [address] MONOS % 9.6 % Normal 0.0 - 10.0 [facility] Comment on above: Performed By: #### 2 43026 #### [facility],[address] [place] [address] Morphology Madi (Bld) [Interp] N/A Normal [facility] Comment on above: Result Comment: {CD] Performed By: #### 2 76921 #### [facility],[address] [place] [address] Neut # 10.50 x10EE3/UL High 1.50 - 7.10 [facility] Comment on above: Performed By: #### 2 58388 #### [facility],[address] [place] [address] Neutrophils/100 WBC (Bld) 79.9 % High 46.0 - 76.0 [facility] Comment on above: Performed By: #### 2 53671 #### [facility],[address] [place] [address] PLATELET 218 x10EE3/UL Normal 150 - 450 [facility] Comment on above: Performed By: #### 2 03772 #### [facility],[address] [place] [address] Platelet mean volume (Bld) [Entitic vol] 7.6 fL Normal 6.6 - 10.5 [facility] Comment on above: Result Comment: AUTO MATED DIFFERENTIAL Performed By: #### 2 93804 #### [facility],[address] [place] [address] RBC 3.72 x 10EE6/UL Low 4.10 - 5.30 [facility] Comment on above: Performed By: #### 2 70958 #### [facility],[address] [place] [address] WBC 13.1 x 10EE3/UL High 4.5 - 10.8 [facility] Comment on above: Performed By: #### 2 13697 #### [facility],[address] [place] [address] CMP with eGFRon 03-17-2023 AGE 58 years Normal [facility] Comment on above: Performed By: #### 2 90846 #### [facility],[address] [place] [address] Albumin [Mass/Vol] 2.6 g/dL Low 3.4 - 5.0 [facility] Comment on above: Performed By: #### 2 66670 #### [facility],[address] [place] [address] Albumin/Globulin [Mass ratio] 0.6 {ratio} Low 0.9 - 1.6 [facility] Comment on above: Performed By: #### 2 29369 #### [facility],[address] [place] [address] ALK PHOS 62 U/L Normal 46 - 116 [facility] Comment on above: Performed By: #### 2 20669 #### [facility],[address] [place] [address] ALT [Catalytic activity/Vol] 11 U/L Low 14 - 59 [facility] Comment on above: Performed By: #### 2 59202 #### [facility],[address] [place] [address] Anion gap [Moles/Vol] 16 mmol/L Normal 10 - 20 [facility] Comment on above: Performed By: #### 2 07133 #### [facility],[address] [place] [address] AST [Catalytic activity/Vol] 12 U/L Low 13 - 39 [facility] Comment on above: Performed By: #### 2 56495 #### [facility],[address] [place] [address] 11667 B/C RATIO 12 ratio Normal 0 - 30 [facility] Comment on above: Performed By: #### 2 68064 #### [facility],[address] [place] [address] 61910 Bilirubin [Mass/Vol] 0.4 mg/dL Normal 0.2 - 1.0 [facility] Comment on above: Performed By: #### 2 02864 #### [facility],[address] [place] [address] 38709 Calcium [Mass/Vol] 8.6 mg/dL Normal 8.5 - 10.1 [facility] Comment on above: Performed By: #### 2 42220 #### [facility],[address] [place] [address] 70985 Chloride [Moles/Vol] 107 mmol/L Normal 98 - 107 [facility] Comment on above: Performed By: #### 2 61690 #### [facility],[address] [place] [address] 71091 CMP with eGFR Normal [facility] Comment on above: Result Comment: COMP REHENSIVE METABOLIC PANEL Performed By: #### 2 46273 #### [facility],[address] [place] [address] 65966 CO2 [Moles/Vol] 24.2 mmol/L Normal 21.0 - 32.0 [facility] Comment on above: Performed By: #### 2 82398 #### [facility],[address] [place] [address] 80720 Creatinine [Mass/Vol] 0.77 mg/dL Normal 0.55 - 1.02 [facility] Comment on above: Performed By: #### 2 26342 #### [facility],[address] [place] [address] 30485 GFR/1.73 sq M.predicted among non-blacks MDRD (S/P/Bld) [Vol rate/Area] mL/min/{1.73_m2} Normal 60 - 999 [facility] Comment on above: Performed By: #### 2 53883 #### [facility],[address] [place] [address] 40593 Result Comment: ACCO RDING TO THE NATIONAL KIDNEY DISEASE EDUCATION PROGRAM(NKDE), A NORMAL eGFR IS A VALUE GREATER THAN OR EQUAL TO 60 ML/MIN/1.73 SQ METERS. CHRONIC KIDNEY DISEASE: <60mL/MIN/1.73 SQ METERS KIDNEY FAILURE: <15mL/MIN/1.73 SQ METERS THIS TEST SHOULD ONLY BE USED FOR PATIENTS 18 YEARS OF AGE AND OLDER. Globulin (S) [Mass/Vol] 4.2 g/dL High 1.5 - 3.8 [facility] Comment on above: Performed By: #### 2 51761 #### [facility],[address] [place] [address] 70433 Glucose [Mass/Vol] 95 mg/dL Normal 74 - 106 [facility] Comment on above: Performed By: #### 2 59567 #### [facility],[address] [place] [address] 57002 Potassium [Moles/Vol] 3.8 mmol/L Normal 3.5 - 5.1 [facility] Comment on above: Performed By: #### 2 24545 #### [facility],[address] [place] [address] 36456 Protein [Mass/Vol] 6.8 g/dL Normal 6.4 - 8.2 [facility] Comment on above: Performed By: #### 2 35215 #### [facility],[address] [place] [address] 47179 Sodium [Moles/Vol] 143 mmol/L Normal 136 - 145 [facility] Comment on above: Performed By: #### 2 91127 #### [facility],[address] [place] [address] 99226 Urea nitrogen [Mass/Vol] 9 mg/dL Normal 7 - 18 [facility] Comment on above: Performed By: #### 2 13636 #### [facility],[address] [place] [address] 55359 Bacteria Ur Culton 4 Bacteria identified Cx Nom (U) ORGANISM ID: 1 >=100,000 CFU/ml Escherichia coli ORGANISM ID: 1 (ESCHERICHIA COLI) ANTIBIOTIC INTERPRETATION CHACE STATUS REFERENCE RANGE Ampicillin S <=2 F Susceptible <=8 , Intermediate >8 , Resistant >16 Cefazolin S <=4 F Susceptible 0-16 , Intermediate <0 or >16 , Resistant >16 For uncomplicated urinary tract infections, cefazolin results can be used to predict susceptibility or resistance to cephalexin. Ceftriaxone S <=1 F Susceptible <=1 , Intermediate >1 , Resistant >=4 Cefepime S <=1 F Susceptible <=2 , Susceptible-Dose Dependent >2 , Resistant >=16 Ertapenem S <=0.5 F Susceptible <=0.5 , Intermediate >.5 , Resistant >1 Meropenem S <=0.25 F Susceptible <=1 , Intermediate >1 , Resistant >2 Ampicillin/Sulbact S <=2 F Susceptible <=8 , Intermediate >8 , Resistant >16 Piperacillin/Tazobac S <=4 F Susceptible <=16 , Intermediate >16 , Resistant >64 Gentamicin S <=1 F Susceptible <=4 , Intermediate >4 , Resistant >8 Tobramycin S <=1 F Susceptible <=4 , Intermediate >4 , Resistant >8 Trimeth sulfameth S <=20 F Susceptible <=40 , Resistant >40 Ciprofloxacin S <=0.25 F Susceptible <0.5 , Intermediate >=.5 , Resistant >=1 Nitrofurantoin S <=16 F Susceptible <=32 , Intermediate >32 , Resistant >64 Abnormal [place] Comment on above: Performed By: #### 6 30-4 #### [facility] CLIA [id number] [address] [place] [address] [place] CBC + DIFFon 03-16-2023 Baso # 0.00 x10EE3/UL Normal 0.00 - 0.10 [facility] Comment on above: Performed By: #### 2 43910 #### [facility],[address] [place], [place] [id number] Basophils/100 WBC (Bld) 0.2 % Normal 0.0 - 2.0 [facility] Comment on above: Performed By: #### 2 36349 #### [facility],[address] [place] [address] 62534 CBC + DIFF Normal [facility] Comment on above: Result Comment: CBC- COMPLETE BLOOD COUNT Performed By: #### 2 01549 #### [facility],[address] [place] [address] 26417 EO # 0.00 x10EE3/UL Normal 0.00 - 0.50 [facility] Comment on above: Performed By: #### 2 85072 #### [facility],[address] [place] [address] 35348 Eosinophils/100 WBC (Bld) 0.0 % Normal 0.0 - 7.0 [facility] Comment on above: Performed By: #### 2 28660 #### [facility],[address] [place] [address] Erythrocyte distribution width (RBC) [Ratio] 13.6 % Normal 12.0 - 15.6 [facility] Comment on above: Performed By: #### 2 22877 #### [facility],[address] [place], [place] [address] Hematocrit (Bld) [Volume fraction] 36.7 % Normal 34.0 - 46.0 [facility] Comment on above: Performed By: #### 2 10303 #### [facility],[address] [place] [address] 79537 Hemoglobin (Bld) [Mass/Vol] 12.0 g/dL Normal 12.0 - 16.0 [facility] Comment on above: Performed By: #### 2 27901 #### [facility],[address] [place] [address] 18142 Lymph # 0.90 x10EE3/UL Normal 0.80 - 2.80 [facility] Comment on above: Performed By: #### 2 07347 #### [facility],[address] [place] [address] 19092 Lymphocytes/100 WBC (Bld) 5.4 % Low 20.0 - 45.0 [facility] Comment on above: Performed By: #### 2 61856 #### [facility],[address] [place] [address] MANUAL DIFF N/A Normal [facility] Comment on above: Performed By: #### 2 58904 #### [facility],[address] [place] [address] MCH (RBC) [Entitic mass] 29 pg Normal 27 - 33 [facility] Comment on above: Performed By: #### 2 01947 #### [facility],[address] [place] [address] MCHC 33 X10 3 Normal 32 - 36 [facility] Comment on above: Performed By: #### 2 97030 #### [facility],[address] [place] [address] MCV (RBC) [Entitic vol] 89 fL Normal 80 - 99 [facility] Comment on above: Performed By: #### 2 76352 #### [facility],[address] [place] [address] Morrill # 1.30 x10EE3/UL High 0.20 - 1.00 [facility] Comment on above: Performed By: #### 2 48826 #### [facility],[address] [place] [address] MONOS % 7.7 % Normal 0.0 - 10.0 [facility] Comment on above: Performed By: #### 2 16766 #### [facility],[address] [place] [address] Morphology Madi (Bld) [Interp] N/A Normal [facility] Comment on above: Result Comment: {CD] Performed By: #### 2 68258 #### [facility],[address] [place] [address] Neut # 14.70 x10EE3/UL High 1.50 - 7.10 [facility] Comment on above: Performed By: #### 2 78847 #### [facility],[address] [place] [address] 04656 Neutrophils/100 WBC (Bld) 86.7 % High 46.0 - 76.0 [facility] Comment on above: Performed By: #### 2 17838 #### [facility],[address] [place] [address] 07903 PLATELET 257 x10EE3/UL Normal 150 - 450 [facility] Comment on above: Performed By: #### 2 05171 #### [facility],[address] [place] [address] 31552 Platelet mean volume (Bld) [Entitic vol] 6.9 fL Normal 6.6 - 10.5 [facility] Comment on above: Result Comment: AUTO MATED DIFFERENTIAL Performed By: #### 2 30865 #### [facility],[address] [place] [address] 94631 RBC 4.10 x 10EE6/UL Normal 4.10 - 5.30 [facility] Comment on above: Performed By: #### 2 54755 #### [facility],[address] [place] [address] 64258 WBC 17.0 x 10EE3/UL High 4.5 - 10.8 [facility] Comment on above: Performed By: #### 2 43209 #### [facility],[address] [place] [address] 70188 CHEST 1 VIEWon 03-16-2023 CHEST 1 VIEW [place] [address] Patient: CHAD PANTOJA Phone#: : 1965 Age: 58 Gender: F Pt. Type: ER Account: [id number] Location: [facility] Ordering: BETZAIDA CLARK Exam Date: 03/16/2023/16:38 Family Phys: ISAIAS DANIEL Charge Code: [id number] Physician: Bamberg Order #: [id number] Dose#: PROCEDURE: X-RAY CHEST 1 VIEW COMPARISON: [facility], XR, CHEST 1 VIEW, 12/21/2022, 16:24. INDICATIONS: Fever. FINDINGS: LUNGS: Normal. No significant pulmonary parenchymal abnormalities. VASCULATURE: Normal. Unremarkable pulmonary vasculature. CARDIAC: Normal. No cardiac silhouette abnormality or cardiomegaly. MEDIASTINUM: Normal. No visible mass or adenopathy. PLEURA: Normal. No effusion or pleural thickening. BONES: Normal. No fracture or visible bony lesion. OTHER: Negative. CONCLUSION: No acute disease. Dictated by: Kera Hawkins MD on 03/17/2023 at 14:28 Approved by: Kera Hawkins MD on 03/17/2023 at 14:30 Normal [facility] CMP with eGFRon 03-16-2023 AGE 58 years Normal [facility] Comment on above: Performed By: #### 2 53564 #### [facility],[address] [place] [address] 43732 Albumin [Mass/Vol] 3.3 g/dL Low 3.4 - 5.0 [facility] Comment on above: Performed By: #### 2 81174 #### [facility],[address] [place] [address] 72693 Albumin/Globulin [Mass ratio] 0.8 {ratio} Low 0.9 - 1.6 [facility] Comment on above: Performed By: #### 2 34895 #### [facility],[address] [place] [address] 97480 ALK PHOS 79 U/L Normal 46 - 116 [facility] Comment on above: Performed By: #### 2 97609 #### [facility],[address] [place] [address] 19003 ALT [Catalytic activity/Vol] 18 U/L Normal 14 - 59 [facility] Comment on above: Performed By: #### 2 31060 #### [facility],[address] [place] [address] 06713 Anion gap [Moles/Vol] 17 mmol/L Normal 10 - 20 [facility] Comment on above: Performed By: #### 2 83669 #### [facility],[address] [place] [address] 90484 AST [Catalytic activity/Vol] 11 U/L Low 13 - 39 [facility] Comment on above: Performed By: #### 2 69915 #### [facility],[address] [place] [address] 45081 B/C RATIO 12 ratio Normal 0 - 30 [facility] Comment on above: Performed By: #### 2 21678 #### [facility],[address] [place] [address] 19492 Bilirubin [Mass/Vol] 0.6 mg/dL Normal 0.2 - 1.0 [facility] Comment on above: Performed By: #### 2 00557 #### [facility],[address] [place] [address] 29892 Calcium [Mass/Vol] 9.4 mg/dL Normal 8.5 - 10.1 [facility] Comment on above: Performed By: #### 2 41759 #### [facility],[address] [place] [address] 78756 Chloride [Moles/Vol] 101 mmol/L Normal 98 - 107 [facility] Comment on above: Performed By: #### 2 65590 #### [facility],[address] [place] [address] 98526 CMP with eGFR Normal [facility] Comment on above: Result Comment: COMP REHENSIVE METABOLIC PANEL Performed By: #### 2 51883 #### [facility],[address] [place] [address] 07623 CO2 [Moles/Vol] 22.3 mmol/L Normal 21.0 - 32.0 [facility] Comment on above: Performed By: #### 2 31121 #### [facility],[address] [place] [address] 36620 Creatinine [Mass/Vol] 0.89 mg/dL Normal 0.55 - 1.02 [facility] Comment on above: Performed By: #### 2 80738 #### [facility],[address] [place] [address] 56466 GFR/1.73 sq M.predicted among non-blacks MDRD (S/P/Bld) [Vol rate/Area] mL/min/{1.73_m2} Normal 60 - 999 [facility] Comment on above: Performed By: #### 2 25977 #### [facility],[address] [place] [address] 64715 Result Comment: ACCO RDING TO THE NATIONAL KIDNEY DISEASE EDUCATION PROGRAM(NKDE), A NORMAL eGFR IS A VALUE GREATER THAN OR EQUAL TO 60 ML/MIN/1.73 SQ METERS. CHRONIC KIDNEY DISEASE: <60mL/MIN/1.73 SQ METERS KIDNEY FAILURE: <15mL/MIN/1.73 SQ METERS THIS TEST SHOULD ONLY BE USED FOR PATIENTS 18 YEARS OF AGE AND OLDER. Globulin (S) [Mass/Vol] 4.4 g/dL High 1.5 - 3.8 [facility] Comment on above: Performed By: #### 2 73132 #### [address] [address] Glucose [Mass/Vol] 127 mg/dL High 74 - 106 [facility] Comment on above: Performed By: #### 2 06665 #### [facility],[address] [place] [address] 56793 Potassium [Moles/Vol] 2.6 mmol/L Critically low 3.5 - 5.1 [facility] Comment on above: Result Comment: { CA LLED TO ALBINO/JLN 1753 { READ BACK BY [id number] Performed By: #### 2 47254 #### [facility],[address] [place] [address] 29946 Protein [Mass/Vol] 7.7 g/dL Normal 6.4 - 8.2 [facility] Comment on above: Performed By: #### 2 70768 #### [facility],[address] [place] [address] Sodium [Moles/Vol] 138 mmol/L Normal 136 - 145 [facility] Comment on above: Performed By: #### 2 20301 #### [facility],[address] [place] [address] Urea nitrogen [Mass/Vol] 11 mg/dL Normal 7 - 18 [facility] Comment on above: Performed By: #### 2 38787 #### [facility],[address] [place], [place] [address] CORONAVIRUS (SARS) ANTIGEN T ESTon 03-16-2023 EXTERNAL QC DONE? YES Normal [facility] Comment on above: Performed By: #### 2 13112 #### [facility],[address] [place] [address] INTERNAL CONTROL PASS Normal [facility] Comment on above: Performed By: #### 2 64298 #### [facility],[address] [place], [place] [id number] SARS ANTIGEN Negative Normal NORMAL: NEGATIVE [facility] Comment on above: Performed By: #### 2 06363 #### [facility],[address] [place], [place] [address] SEND TO ? YES Normal [facility] Comment on above: Result Comment: SARS -CoV-2 THIS TEST IS BEING USED UNDER THE FDA EUA PROCEDURE. THIS ASSAY HAS BEEN VALIDATED AT [facility] FOR USE WITH NASAL AND NASOPHARYNGEAL SWAB SPECIMENS. INTERPRETIVE DATA TEST RESULTS SHOULD ALWAYS BE CONSIDERED IN THE CONTEXT OF CLINICAL OBSERVATIONS AND EPIDEMIOLOGICAL DATA IN MAKING FINAL DIAGNOSIS AND PATIENT MANAGEMENT DECISIONS. PATIENT MANAGEMENT SHOULD FOLLOW CURRENT CDC GUIDELINES. THE KASHMIR SARS ANTIGEN MALACHI DOES NOT DIFFERENTIATE BETWEEN SARS-CoV & SARS-CoV-2. A POSITIVE TEST RESULT INDICATES THE PRESENCE OF SARS-CoV-2 NUCLEOCAPSID PROTEIN ANTIGEN, AND THE PATIENT IS INFECTED WITH THE VIRUS AND PRESUMED TO BE CONTAGIOUS. A NEGATIVE TEST RESULT FOR THIS TEST MEANS THAT SARS-CoV-2 NUCLEOCAPSID PROTEIN ANTIGEN WAS NOT PRESENT IN THE SPECIMEN ABOVE THE LIMIT OF DETECTION. HOWEVER, A NEGATIVE RESULT DOES NOT RULE OUT COVID-19 AND SHOULD NOT BE USED THE SOLE BASIS FOR TREATMENT OR PATIENT MANAGEMENT DECISIONS. A NEGATIVE RESULT DOES NOT EXCLUDE THE POSSIBILITY OF COVID-19. NEGATIVE RESULTS, FROM PATIENTS WITH SYMPTOM ONSET BEYOND FIVE DAYS, SHOULD BE TREATED PRESUMPTIVE AND CONFIRMATION WITH A MOLECULAR ASSAY, IF NECESSARY, FOR PATIENT MANAGEMENT, MAY BE PERFORMED. WHEN DIAGNOSTIC TESTING IS NEGATIVE, THE POSSIBLILTY OF A FALSE NEGATIVE RESULT SHOULD BE CONSIDERED IN THE CONTEXT OF A PATIENT'S RECENT EXPOSURES AND THE PRESENCE OF CLINICAL SIGNS AND SYMPTOMS CONSISTENT WITH COVID-19. THE POSSIBILITY OF A FALSE NEGATIVE RESULT SHOULD ESPECIALLY BE CONSIDERED IF THE PATIENT'S RECENT EXPOSURES OR CLINICAL PRESENTATION INDICATE THAT COVID-19 IS LIKELY, AND DIAGNOSTIC TESTS FOR OTHER CAUSES OF ILLNESS (e.g., OTHER RESPIRATORY ILLNESS) ARE NEGATIVE. IF COVID-19 IS STILL SUSPECTED BASED ON EXPOSURE HISTORY TOGETHER WITH OTHER CLINICAL FINDINGS, RE-TESTING SHOULD BE CONSIDERED BY HEALTHCARE PROVIDERS IN CONSULTATION WITH PUBLIC HEALTH AUTHORITIES. Performed By: #### 2 84865 #### [place] [address] CT ABDOMEN/PELVIS [facility] 2023 CT ABDOMEN/PELVIS [place] [address] Patient: CHAD PANTOJA Phone#: : 1965 Age: 58 Gender: F Pt. Type: ER Account: [id number] Location: [facility] Ordering: BETZAIDA CLARK Exam Date: 03/16/2023/18:12 Family Phys: ISAIAS DANIEL Charge Code: [id number] Physician: Bamberg Order #: [id number] Dose#: 19.40 mGy PROCEDURE: CT ABDOMEN/PELVIS WITH CONTRAST COMPARISON: [facility], CT, ABDOMEN/PELVIS W CON, 12/17/2019, 21:29. [facility], CT, ABDOMEN/PELVIS W/O CON, 12/21/2022, 17:48. INDICATIONS: Vomiting. TECHNIQUE: After obtaining the patient's consent, CT images were created with non-ionic intravenous contrast material. All CT scans at this facility use dose modulation, iterative reconstruction, and/or weight based dosing when appropriate to reduce radiation dose to as low as reasonably achievable. IV CONTRAST: Omnipaque 350,80ml TOTAL DOSE: 19.40 CTDIvol(mGy) FINDINGS: LIVER: Stable low-attenuation lesion left lobe measuring 0.4 cm. No enlargement, atrophy, or significant focal lesion. BILIARY: Gallbladder is absent, surgical clips are in the gallbladder fossa PANCREAS: Normal. No lesion, fluid collection, ductal dilatation, or atrophy. SPLEEN: Normal. No enlargement or focal lesion. Splenule adjacent to the anterior margin of the spleen. KIDNEYS: There are multifocal low attenuation areas of decreased enhancement in the left kidney with indistinct margins findings most suggestive of pyelonephritis. Lesions measure 2.3 x 2.0 cm, 1.5 x 1.1 cm and in the upper pole 1.9 x 1.9 cm. There is left perinephric stranding. Right kidney demonstrates homogeneous contrast enhancement and excretion. No hydronephrosis. ADRENALS: Normal. No mass or enlargement. AORTA/VASCULAR: No aortic aneurysm. There are atherosclerotic calcifications of the aorta and branch vessels. RETROPERITONEUM: Normal. No mass or adenopathy. BOWEL/MESENTERY: No bowel obstruction or dilatation. No significant stool burden. Moderate stool burden. The cecum is capacious. Continued Report - Page 2 of 2 Patient: CHAD PANTOJA Phone#: : 1965 Age: 58 Gender: F Pt. Type: ER Account: [id number] Location: 052 Ordering: BETZAIDA CLARK Exam Date: 03/16/2023/18:12 Family Phys: ISAIAS DANIEL Charge Code: [id number] Physician: Bamberg Order #: [id number] Dose#: 19.40 mGy ABDOMINAL WALL: Fat containing umbilical hernia URINARY BLADDER: Normal. No visible focal wall thickening, lesion, or calculus. PELVIC NODES: Normal. No adenopathy. PELVIC ORGANS: Uterus is present. No adnexal mass. Surgical clips in the adnexa, correlate for tubal ligation history BONES: Disc height loss at L5-S1. Facet arthropathy in lower lumbar spine. LUNG BASES: Atelectasis in the lung bases. Stable right lower lobe pulmonary nodule measuring 0.3 cm. OTHER: Negative. CONCLUSION: 1. Probable left pyelonephritis. Recommend follow-up to confirm clearing and to exclude underlying lesion. Dictated by: Kera Hawkins MD on 03/16/2023 at 20:03 Approved by: Kera Hawkins MD on 03/17/2023 at 14:59 Normal [facility] CULTURE BLOOD [PRAVIN]on Microscopic examination of blood, culture CULTURE BLOOD [PRAVIN] _[facility] FOR SCANNED REPORT 03/25/23.1106.DNP.CO MPLETE Normal [facility] Comment on above: Performed By: #### 2 98070 #### [place] [address] INFLUENZA VIRUS RAPID A/Bon 03-16-2023 INFLUENZA VIRUS RAPID A/B INFLUENZA A NEGATIVE INFLUENZA B NEGATIVE INTERNAL NEG QC PASS INTERNAL POS QC PASS EXTERNAL QC DONE? YES SEND TO IC? YES A NEGATIVE TEST RESULT DOES NOT EXCLUDE INFECTION WITH INFLUENZA A OR B. THEREFORE, THE RESULTS OBTAINED FROM THIS FLU TEST SHOULD BE USED IN CONJUCTION WITH CLINICAL FINDINGS TO MAKE AN ACCURATE DIAGNOSIS. A POSITIVE RESULT DOES NOT RULE OUT CO-INFECTIONS WITH OTHER PATHOGENS OR IDENTIFY ANY SPECIFIC INFLUENZA A VIRUS SUBTYPE.CO-INFECTION WITH INFLUENZA A AND B IS RARE. IT IS RECOMMENDED THAT DUAL POSITIVE RESULTS BE CONFIRMED BY VIRAL CULTURE OR AN FDA-CLEARED INFLUENZA A AND B MOLECULAR ASSAY. INDIVIDUALS WHO HAVE RECEIVED NASALLY ADMINISTERED INFLUENZA A VACCINE MAY TEST POSITIVE IN COMMERCIALLY AVAILABLE INFLUENZA RAPID DIAGNOSTIC TESTS FOR UP TO THREE DAYS. RESULT CRITICAL? NO Normal [facility] Comment on above: Performed By: #### 2 08475 #### [facility],[address] [place], [place] [id number] LACTATEon 03-16-2023 Lactate [Moles/Vol] 1.1 mmol/L Normal 0.4 - 2.0 [facility] Comment on above: Performed By: #### 2 41959 #### [facility],[address] [place], [place] [address] URINALYSISon 03-16-2023 Amorphous NONE Normal [facility] Comment on above: Performed By: #### 2 13328 #### [facility],[address] [place] [address] 60337 Bacteria 4+ Normal [facility] Comment on above: Performed By: #### 2 83987 #### [facility],[address] [place] [address] 16460 Bilirubin Ql (U) Negative Normal NORMAL: NEGATIVE [facility] Comment on above: Performed By: #### 2 49534 #### [facility],[address] [place], [place] [id number] Casts NONE Normal [facility] Comment on above: Performed By: #### 2 38509 #### [facility],[address] [place], [place] [address] Clarity (U) sl.cloudy Normal NORMAL: CLEAR [facility] Comment on above: Performed By: #### 2 07574 #### [facility],[address] [place] [address] 87755 Color (U) yellow Normal NORMAL: YELLOW [facility] Comment on above: Performed By: #### 2 20483 #### [facility],[address] [place] [address] 44224 Crystals LM Nom (Urine sed) NONE Normal [facility] Comment on above: Performed By: #### 2 35619 #### [facility],[address] [place] [address] 65389 Epi Cells OCC Normal [facility] Comment on above: Performed By: #### 2 90322 #### [facility],[address] [place] [id number] Glucose Ql (U) NORM Normal NORMAL: NORMAL [facility] Comment on above: Performed By: #### 2 [id number] #### [facility],[address] [place] [address] Hemoglobin Ql (U) 50 Abnormal NORMAL: NEGATIVE [facility] Comment on above: Performed By: #### 2 [id number] #### [facility],[address] [place] [address]33 Ketone 5 Abnormal NORMAL: NEGATIVE [facility] Comment on above: Performed By: #### 2 [id number] #### [facility],[address] [place] [address] 64494 Leukocytes 500 Abnormal NORMAL: NEGATIVE [facility] Comment on above: Performed By: #### 2 12055 #### [facility],[address] [place] [address] Mucous NONE Normal [facility] Comment on above: Performed By: #### 2 [id number] #### [facility],[address] [place] [address] 40253 Nitrite Ql (U) Positive Normal NORMAL: NEGATIVE [facility] Comment on above: Performed By: #### 2 58114 #### [facility],[address] [place], [place] [id number] pH (U) 6 [pH] Normal NORMAL: 5.0-8.0 [facility] Comment on above: Performed By: #### 2 92708 #### [facility],[address] [place] [address] Protein Ql (U) 30 Abnormal NORMAL: NEGATIVE [facility] Comment on above: Performed By: #### 2 14357 #### [facility],[address] [place] [address] 217[address] Rbc 0-5 Normal 0-3/hpf [facility] Comment on above: Performed By: #### 2 23435 #### [facility],[address] [place] [address] 12533 Sp [place] 1.010 Normal NORMAL: 1.010-1.030 [facility] Comment on above: Performed By: #### 2 84027 #### [facility],[address] [place], [place] [id number] Specimen Type Clean catch Normal [facility] Comment on above: Performed By: #### 2 [id number] #### [facility],[address] [place] [address] Urinalysis dipstick W Reflex Microscopic panel (U) SEE BELOW Normal [facility] Comment on above: Result Comment: MICR OSCOPIC Performed By: #### 2 77847 #### [facility],[address] [place] [address] Urobilinog NORM Normal NORMAL: NORMAL [facility] Comment on above: Performed By: #### 2 69430 #### [facility],[address] [place] [address] WBC (U) [#/Vol] /uL Normal 0-5/hpf [facility] Comment on above: Performed By: #### 2 [id number] #### [facility],[address] [place] [address] Yeast NONE Normal [facility] Comment on above: Performed By: #### 2 67007 #### [facility],[address] [place] [address] URINE CULTURE [CCL]on 2023 Bacteria identified Cx Nom (U) URCUL See Results Below See Below CULTURE, URINE ESCHERICHIA COLI >=100,000 CFU/ml Escherichia coli ORGANISM: ESCHERICHIA COLI ANTIBIOTIC CHACE DILUTN CHACE INTERP Ampicillin <=2 Susceptible Cefazolin <=4 Susceptible For uncomplicated urinary tract infections, cefazolin results can be used to pre Ceftriaxone <=1 Susceptible Cefepime <=1 Susceptible Ertapenem <=0.5 Susceptible Meropenem <=0.25 Susceptible Ampicillin/Sulbact <=2 Susceptible Piperacillin/Tazobac <=4 Susceptible Gentamicin <=1 Susceptible Tobramycin <=1 Susceptible Trimeth sulfameth <=20 Susceptible Ciprofloxacin <=0.25 Susceptible Nitrofurantoin <=16 Susceptible This test was developed and its performance characteristics determined by the [facility] [place] ([facility] It has not been cleared or approved by the FDA. [facility] is regulated under CLIA as qualified to perform high-complexity testing. This test is used for clinical purposes. It should not be regarded as investigational or for research. SOURCE: URINE [facility] [address] [address] Naren Quintanilla III, M.D. [id number] Normal [facility] Comment on above: Performed By: #### 2 [id number] #### [facility],[address] [place] [address] EMERGENCY REPORTon 3 EMERGENCY REPORT [facility] EMERGENCY ROOM REPORT NAME ACCOUNT SEX AGE ADMIT DISCHARGE PT MED. RECORD# NUMBER DATE DATE TYPE CHAD PANTOJA [id number] F 57 12/21/22 12/22/22 3 [id number] ROOM: ER DATE OF : 1965 DICTATING PHYSICIAN: Samina Reyes ADDENDUM EMERGENCY DEPARTMENT COURSE AND TREATMENT: The patient was seen initially by Dr. Cy Villanueva and arrangements were made for the patient to be transported. There was some delay in getting her to [facility] due to transport issues. Patient continued to rest comfortably here in the emergency room, however. blood pressure 116/68, pulse came nicely to 86, respirations 21. O2 saturation 95 on room air. Temperature which was initially 103 rectally; she felt cooler to touch. She was given Tylenol, fluids. She was working on the 4th liter of fluids. She left here and there still was not a whole lot of output. Her lactate has improved some. Her repeat potassium was lower and she need to be supplemented and Dr. Villanueva had ordered and her creatinine came down actually just a little bit but I think it is going to be seen that most of this acute renal injury should resolve with fluids. She continued to be alert and appropriate prior to time of transport. She was resting comfortably. She was speaking well. Skin was warm and dry. She was respiring normally. States that she was feeling better. This lady clearly from the description by Dr. Villanueva and from the description of the records she had septic shock and she is going to the medical ICU and think that is very justified location for her at this time. Dictated By: Samina Reyes DO 12/22/22 02:01 JOB #: [id number] Transcribed By: sonya 12/23/22 12:56 Electronically signed by: E-SIGN SAMINA REYES DO 01/11/23 20:18 Page 1 of 1 CHAD PANTOJA Emergency Room Report Normal [facility] EMERGENCY REPORTon 3 EMERGENCY REPORT [facility] EMERGENCY ROOM REPORT NAME ACCOUNT SEX AGE ADMIT DISCHARGE PT MED. RECORD# NUMBER DATE DATE TYPE CHAD PANTOJA [id number] F 57 12/21/22 12/22/22 3 [id number] ROOM: ER DATE OF : 1965 DICTATING PHYSICIAN: Cy Villanueva CHIEF COMPLAINT: Vomiting, diarrhea and weakness. HISTORY OF PRESENT ILLNESS: The patient stated that she started getting sick yesterday. 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 By evening, she had some vomiting and diarrhea and that persisted in through the night. She had some continue today. She states that she has been unable to keep anything down through the day at all. She is complaining of severe diarrhea. Has some mild abdominal pain with it. Has developed increasing weakness to the point that she really could not get out of bed. PAST MEDICAL HISTORY: Difficult to get from patient, as she is a bit lethargic. Reviewing old chart shows that she has a history of hypertension, hypothyroidism. MEDICATIONS: Unknown. ALLERGIES: Unknown. SOCIAL HISTORY: She lives at home. Denies smoking. As mentioned, she works at [employer]. REVIEW OF SYSTEMS: Not complaining of chest pain. No recent injuries. This was difficult to obtain from the patient as she was quite lethargic. PHYSICAL EXAMINATION: GENERAL: Patient appears quite ill. SKIN: Cool and dry. HEENT: Head and scalp appear unremarkable. Very dry mucosa with gummy sticky mucous in her mouth. There are no lesions or erythema of significance. TMs and canals are normal. NECK: Very supple. LUNGS: Clear. She is somewhat tachypneic but there are no crackles or wheezes. CARDIAC: Regular, tachy rate of about 125. ABDOMEN: Soft without tenderness, guarding or rebound. EXTREMITIES: Cool and dry. Markedly diminished capillary refill. She has very weak peripheral pulses. VITAL SIGNS: Temperature 98.2, pulse 116, respirations 42, blood pressure 86/63. DIAGNOSTIC DATA: EKG showed sinus tachycardia with nonspecific changes. Chest x-ray showed no acute infiltrates per my reading. A number of lab studies and blood cultures were obtained. COVID and flu swabs were obtained, both negative. Labs returned showing a CBC with a white count of 18,000, Page 1 of 2 [facility] Emergency Room Report CHAD PANTOJA : 1965 97% neutrophils. Chemistries showed a sodium of 133, potassium 2.4. BUN and creatinine of 49 and 4.4. Her CO2 was 17.8. Glucose 201. ALT and AST were normal. Bilirubin was normal. Lactate returned 7.0. Troponin was 198.4. ABGs later returned showing a pH of 7.42, pCO2 of 22, pO2 of 80, bicarb of 14. Repeat CMP; sodium 123, potassium 2.5. BUN and creatinine of 49 and 3.96. Her lactate improved slightly to 6.4. EMERGENCY DEPARTMENT COURSE AND TREATMENT: Patient appeared extremely dehydrated. Was suspicious for sepsis. We started IV fluids through 2 IVs. Her blood pressure and her heart rate gradually improved with IV fluids after 2.5 liters. She was 119/80 blood pressure and heart rate was 100. At that point she was run at 200 an hour. I did start Zosyn IV. We did do a catheterized urine which only returned a couple of drops. This was sent for culture. I did later get abdominal CT which did not show any obvious acute abnormalities other than some small bowel mucosal thickening, consistent with enteritis. She has acute kidney injury, elevated troponin, marked hypokalemia. [place] was begun in the ED as well. DIAGNOSIS: Patient presents with presumed septic shock, cause unclear. PLAN/DISPOSITION: Discussed with Dr. Rushing who felt that patient should be transferred because of her multisystem involvement. Arrangements are being done as of this dictation for that. Dictated By: Cy Villanueva MD 12/21/22 19:37 JOB #: [id number] Transcribed By: sonya 12/23/22 09:51 Electronically signed by: CELI Villanueva M.D. 12/30/22 07:43 Page 2 of 2 CHAD PANTOJA Emergency Room Report Normal [facility] Absolute lymphocyte countOrd ered By: Amadou Gonzáles on 12-27-2022 Lymphocytes Auto (Unsp spec) [#/Vol] 2.65 10*3/uL 0.83-4.51 [facility] Basophil percentageOrdered B y: Amadou Gonzáles on 12-27-2022 Basophils/100 WBC (Bld) 0.4 % 0-1 [facility] Bilirubin [Mass/Vol] 0.30 mg/dL 0.20-1.00 [facility] Comment on above: For patients on eltr ombopag therapy, use of Dimension [place] TBIL is not recommended. Chloride [Moles/Vol] 103 mmol/L 98-107 [facility] Cholesterol [Mass/Vol] 173 mg/dL <200 [facility] Comment on above: <200 mg/dL Desirable 200-240 mg/dL Borderline >240 mg/dL High Risk Eosinophils/100 WBC (Bld) 4.6 % 0-5 [facility] Glucose [Mass/Vol] 100 mg/dL 74-106 [facility] Comment on above: Fasting Glucose resu lt from 100 to 125 mg/dL suggests IMPAIRED HOMEOSTASIS per A.D.A. criteria. Neutrophils (Bld) [#/Vol] 3.9 10*3/uL 2.0-7.7 [facility] Neutrophils/100 WBC (Bld) 50.1 % 47-70 [facility] Potassium [Moles/Vol] 3.5 mmol/L 3.5-5.1 [facility] Protein [Mass/Vol] 6.6 g/dL 6.4-8.2 [facility] Sodium [Moles/Vol] 141 mmol/L 136-145 [facility] Triglyceride [Mass/Vol] 177 mg/dL <199 [facility] Comment on above: The drugs N-Acetylcy steine and Metamizole may falsely depress this assay.Serum Triglycerides Reference Interval Normal <150 mg/dL Borderline high 150 - 199 mg/dL High 200 - 499 mg/dL Very High > or = 500 mg/dL WBC (Bld) [#/Vol] 7.8 10*3/uL 4.4-11.0 [facility] Blood erythrocytes count (nu mber/volume)Ordered By: Amadou Gonzáles on 12-27-2022 RBC (Bld) [#/Vol] 3.93 10*6/uL 4.2-5.4 [facility] Blood hemoglobin measurement (mass/volume)Ordered By: Amadou Gonzáles on 12-27-2022 Hemoglobin (Bld) [Mass/Vol] 11.5 g/dL 12.0-15.0 [facility] Blood lymphocytes/100 leukoc ytesOrdered By: Amadou Gonzáles on 12-27-2022 Lymphocytes/100 WBC (Bld) 34.0 % 19-41 [facility] Blood monocytes/100 leukocyt esOrdered By: Amadou Gonzáles on 12-27-2022 Monocytes/100 WBC (Bld) 8.6 % 0-10 [facility] Blood platelet mean volumeOr dered By: Amadou Gonzáles on 12-27-2022 Platelet mean volume (Bld) [Entitic vol] 9.9 fL 6.2-12.0 [facility] Determination of erythrocyte mean corpuscular volume (MCV)Ordered By: Amadou Gonzáles on 12-27-2022 MCV (RBC) [Entitic vol] 89.3 fL 81-99 [facility] Erythrocyte sedimentation ra teOrdered By: Amadou Gonzáles on 12-27-2022 ESR (Bld) [Velocity] 41 mm/h 0-30 [facility] Hematocrit Auto (Bld) [Volum e fraction]Ordered By: Amadou Gonzáles on 12-27-2022 Hematocrit (Bld) [Volume fraction] 35.1 % 37-47 [facility] Hemoglobin in reticulocytes (mass per reticulocyte)Ordered By: Amadou Gonzáles on 12-27-2022 Hemoglobin (Reticulocytes) [Entitic mass] 32.1 pg 30-35 [facility] Iron measurement (mass/mass) Ordered By: Amadou Gonzáles on 12-27-2022 Iron (Unsp spec) [Mass/Mass] 61 ug/dL 50-170 [facility] Laboratory - Chemistry and C hemistry - challengeOrdered By: Amadou Gonzáles on 12-27-2022 ALP [Catalytic activity/Vol] 86 U/L 45-117 [facility] ALT [Catalytic activity/Vol] 42 U/L 13-56 [facility] CO2 [Moles/Vol] 30.0 mmol/L 21.0-32.0 [facility] Free T4 [Mass/Vol] 0.86 ng/dL 0.76-1.46 [facility] Globulin (S) [Mass/Vol] 4.0 g/dL 2.2-4.2 [facility] Magnesium [Mass/Vol] 1.6 mg/dL 1.6-2.6 [facility] Urea nitrogen/Creatinine [Mass ratio] 16.6 mg/mg 10-20 [facility] - Hematology and Cell countsOrdered By: Amadou Gonzáles on 12-27-2022 Erythrocyte distribution width (RBC) [Entitic vol] 53.2 fL 35.1-43.9 [facility] Erythrocyte distribution width (RBC) [Ratio] 16.0 % 11.6-14.6 [facility] Immature granulocytes/100 WBC (Bld) 2.300 % 0.0-0.9 [facility] Comment on above: IG% - Immature Granu locytes (promyelocytes, myelocytes and metamyelocytes) > 1% indicates that a LEFT SHIFT is Present. MCH (RBC) [Entitic mass] 29.3 pg 27.0-32.0 [facility] Nucleated RBC/100 WBC (Bld) [Ratio] 0 % 0-5 [facility] MCHC Auto (RBC) [Mass/Vol]Or dered By: mAadou Gonzáles on 12-27-2022 MCHC (RBC) [Mass/Vol] 32.8 g/dL 32-36 [facility] No Panel InformationOrdered By: Amadou Gonzáles on 12-27-2022 Estimated GFR (MDRD) Amer 89 mL/min >60 [facility] Comment on above: GFR Calc Estimated GFR (MDRD) Non-Af Amer 73 mL/min >60 [facility] Comment on above: Non- GFR Calc Immature Reticulocyte Fraction 13.90 % 3.00-15.90 [facility] Reticulocyte Count 0.71 % 0.5-1.5 [facility] Thyroid Stimulating Hormone (TSH) 15.50 uIU/mL 0.358-3.74 [facility] Vitamin D 25-Hydroxy 76.8 ng/mL [facility] Comment on above: Vitamin D 25(OH) Sta tus Range Deficiency <20 ng/mL (50nmol/L) Insufficiency 20 - 30 ng/mL (50 - 75 nmol/L) Sufficiency 30 - 100 ng/mL (75 - 250 nmol/L) Toxicity >100 ng/mL (>250 nmol/L) Platelets bldOrdered By: Anh Gonzáles on 12-27-2022 Platelets (Bld) [#/Vol] 381 10*3/uL 150-450 [facility] Serum or plasma C reactive p rotein measurement (mass/volume)Ordered By: Amadou Gonzáles on 12-27-2022 CRP [Mass/Vol] 12.70 mg/L 0.0-3.0 [facility] Comment on above: C-Reactive Protein ( CRP) provides useful information for thediagnosis, therapy and monitoring of inflammatory processesand associated diseases. For the evaluation of Relative Riskfor Cardiovascular Disease, a High Sensitivity CRP (HSCRP)should be ordered. Serum or plasma albumin joselyn urement (mass/volume)Ordered By: Amadou Gonzáles on 12-27-2022 Albumin [Mass/Vol] 2.6 g/dL 3.2-5.0 [facility] Serum or plasma albumin/glob ulin mass ratioOrdered By: Amadou Gonzáles on 12-27-2022 Albumin/Globulin [Mass ratio] 0.6 {ratio} 0.9-2.4 [facility] Serum or plasma calcium joselyn urement (mass/volume)Ordered By: Amadou Gonzáles on 12-27-2022 Calcium [Mass/Vol] 8.5 mg/dL 8.5-10.1 [facility] Serum or plasma cholesterol in HDL measurement (mass/volume)Ordered By: Amadou Gonzáles on 12-27-2022 Cholesterol in HDL [Mass/Vol] 40 mg/dL >40 [facility] Comment on above: The drugs N-Acetylcy steine and Metamizole may falsely depress this assay. Reference Range HDL <40 mg/dL Low HDL Cholesterol HDL >or= 60 mg/dL High HDL Cholesterol Serum or plasma cholesterol in VLDL measurement (mass/volume)Ordered By: Amadou Gonzáles on 12-27-2022 Cholesterol in VLDL [Mass/Vol] 35 mg/dL 5-40 [facility] Serum or plasma creatinine m easurement (mass/volume)Ordered By: Amadou Gonzáles on 12-27-2022 Creatinine [Mass/Vol] 0.84 mg/dL 0.55-1.02 [facility] Comment on above: The validity of the calculated GFR & GFRAA in patients over 70 years has not been determined. Clinical correlation is essential. Serum or plasma ferritin williams surement (mass/volume)Ordered By: Amadou Gonzáles on 12-27-2022 Ferritin [Mass/Vol] 358 ng/mL 8-252 [facility] Serum or plasma low density lipoprotein (LDL) cholesterol measurement (mass/volume)Ordered By: Amadou Gonzáles on 12-27-2022 Cholesterol in LDL [Mass/Vol] 98 mg/dL 0-130 [facility] Serum or plasma urea nitroge n measurement (mass/volume)Ordered By: Amadou Gonzáles on 12-27-2022 Urea nitrogen [Mass/Vol] 14 mg/dL 7-18 [facility] Thin prep Papanicolaou smear with manual screeningOrdered By: Amadou Gonzáles on 12-27-2022 Thin prep Papanicolaou smear with manual screening 31 U/L 15-37 [facility] Thin prep Papanicolaou smear with manual screening 8 5-15 [facility] .Auto Diffon 12-24-2022 Basophil, Absolute 0.0 10 3/mcL Normal 0.0-0.3 [facility] ([place]) Comment on above: Performed By: #### M G, CBC, CAION, PHOS, GFR, ADIFF, TROPHS, ANEU, CMP #### [address] [address] Basophils/100 WBC (Bld) 0.5 % Normal 0.0-2.5 A [facility] ([place]) Comment on above: Performed By: #### M G, CBC, CAION, PHOS, GFR, ADIFF, TROPHS, ANEU, CMP #### [address] [address] Eosinophil, Absolute 1.1 10 3/mcL High 0.0-0.7 [facility] ([place]) Comment on above: Performed By: #### M G, CBC, CAION, PHOS, GFR, ADIFF, TROPHS, ANEU, CMP #### [address] [address] Eosinophils/100 WBC (Bld) 16.1 % High 0.0-6.0 [facility]ending [facility] ([place]) Comment on above: Performed By: #### M G, CBC, CAION, PHOS, GFR, ADIFF, TROPHS, ANEU, CMP #### [address] [address] Lymphocyte, Absolute 1.7 10 3/mcL Normal 0.9-4.3 [facility] ([place]) Comment on above: Performed By: #### M G, CBC, CAION, PHOS, GFR, ADIFF, TROPHS, ANEU, CMP #### [address] [address] Lymphocytes/100 WBC (Bld) 25.4 % Normal 20.0-40.0 [facility]ending [facility] ([place]) Comment on above: Performed By: #### M G, CBC, CAION, PHOS, GFR, ADIFF, TROPHS, ANEU, CMP #### [address] [address] Monocyte, Absolute 0.5 10 3/mcL Normal 0.1-1.4 [facility] ([place]) Comment on above: Performed By: #### M G, CBC, CAION, PHOS, GFR, ADIFF, TROPHS, ANEU, CMP #### [address] [address] Monocytes/100 WBC (Bld) 8.1 % Normal 2.0-13.0 [facility] ([place]) Comment on above: Performed By: #### M G, CBC, CAION, PHOS, GFR, ADIFF, TROPHS, ANEU, CMP #### [address] [address] Neutrophils/100 WBC (Bld) 49.9 % Low 50.0-75.0 [facility] ([place]) Comment on above: Performed By: #### M G, CBC, CAION, PHOS, GFR, ADIFF, TROPHS, ANEU, CMP #### [address] [address] .GFRon 12-24-2022 GFR Non- 46 ml/min/1.73sqm Normal [facility] ([place]) Comment on above: Result Comment: GFR Population mean for , Non- Americans Ages 20-29 = 116 mL/min/1.73 sq.m. Ages 30-39 = 107 mL/min/1.73 sq.m. Ages 40-49 = 99 mL/min/1.73 sq.m. Ages 50-59 = 93 mL/min/1.73 sq.m. Ages 60-69 = 85 mL/min/1.73 sq.m. Ages 70+ = 75 mL/min/1.73 sq.m. Chronic Kidney Disease: Less than 60 mL/min/1.73 square meters End Stage Renal Disease: Less than 15 mL/min/1.73 square meters Performed By: #### M G, CBC, CAION, PHOS, GFR, ADIFF, TROPHS, ANEU, CMP #### [address] [address] GFR 56 ml/min/1.73sqm Normal [facility] ([place]) Comment on above: Result Comment: GFR Population mean for , Non- Americans Ages 20-29 = 116 mL/min/1.73 sq.m. Ages 30-39 = 107 mL/min/1.73 sq.m. Ages 40-49 = 99 mL/min/1.73 sq.m. Ages 50-59 = 93 mL/min/1.73 sq.m. Ages 60-69 = 85 mL/min/1.73 sq.m. Ages 70+ = 75 mL/min/1.73 sq.m. Chronic Kidney Disease: Less than 60 mL/min/1.73 square meters End Stage Renal Disease: Less than 15 mL/min/1.73 square meters Performed By: #### M G, CBC, CAION, PHOS, GFR, ADIFF, TROPHS, ANEU, CMP #### [address] [address] .NEUABSon 12-24-2022 Neutrophil, Absolute 3.3 10 3/mcL Normal 2.3-8.1 [facility] ([place]) Comment on above: Performed By: #### M G, CBC, CAION, PHOS, GFR, ADIFF, TROPHS, ANEU, CMP #### [address] [address] BMPon 12-24-2022 BUN/Creatinine Ratio 22.7 ratio High 10.0-22.0 [facility] ([place]) Comment on above: Performed By: #### M G, CBC, CAION, PHOS, GFR, ADIFF, TROPHS, ANEU, CMP #### [address] [address] Calcium [Mass/Vol] 8.0 mg/dL Low 8.7-10.4 [facility] ([place]) Comment on above: Performed By: #### M G, CBC, CAION, PHOS, GFR, ADIFF, TROPHS, ANEU, CMP #### [address] [address] Chloride [Moles/Vol] 107 mmol/L Normal 98-110 [facility] ([place]) Comment on above: Performed By: #### M G, CBC, CAION, PHOS, GFR, ADIFF, TROPHS, ANEU, CMP #### [address] [address] CO2 [Moles/Vol] 35 mmol/L High 22-32 [facility] ([place]) Comment on above: Performed By: #### M G, CBC, CAION, PHOS, GFR, ADIFF, TROPHS, ANEU, CMP #### [address] [address] Creatinine [Mass/Vol] 1.19 mg/dL Normal 0.50-1.20 [facility] ([place]) Comment on above: Performed By: #### M G, CBC, CAION, PHOS, GFR, ADIFF, TROPHS, ANEU, CMP #### [address] [address] Electrolyte Balance 2.0 mEq/L Low 4.0-15.0 [facility] ([place]) Comment on above: Performed By: #### M G, CBC, CAION, PHOS, GFR, ADIFF, TROPHS, ANEU, CMP #### [address] [address] Glucose [Mass/Vol] 99 mg/dL Normal 70-110 [facility] ([place]) Comment on above: Performed By: #### M G, CBC, CAION, PHOS, GFR, ADIFF, TROPHS, ANEU, CMP #### [address] [address] Potassium [Moles/Vol] 3.6 mmol/L Normal 3.5-5.0 [facility] ([place]) Comment on above: Result Comment: Spec imen slightly hemolyzed. Performed By: #### M G, CBC, CAION, PHOS, GFR, ADIFF, TROPHS, ANEU, CMP #### [place] [id number] Sodium [Moles/Vol] 144 mmol/L Normal 136-145 [facility] ([place]) Comment on above: Performed By: #### M G, CBC, CAION, PHOS, GFR, ADIFF, TROPHS, ANEU, CMP #### [place] [id number] Urea nitrogen [Mass/Vol] 27.0 mg/dL High 8.0-22.0 [facility] ([place]) Comment on above: Performed By: #### M G, CBC, CAION, PHOS, GFR, ADIFF, TROPHS, ANEU, CMP #### [address] [address] CBCon 12-24-2022 Erythrocyte distribution width (RBC) [Ratio] 16.0 % High 11.5-15.5 [facility] ([place]) Comment on above: Performed By: #### M G, CBC, CAION, PHOS, GFR, ADIFF, TROPHS, ANEU, CMP #### [place] [id number] Hematocrit (Bld) [Volume fraction] 33.1 % Low 34.0-46.0 [facility] ([place]) Comment on above: Performed By: #### M G, CBC, CAION, PHOS, GFR, ADIFF, TROPHS, ANEU, CMP #### [place] [address] Hgb 11.3 G/dL Low 12.0-16.0 [facility] ([place]) Comment on above: Performed By: #### M G, CBC, CAION, PHOS, GFR, ADIFF, TROPHS, ANEU, CMP #### [place] [address] MCH (RBC) [Entitic mass] 29.8 pg Normal 27.0-33.0 Pending [place] To [facility] ([place] Comment on above: Performed By: #### M G, CBC, CAION, PHOS, GFR, ADIFF, TROPHS, ANEU, CMP #### [place] [address] MCHC 34.1 G/dL Normal 32.0-36.0 Pending [facility] To [facility] ([place] Comment on above: Performed By: #### M G, CBC, CAION, PHOS, GFR, ADIFF, TROPHS, ANEU, CMP #### [place] [address] MCV (RBC) [Entitic vol] 87.4 fL Normal 80.0-99.0 A [facility] ([place]) Comment on above: Performed By: #### M G, CBC, CAION, PHOS, GFR, ADIFF, TROPHS, ANEU, CMP #### [place] [address] Platelet 160 10 3/mcL Normal 150-450 [facility] ([place]) Comment on above: Performed By: #### M G, CBC, CAION, PHOS, GFR, ADIFF, TROPHS, ANEU, CMP #### [place] [address] Platelet mean volume (Bld) [Entitic vol] 8.5 fL Normal 6.6-10.5 [facility] ([place]) Comment on above: Performed By: #### M G, CBC, CAION, PHOS, GFR, ADIFF, TROPHS, ANEU, CMP #### [place] [address] RBC 3.78 10 6/mcL Low 4.10-5.30 [facility] ([place]) Comment on above: Performed By: #### M G, CBC, CAION, PHOS, GFR, ADIFF, TROPHS, ANEU, CMP #### [address] [address] WBC 6.7 10 3/mcL Normal 4.5-10.8 [facility] ([place]) Comment on above: Performed By: #### M G, CBC, CAION, PHOS, GFR, ADIFF, TROPHS, ANEU, CMP #### [address] [address] FT3on 12-24-2022 Free T3 [Mass/Vol] 1.40 pg/mL Low 2.30-4.20 [facility] ([place]) Comment on above: Performed By: #### M G, CBC, CAION, PHOS, GFR, ADIFF, TROPHS, ANEU, CMP #### [address] [address] FT4on 12-24-2022 Free T4 [Mass/Vol] 1.17 ng/dL Normal 0.89-1.76 [facility] ([place] Comment on above: Result Comment: No te - New Reference Range in effect 19 Performed By: #### M G, CBC, CAION, PHOS, GFR, ADIFF, TROPHS, ANEU, CMP #### [address] [address] MGon 12-24-2022 Magnesium [Mass/Vol] 2.1 mg/dL Normal 1.6-2.4 [facility] ([place]) Comment on above: Performed By: #### M G, CBC, CAION, PHOS, GFR, ADIFF, TROPHS, ANEU, CMP #### [address] [address] .Auto Diffon 12-23-2022 Basophil, Absolute 0.0 10 3/mcL Normal 0.0-0.3 [facility] ([place]) Comment on above: Performed By: #### M G, CBC, CAION, PHOS, GFR, ADIFF, TROPHS, ANEU, CMP #### [address] [address] Basophils/100 WBC (Bld) 0.2 % Normal 0.0-2.5 A [facility] ([place] Comment on above: Performed By: #### M G, CBC, CAION, PHOS, GFR, ADIFF, TROPHS, ANEU, CMP #### [address] [address] Eosinophil, Absolute 1.7 10 3/mcL High 0.0-0.7 [facility] ([place]) Comment on above: Performed By: #### M G, CBC, CAION, PHOS, GFR, ADIFF, TROPHS, ANEU, CMP #### [address] [address] Eosinophils/100 WBC (Bld) 14.1 % High 0.0-6.0 Pending Sale To [facility] ([place]) Comment on above: Performed By: #### M G, CBC, CAION, PHOS, GFR, ADIFF, TROPHS, ANEU, CMP #### [address] [address] Lymphocyte, Absolute 1.1 10 3/mcL Normal 0.9-4.3 [facility] ([place]) Comment on above: Performed By: #### M G, CBC, CAION, PHOS, GFR, ADIFF, TROPHS, ANEU, CMP #### [address] [address] Lymphocytes/100 WBC (Bld) 9.5 % Low 20.0-40.0 Pending Sale To [facility] ([place]) Comment on above: Performed By: #### M G, CBC, CAION, PHOS, GFR, ADIFF, TROPHS, ANEU, CMP #### [address] [address] Monocyte, Absolute 0.5 10 3/mcL Normal 0.1-1.4 [facility] ([place]) Comment on above: Performed By: #### M G, CBC, CAION, PHOS, GFR, ADIFF, TROPHS, ANEU, CMP #### [address] [address] Monocytes/100 WBC (Bld) 4.2 % Normal 2.0-13.0 A [facility] ([place]) Comment on above: Performed By: #### M G, CBC, CAION, PHOS, GFR, ADIFF, TROPHS, ANEU, CMP #### [address] [address] Neutrophils/100 WBC (Bld) 72.0 % Normal 50.0-75.0 Pending Sale To [facility] ([place]) Comment on above: Performed By: #### M G, CBC, CAION, PHOS, GFR, ADIFF, TROPHS, ANEU, CMP #### [address] [address] .GFRon 12-23-2022 GFR 36 ml/min/1.73sqm Normal Pending [facility] To [facility] ([place] Comment on above: Result Comment: GFR Population mean for , Non- Americans Ages 20-29 = 116 mL/min/1.73 sq.m. Ages 30-39 = 107 mL/min/1.73 sq.m. Ages 40-49 = 99 mL/min/1.73 sq.m. Ages 50-59 = 93 mL/min/1.73 sq.m. Ages 60-69 = 85 mL/min/1.73 sq.m. Ages 70+ = 75 mL/min/1.73 sq.m. Chronic Kidney Disease: Less than 60 mL/min/1.73 square meters End Stage Renal Disease: Less than 15 mL/min/1.73 square meters Performed By: #### M G, CBC, CAION, PHOS, GFR, ADIFF, TROPHS, ANEU, CMP #### [address] [address] GFR Non- 29 ml/min/1.73sqm Normal Pending [facility] To [facility] [place] Comment on above: Result Comment: GFR Population mean for , Non- Americans Ages 20-29 = 116 mL/min/1.73 sq.m. Ages 30-39 = 107 mL/min/1.73 sq.m. Ages 40-49 = 99 mL/min/1.73 sq.m. Ages 50-59 = 93 mL/min/1.73 sq.m. Ages 60-69 = 85 mL/min/1.73 sq.m. Ages 70+ = 75 mL/min/1.73 sq.m. Chronic Kidney Disease: Less than 60 mL/min/1.73 square meters End Stage Renal Disease: Less than 15 mL/min/1.73 square meters Performed By: #### M G, CBC, CAION, PHOS, GFR, ADIFF, TROPHS, ANEU, CMP #### [address] [address] GFR 28 ml/min/1.73sqm Normal Pending Sale To [facility] [place] Comment on above: Result Comment: GFR Population mean for , Non- Americans Ages 20-29 = 116 mL/min/1.73 sq.m. Ages 30-39 = 107 mL/min/1.73 sq.m. Ages 40-49 = 99 mL/min/1.73 sq.m. Ages 50-59 = 93 mL/min/1.73 sq.m. Ages 60-69 = 85 mL/min/1.73 sq.m. Ages 70+ = 75 mL/min/1.73 sq.m. Chronic Kidney Disease: Less than 60 mL/min/1.73 square meters End Stage Renal Disease: Less than 15 mL/min/1.73 square meters Performed By: #### M G, CBC, CAION, PHOS, GFR, ADIFF, TROPHS, ANEU, CMP #### [address] [address] GFR Non- 23 ml/min/1.73sqm Normal Pending Sale To [facility] [place] Comment on above: Result Comment: GFR Population mean for , Non- Americans Ages 20-29 = 116 mL/min/1.73 sq.m. Ages 30-39 = 107 mL/min/1.73 sq.m. Ages 40-49 = 99 mL/min/1.73 sq.m. Ages 50-59 = 93 mL/min/1.73 sq.m. Ages 60-69 = 85 mL/min/1.73 sq.m. Ages 70+ = 75 mL/min/1.73 sq.m. Chronic Kidney Disease: Less than 60 mL/min/1.73 square meters End Stage Renal Disease: Less than 15 mL/min/1.73 square meters Performed By: #### M G, CBC, CAION, PHOS, GFR, ADIFF, TROPHS, ANEU, CMP #### [address] [address] .NEUABSon 12-23-2022 Neutrophil, Absolute 8.6 10 3/mcL High 2.3-8.1 [facility] ([place] Comment on above: Performed By: #### M G, CBC, CAION, PHOS, GFR, ADIFF, TROPHS, ANEU, CMP #### [address] [address] BMPon 12-23-2022 BUN/Creatinine Ratio 22.0 ratio Normal 10.0-22.0 [facility] ([place]) Comment on above: Performed By: #### M G, CBC, CAION, PHOS, GFR, ADIFF, TROPHS, ANEU, CMP #### [place] [address] Calcium [Mass/Vol] 7.4 mg/dL Low 8.7-10.4 [facility] ([place] Comment on above: Performed By: #### M G, CBC, CAION, PHOS, GFR, ADIFF, TROPHS, ANEU, CMP #### [place] [phone] Chloride [Moles/Vol] 105 mmol/L Normal 98-110 [facility] ([place] Comment on above: Performed By: #### M G, CBC, CAION, PHOS, GFR, ADIFF, TROPHS, ANEU, CMP #### [address] [address] CO2 [Moles/Vol] 30 mmol/L Normal 22-32 [facility] ([place]) Comment on above: Performed By: #### M G, CBC, CAION, PHOS, GFR, ADIFF, TROPHS, ANEU, CMP #### [address] [address] Creatinine [Mass/Vol] 1.77 mg/dL High 0.50-1.20 [facility] ([place] Comment on above: Performed By: #### M G, CBC, CAION, PHOS, GFR, ADIFF, TROPHS, ANEU, CMP #### [address] [address] Electrolyte Balance 6.0 mEq/L Normal 4.0-15.0 [facility] ([place] Comment on above: Performed By: #### M G, CBC, CAION, PHOS, GFR, ADIFF, TROPHS, ANEU, CMP #### [address] [address] Glucose [Mass/Vol] 98 mg/dL Normal 70-110 [facility] ([place] Comment on above: Performed By: #### M G, CBC, CAION, PHOS, GFR, ADIFF, TROPHS, ANEU, CMP #### [place] [phone] Potassium [Moles/Vol] 3.0 mmol/L Low 3.5-5.0 [facility] ([place] Comment on above: Result Comment: Spec imen slightly hemolyzed. Performed By: #### M G, CBC, CAION, PHOS, GFR, ADIFF, TROPHS, ANEU, CMP #### [place] [phone] Sodium [Moles/Vol] 141 mmol/L Normal 136-145 [facility] ([place] Comment on above: Performed By: #### M G, CBC, CAION, PHOS, GFR, ADIFF, TROPHS, ANEU, CMP #### [place] [phone] Urea nitrogen [Mass/Vol] 39.0 mg/dL High 8.0-22.0 Pending [facility] To [facility] [place] Comment on above: Performed By: #### M G, CBC, CAION, PHOS, GFR, ADIFF, TROPHS, ANEU, CMP #### [place] [phone] BUN/Creatinine Ratio 21.2 ratio Normal 10.0-22.0 [facility] ([place] Comment on above: Performed By: #### M G, CBC, CAION, PHOS, GFR, ADIFF, TROPHS, ANEU, CMP #### [address] [address] Calcium [Mass/Vol] 7.7 mg/dL Low 8.7-10.4 [facility] [place] Comment on above: Performed By: #### M G, CBC, CAION, PHOS, GFR, ADIFF, TROPHS, ANEU, CMP #### [address] [address] Chloride [Moles/Vol] 105 mmol/L Normal 98-110 [facility] ([place] Comment on above: Performed By: #### M G, CBC, CAION, PHOS, GFR, ADIFF, TROPHS, ANEU, CMP #### [address] [address] CO2 [Moles/Vol] 27 mmol/L Normal 22-32 [facility] ([place] Comment on above: Performed By: #### M G, CBC, CAION, PHOS, GFR, ADIFF, TROPHS, ANEU, CMP #### [place] [phone] Creatinine [Mass/Vol] 2.17 mg/dL High 0.50-1.20 [facility] ([place] Comment on above: Performed By: #### M G, CBC, CAION, PHOS, GFR, ADIFF, TROPHS, ANEU, CMP #### [address] [address] Electrolyte Balance 9.0 mEq/L Normal 4.0-15.0 [facility] ([place] Comment on above: Performed By: #### M G, CBC, CAION, PHOS, GFR, ADIFF, TROPHS, ANEU, CMP #### [address] [address] Glucose [Mass/Vol] 110 mg/dL Normal 70-110 [facility] [place] Comment on above: Performed By: #### M G, CBC, CAION, PHOS, GFR, ADIFF, TROPHS, ANEU, CMP #### [place] [phone] Potassium [Moles/Vol] 2.5 mmol/L Critically abnormal 3.5-5.0 Pending Sale To [facility] [place] Comment on above: Performed By: #### M G, CBC, CAION, PHOS, GFR, ADIFF, TROPHS, ANEU, CMP #### [address] [address] Sodium [Moles/Vol] 141 mmol/L Normal 136-145 [facility] ([place] Comment on above: Performed By: #### M G, CBC, CAION, PHOS, GFR, ADIFF, TROPHS, ANEU, CMP #### [address] [address] Urea nitrogen [Mass/Vol] 46.0 mg/dL High 8.0-22.0 Pending Sale To [facility] [place] Comment on above: Performed By: #### M G, CBC, CAION, PHOS, GFR, ADIFF, TROPHS, ANEU, CMP #### [place] [phone] CBCon 12-23-2022 Erythrocyte distribution width (RBC) [Ratio] 16.3 % High 11.5-15.5 Pending [facility] To [facility] [place] Comment on above: Performed By: #### M G, CBC, CAION, PHOS, GFR, ADIFF, TROPHS, ANEU, CMP #### [place] [address] Hematocrit (Bld) [Volume fraction] 31.1 % Low 34.0-46.0 Pending [facility] To [facility] [place] Comment on above: Performed By: #### M G, CBC, CAION, PHOS, GFR, ADIFF, TROPHS, ANEU, CMP #### [address] [address] Hgb 10.6 G/dL Low 12.0-16.0 Pending [facility] To [facility] ([place] Comment on above: Performed By: #### M G, CBC, CAION, PHOS, GFR, ADIFF, TROPHS, ANEU, CMP #### [address] [address] MCH (RBC) [Entitic mass] 29.6 pg Normal 27.0-33.0 Pending [facility] To [facility] [place] Comment on above: Performed By: #### M G, CBC, CAION, PHOS, GFR, ADIFF, TROPHS, ANEU, CMP #### [place] [address] MCHC 34.2 G/dL Normal 32.0-36.0 Pending [facility] To [facility] [place] Comment on above: Performed By: #### M G, CBC, CAION, PHOS, GFR, ADIFF, TROPHS, ANEU, CMP #### [place] [address] MCV (RBC) [Entitic vol] 86.7 fL Normal 80.0-99.0 A [facility] ([place] Comment on above: Performed By: #### M G, CBC, CAION, PHOS, GFR, ADIFF, TROPHS, ANEU, CMP #### [place] [address] Platelet 142 10 3/mcL Low 150-450 [facility] ([place] Comment on above: Performed By: #### M G, CBC, CAION, PHOS, GFR, ADIFF, TROPHS, ANEU, CMP #### [place] [address] Platelet mean volume (Bld) [Entitic vol] 8.5 fL Normal 6.6-10.5 [facility] ([place] Comment on above: Performed By: #### M G, CBC, CAION, PHOS, GFR, ADIFF, TROPHS, ANEU, CMP #### [place] [address] RBC 3.58 10 6/mcL Low 4.10-5.30 [facility] ([place] Comment on above: Performed By: #### M G, CBC, CAION, PHOS, GFR, ADIFF, TROPHS, ANEU, CMP #### [place] [address] WBC 11.9 10 3/mcL High 4.5-10.8 [facility] ([place] Comment on above: Performed By: #### M G, CBC, CAION, PHOS, GFR, ADIFF, TROPHS, ANEU, CMP #### [place] [address] LACon 12-23-2022 Lactic Acid Lvl 1.7 mmol/L Normal 0.2-2.0 [facility] ([place] Comment on above: Performed By: #### M G, CBC, CAION, PHOS, GFR, ADIFF, TROPHS, ANEU, CMP #### [place] [address] MGon 12-23-2022 Magnesium [Mass/Vol] 2.4 mg/dL Normal 1.6-2.4 [facility] ([place] Comment on above: Performed By: #### M G, CBC, CAION, PHOS, GFR, ADIFF, TROPHS, ANEU, CMP #### [place] [address] PHOSon 12-23-2022 Phosphate [Mass/Vol] 2.0 mg/dL Low 2.4-5.1 [facility] ([place] Comment on above: Result Comment: No te - New Reference Range in effect 19 Performed By: #### M G, CBC, CAION, PHOS, GFR, ADIFF, TROPHS, ANEU, CMP #### [place] [address] TSHon 12-23-2022 TSH 0.407 mIU/mL Low 0.550-4.780 [facility] ([place] Comment on above: Result Comment: No te - New Reference Range in effect 19 Performed By: #### M G, CBC, CAION, PHOS, GFR, ADIFF, TROPHS, ANEU, CMP #### [place] [address] .Auto Diffon 12-22-2022 Basophil, Absolute 0.0 10 3/mcL Normal 0.0-0.3 [facility] ([place] Comment on above: Performed By: #### M G, CBC, CAION, PHOS, GFR, ADIFF, TROPHS, ANEU, CMP #### [place] [address] Basophils/100 WBC (Bld) 0.2 % Normal 0.0-2.5 A [facility] ([place] Comment on above: Performed By: #### M G, CBC, CAION, PHOS, GFR, ADIFF, TROPHS, ANEU, CMP #### [address] [address] Eosinophil, Absolute 0.2 10 3/mcL Normal 0.0-0.7 [facility] ([place]) Comment on above: Performed By: #### M G, CBC, CAION, PHOS, GFR, ADIFF, TROPHS, ANEU, CMP #### [address] [address] Eosinophils/100 WBC (Bld) 1.8 % Normal 0.0-6.0 Pending [facility] To [facility] [place] Comment on above: Performed By: #### M G, CBC, CAION, PHOS, GFR, ADIFF, TROPHS, ANEU, CMP #### [address] [address] Lymphocyte, Absolute 0.4 10 3/mcL Low 0.9-4.3 [facility] ([place]) Comment on above: Performed By: #### M G, CBC, CAION, PHOS, GFR, ADIFF, TROPHS, ANEU, CMP #### [address] [address] Lymphocytes/100 WBC (Bld) 3.4 % Low 20.0-40.0 Pending Sale To [facility] ([place]) Comment on above: Performed By: #### M G, CBC, CAION, PHOS, GFR, ADIFF, TROPHS, ANEU, CMP #### [address] [address] Monocyte, Absolute 0.3 10 3/mcL Normal 0.1-1.4 [facility] ([place] Comment on above: Performed By: #### M G, CBC, CAION, PHOS, GFR, ADIFF, TROPHS, ANEU, CMP #### [address] [address] Monocytes/100 WBC (Bld) 2.1 % Normal 2.0-13.0 A [facility] ([place] Comment on above: Performed By: #### M G, CBC, CAION, PHOS, GFR, ADIFF, TROPHS, ANEU, CMP #### [address] [address] Neutrophils/100 WBC (Bld) 92.5 % High 50.0-75.0 Pending [facility] To [facility] [place] Comment on above: Performed By: #### M G, CBC, CAION, PHOS, GFR, ADIFF, TROPHS, ANEU, CMP #### [address] [address] .GFRon 12-22-2022 GFR 17 ml/min/1.73sqm Normal Pending [facility] To [facility] ([place] Comment on above: Result Comment: GFR Population mean for , Non- Americans Ages 20-29 = 116 mL/min/1.73 sq.m. Ages 30-39 = 107 mL/min/1.73 sq.m. Ages 40-49 = 99 mL/min/1.73 sq.m. Ages 50-59 = 93 mL/min/1.73 sq.m. Ages 60-69 = 85 mL/min/1.73 sq.m. Ages 70+ = 75 mL/min/1.73 sq.m. Chronic Kidney Disease: Less than 60 mL/min/1.73 square meters End Stage Renal Disease: Less than 15 mL/min/1.73 square meters Performed By: #### M G, CBC, CAION, PHOS, GFR, ADIFF, TROPHS, ANEU, CMP #### [address] [address] GFR Non- 14 ml/min/1.73sqm Normal Pending [facility] To [facility] ([place] Comment on above: Result Comment: GFR Population mean for , Non- Americans Ages 20-29 = 116 mL/min/1.73 sq.m. Ages 30-39 = 107 mL/min/1.73 sq.m. Ages 40-49 = 99 mL/min/1.73 sq.m. Ages 50-59 = 93 mL/min/1.73 sq.m. Ages 60-69 = 85 mL/min/1.73 sq.m. Ages 70+ = 75 mL/min/1.73 sq.m. Chronic Kidney Disease: Less than 60 mL/min/1.73 square meters End Stage Renal Disease: Less than 15 mL/min/1.73 square meters Performed By: #### M G, CBC, CAION, PHOS, GFR, ADIFF, TROPHS, ANEU, CMP #### [address] [address] GFR 16 ml/min/1.73sqm Normal Pending [facility] To [facility] ([place] Comment on above: Result Comment: GFR Population mean for , Non- Americans Ages 20-29 = 116 mL/min/1.73 sq.m. Ages 30-39 = 107 mL/min/1.73 sq.m. Ages 40-49 = 99 mL/min/1.73 sq.m. Ages 50-59 = 93 mL/min/1.73 sq.m. Ages 60-69 = 85 mL/min/1.73 sq.m. Ages 70+ = 75 mL/min/1.73 sq.m. Chronic Kidney Disease: Less than 60 mL/min/1.73 square meters End Stage Renal Disease: Less than 15 mL/min/1.73 square meters Performed By: #### M G, CBC, CAION, PHOS, GFR, ADIFF, TROPHS, ANEU, CMP #### [address] [address] GFR Non- 13 ml/min/1.73sqm Normal Pending [facility] To [facility] [place] Comment on above: Result Comment: GFR Population mean for , Non- Americans Ages 20-29 = 116 mL/min/1.73 sq.m. Ages 30-39 = 107 mL/min/1.73 sq.m. Ages 40-49 = 99 mL/min/1.73 sq.m. Ages 50-59 = 93 mL/min/1.73 sq.m. Ages 60-69 = 85 mL/min/1.73 sq.m. Ages 70+ = 75 mL/min/1.73 sq.m. Chronic Kidney Disease: Less than 60 mL/min/1.73 square meters End Stage Renal Disease: Less than 15 mL/min/1.73 square meters Performed By: #### M G, CBC, CAION, PHOS, GFR, ADIFF, TROPHS, ANEU, CMP #### [address] [address] .NEUABSon 12-22-2022 Neutrophil, Absolute 11.5 10 3/mcL High 2.3-8.1 A [facility] [place] Comment on above: Performed By: #### M G, CBC, CAION, PHOS, GFR, ADIFF, TROPHS, ANEU, CMP #### [address] [address] BGon 12-22-2022 Barometric Pressure 708 mmHg Normal [facility] ([place] Comment on above: Performed By: #### B G #### [place] [phone] Base excess Calc (Bld) [Moles/Vol] -7.2000 mmol/L Normal Pending [facility] To [facility] [place] Comment on above: Performed By: #### B G #### [place] [phone] CO2 [Moles/Vol] 16.7 mmol/L Low 22.0-30.0 Pending [facility] To [facility] [place] Comment on above: Performed By: #### B G #### [place] [address] HCO3 (Bld) [Moles/Vol] 15.9 mmol/L Low 21.0-29.0 A [facility] ([place] Comment on above: Performed By: #### B G #### [place] [phone] Oxygen (Bld) [Partial pressure] 86.3 mm[Hg] Normal 74.0-108.0 Pending [facility] To [facility] [place] Comment on above: Performed By: #### B G #### [place] [id number] Oxygen saturation in Blood 96.7 % High 92.0-96.0 Pending [facility] To [facility] [place] Comment on above: Performed By: #### B G #### [place] [phone] pCO2 25.7 mmHg Low 32.0-46.0 Pending Sale To [facility] [place] Comment on above: Performed By: #### B G #### [address] [address] pH (Bld) 7.409 [pH] Normal 7.380-7.460 [facility] ([place] Comment on above: Performed By: #### B G #### [address] [address] BMPon 12-22-2022 BUN/Creatinine Ratio 16.6 ratio Normal 10.0-22.0 [facility] ([place] Comment on above: Performed By: #### M G, CBC, CAION, PHOS, GFR, ADIFF, TROPHS, ANEU, CMP #### [address] [address] Calcium [Mass/Vol] 7.7 mg/dL Low 8.7-10.4 [facility] ([place] Comment on above: Performed By: #### M G, CBC, CAION, PHOS, GFR, ADIFF, TROPHS, ANEU, CMP #### [address] [address] Chloride [Moles/Vol] 112 mmol/L High 98-110 [facility] ([place] Comment on above: Performed By: #### M G, CBC, CAION, PHOS, GFR, ADIFF, TROPHS, ANEU, CMP #### [address] [address] CO2 [Moles/Vol] 17 mmol/L Low 22-32 [facility] ([place] Comment on above: Performed By: #### M G, CBC, CAION, PHOS, GFR, ADIFF, TROPHS, ANEU, CMP #### [address] [address] Creatinine [Mass/Vol] 3.43 mg/dL High 0.50-1.20 [facility] ([place] Comment on above: Performed By: #### M G, CBC, CAION, PHOS, GFR, ADIFF, TROPHS, ANEU, CMP #### [address] [address] Electrolyte Balance 7.0 mEq/L Normal 4.0-15.0 [facility] ([place] Comment on above: Performed By: #### M G, CBC, CAION, PHOS, GFR, ADIFF, TROPHS, ANEU, CMP #### [address] [address] Glucose [Mass/Vol] 104 mg/dL Normal 70-110 [facility] ([place] Comment on above: Performed By: #### M G, CBC, CAION, PHOS, GFR, ADIFF, TROPHS, ANEU, CMP #### [place] [phone] Potassium [Moles/Vol] 3.0 mmol/L Low 3.5-5.0 [facility] ([place] Comment on above: Result Comment: Spec imen slightly hemolyzed. Performed By: #### M G, CBC, CAION, PHOS, GFR, ADIFF, TROPHS, ANEU, CMP #### [place] [phone] Sodium [Moles/Vol] 136 mmol/L Normal 136-145 [facility] ([place] Comment on above: Performed By: #### M G, CBC, CAION, PHOS, GFR, ADIFF, TROPHS, ANEU, CMP #### [place] [id number] Urea nitrogen [Mass/Vol] 57.0 mg/dL High 8.0-22.0 Pending [facility] To [facility] [place] Comment on above: Performed By: #### M G, CBC, CAION, PHOS, GFR, ADIFF, TROPHS, ANEU, CMP #### [address] [address] CAIONon 12-22-2022 Calcium Ionized 0.99 mmol/L Low 1.12-1.32 Pending [facility] To [facility] [place] Comment on above: Performed By: #### M G, CBC, CAION, PHOS, GFR, ADIFF, TROPHS, ANEU, CMP #### [address] [address] CBCon 12-22-2022 Erythrocyte distribution width (RBC) [Ratio] 16.0 % High 11.5-15.5 Pending [facility] To [facility] [place] Comment on above: Performed By: #### M G, CBC, CAION, PHOS, GFR, ADIFF, TROPHS, ANEU, CMP #### [place] [address] Hematocrit (Bld) [Volume fraction] 36.6 % Normal 34.0-46.0 Pending [facility] To [facility] [place] Comment on above: Performed By: #### M G, CBC, CAION, PHOS, GFR, ADIFF, TROPHS, ANEU, CMP #### [place] [address] Hgb 12.4 G/dL Normal 12.0-16.0 P[facility] To [facility] [place] Comment on above: Performed By: #### M G, CBC, CAION, PHOS, GFR, ADIFF, TROPHS, ANEU, CMP #### [place] [address] MCH (RBC) [Entitic mass] 29.7 pg Normal 27.0-33.0 Pending [facility] To [facility] [place] Comment on above: Performed By: #### M G, CBC, CAION, PHOS, GFR, ADIFF, TROPHS, ANEU, CMP #### [place] [address] MCHC 33.9 G/dL Normal 32.0-36.0 Pending Sale To [facility] ([place]) Comment on above: Performed By: #### M G, CBC, CAION, PHOS, GFR, ADIFF, TROPHS, ANEU, CMP #### [place] [address] MCV (RBC) [Entitic vol] 87.7 fL Normal 80.0-99.0 A [facility] ([place]) Comment on above: Performed By: #### M G, CBC, CAION, PHOS, GFR, ADIFF, TROPHS, ANEU, CMP #### [place] [address] Platelet 143 10 3/mcL Low 150-450 [facility] ([place]) Comment on above: Performed By: #### M G, CBC, CAION, PHOS, GFR, ADIFF, TROPHS, ANEU, CMP #### [place] [address] Platelet mean volume (Bld) [Entitic vol] 8.4 fL Normal 6.6-10.5 [facility] ([place]) Comment on above: Performed By: #### M G, CBC, CAION, PHOS, GFR, ADIFF, TROPHS, ANEU, CMP #### [place] [address] RBC 4.18 10 6/mcL Normal 4.10-5.30 [facility] ([place]) Comment on above: Performed By: #### M G, CBC, CAION, PHOS, GFR, ADIFF, TROPHS, ANEU, CMP #### [place] [address] WBC 12.4 10 3/mcL High 4.5-10.8 [facility] ([place]) Comment on above: Performed By: #### M G, CBC, CAION, PHOS, GFR, ADIFF, TROPHS, ANEU, CMP #### [place] [address] CMPon 12-22-2022 Albumin Level 2.5 G/dL Low 3.2-4.8 [facility] ([place]) Comment on above: Performed By: #### M G, CBC, CAION, PHOS, GFR, ADIFF, TROPHS, ANEU, CMP #### [place] [address] Albumin/Globulin [Mass ratio] 0.8 {ratio} Low 0.9-1.6 Pending Sale To [facility] ([place]) Comment on above: Performed By: #### M G, CBC, CAION, PHOS, GFR, ADIFF, TROPHS, ANEU, CMP #### [place] [address] ALP [Catalytic activity/Vol] 56 U/L Normal 38-126 Pending Sale To [facility] ([place]) Comment on above: Performed By: #### M G, CBC, CAION, PHOS, GFR, ADIFF, TROPHS, ANEU, CMP #### [address] [address] ALT [Catalytic activity/Vol] 25 U/L Normal 10-49 Pending Sale To [facility] ([place]) Comment on above: Performed By: #### M G, CBC, CAION, PHOS, GFR, ADIFF, TROPHS, ANEU, CMP #### [address] [id number] AST [Catalytic activity/Vol] 49 U/L High 8-34 Pending Sale To [facility] ([place]) Comment on above: Performed By: #### M G, CBC, CAION, PHOS, GFR, ADIFF, TROPHS, ANEU, CMP #### [address] [address] Bili Total 0.50 mg/dL Normal 0.20-1.20 Pending Sale To [facility] ([place]) Comment on above: Result Comment: Use of this assay is not recommended for patients undergoing treatment with eltrombopag due to the potential for falsely elevated results. Performed By: #### M G, CBC, CAION, PHOS, GFR, ADIFF, TROPHS, ANEU, CMP #### [address] [address] BUN/Creatinine Ratio 14.1 ratio Normal 10.0-22.0 [facility] ([place]) Comment on above: Performed By: #### M G, CBC, CAION, PHOS, GFR, ADIFF, TROPHS, ANEU, CMP #### [address] [address] Calcium [Mass/Vol] 7.5 mg/dL Low 8.7-10.4 [facility] ([place]) Comment on above: Performed By: #### M G, CBC, CAION, PHOS, GFR, ADIFF, TROPHS, ANEU, CMP #### [address] [address] Chloride [Moles/Vol] 111 mmol/L High 98-110 [facility] ([place]) Comment on above: Performed By: #### M G, CBC, CAION, PHOS, GFR, ADIFF, TROPHS, ANEU, CMP #### [address] [address] CO2 [Moles/Vol] 16 mmol/L Low 22-32 [facility] ([place]) Comment on above: Performed By: #### M G, CBC, CAION, PHOS, GFR, ADIFF, TROPHS, ANEU, CMP #### [address] [address] Creatinine [Mass/Vol] 3.54 mg/dL High 0.50-1.20 [facility] ([place]) Comment on above: Performed By: #### M G, CBC, CAION, PHOS, GFR, ADIFF, TROPHS, ANEU, CMP #### [address] [address] Electrolyte Balance 11.0 mEq/L Normal 4.0-15.0 [facility] ([place]) Comment on above: Performed By: #### M G, CBC, CAION, PHOS, GFR, ADIFF, TROPHS, ANEU, CMP #### [address] [address] Globulin 3.1 G/dL Normal 1.5-3.8 Pending [facility] ([place] Comment on above: Performed By: #### M G, CBC, CAION, PHOS, GFR, ADIFF, TROPHS, ANEU, CMP #### [address] [address] Glucose [Mass/Vol] 112 mg/dL High 70-110 [facility] ([place]) Comment on above: Performed By: #### M G, CBC, CAION, PHOS, GFR, ADIFF, TROPHS, ANEU, CMP #### [address] [address] Potassium [Moles/Vol] 3.6 mmol/L Normal 3.5-5.0 [facility] ([place]) Comment on above: Result Comment: Spec imen slightly hemolyzed. Performed By: #### M G, CBC, CAION, PHOS, GFR, ADIFF, TROPHS, ANEU, CMP #### [address] [address] Sodium [Moles/Vol] 138 mmol/L Normal 136-145 [facility] ([place]) Comment on above: Performed By: #### M G, CBC, CAION, PHOS, GFR, ADIFF, TROPHS, ANEU, CMP #### [address] [address] Total Protein 5.6 G/dL Low 5.7-8.2 [facility] ([place]) Comment on above: Result Comment: No te - New Reference Range in effect 19 Performed By: #### M G, CBC, CAION, PHOS, GFR, ADIFF, TROPHS, ANEU, CMP #### [address] [address] Urea nitrogen [Mass/Vol] 50.0 mg/dL High 8.0-22.0 Pending [facility] ([place] Comment on above: Performed By: #### M G, CBC, CAION, PHOS, GFR, ADIFF, TROPHS, ANEU, CMP #### [address] [address] LAC 12-22-2022 Lactic Acid Lvl 2.4 mmol/L High 0.2-2.0 [facility] ([place]) Comment on above: Order Comment: Order ed secondary to Lactic Acid result greater than or equal to 2.0 Performed By: #### M G, CBC, CAION, PHOS, GFR, ADIFF, TROPHS, ANEU, CMP #### [place] [address] Lactic Acid Lvl 2.2 mmol/L High 0.2-2.0 [facility] ([place]) Comment on above: Performed By: #### M G, CBC, CAION, PHOS, GFR, ADIFF, TROPHS, ANEU, CMP #### [address] [address] MG 12-22-2022 Magnesium [Mass/Vol] 1.3 mg/dL Low 1.6-2.4 [facility] ([place]) Comment on above: Performed By: #### M G, CBC, CAION, PHOS, GFR, ADIFF, TROPHS, ANEU, CMP #### [place] [id number] NAURon 12-22-2022 Sodium [Moles/Vol] 26 mmol/L Normal [facility] ([place]) Comment on above: Performed By: #### M G, CBC, CAION, PHOS, GFR, ADIFF, TROPHS, ANEU, CMP #### [place] [address] OSMOSon 12-22-2022 Osmolality [Osmolality] 298 mosm/kg Normal 275-300 Pending [facility] ([place] Comment on above: Performed By: #### M G, CBC, CAION, PHOS, GFR, ADIFF, TROPHS, ANEU, CMP #### [place] [address] OSMOUon 12-22-2022 U Osmolality 359 mOsm/kg Low 390-1090 [facility] ([place]) Comment on above: Performed By: #### M G, CBC, CAION, PHOS, GFR, ADIFF, TROPHS, ANEU, CMP #### [place] [address] PHOSon 12-22-2022 Phosphate [Mass/Vol] 2.1 mg/dL Low 2.4-5.1 [facility] ([place]) Comment on above: Result Comment: No te - New Reference Range in effect 19 Performed By: #### M G, CBC, CAION, PHOS, GFR, ADIFF, TROPHS, ANEU, CMP #### [place] [address] TROPHSon 12-22-2022 Troponin I High Sensitivity 110.49 ng/L High 0.00-34.00 P[facility] ([place] Comment on above: Performed By: #### M G, CBC, CAION, PHOS, GFR, ADIFF, TROPHS, ANEU, CMP #### [place] [address] Troponin I High Sensitivity 155.12 ng/L High 0.00-34.00 Pending [facility] ([place] Comment on above: Performed By: #### M G, CBC, CAION, PHOS, GFR, ADIFF, TROPHS, ANEU, CMP #### [address] [address] UAon 12-22-2022 Color (U) Yellow Normal P[facility] [place] Comment on above: Performed By: #### M G, CBC, CAION, PHOS, GFR, ADIFF, TROPHS, ANEU, CMP #### [place] [address] Glucose (U) [Mass/Vol] Negative Normal Negative [facility] ([place]) Comment on above: Performed By: #### M G, CBC, CAION, PHOS, GFR, ADIFF, TROPHS, ANEU, CMP #### [place] [address] Ketones Ql (U) Trace Normal Neg-Trace [facility] ([place]) Comment on above: Performed By: #### M G, CBC, CAION, PHOS, GFR, ADIFF, TROPHS, ANEU, CMP #### [place] [address] UA Appear Cloudy Abnormal Clear Pending [facility] [place] Comment on above: Performed By: #### M G, CBC, CAION, PHOS, GFR, ADIFF, TROPHS, ANEU, CMP #### [place] [phone] UA Blood Large Abnormal Neg-Trace Pending [facility] ([place] Comment on above: Performed By: #### M G, CBC, CAION, PHOS, GFR, ADIFF, TROPHS, ANEU, CMP #### [place] [phone] UA Leuk Est Moderate Abnormal Negative [facility] ([place]) Comment on above: Performed By: #### M G, CBC, CAION, PHOS, GFR, ADIFF, TROPHS, ANEU, CMP #### [place] [address] UA Nitrite Negative Normal Negative Pending [facility] [place] Comment on above: Performed By: #### M G, CBC, CAION, PHOS, GFR, ADIFF, TROPHS, ANEU, CMP #### [address] [address] UA pH 5.0 Normal 5.0 - 8.0 P[facility] [place] Comment on above: Performed By: #### M G, CBC, CAION, PHOS, GFR, ADIFF, TROPHS, ANEU, CMP #### [place] [address] UA Protein 100 mg/dL Abnormal Negative P[facility] ([place] Comment on above: Performed By: #### M G, CBC, CAION, PHOS, GFR, ADIFF, TROPHS, ANEU, CMP #### [place] [address] UA Spec Grav 1.020 Normal 1.006-1.029 [facility] ([place] Comment on above: Performed By: #### M G, CBC, CAION, PHOS, GFR, ADIFF, TROPHS, ANEU, CMP #### [place] [address] UA Specimen Type Clean Catch Normal Pending [facility] [place] Comment on above: Performed By: #### M G, CBC, CAION, PHOS, GFR, ADIFF, TROPHS, ANEU, CMP #### [place] [address] UA Urobilinogen 1.0 E.U./dL Normal 0.2-1.0 Pending [facility] [place] Comment on above: Performed By: #### M G, CBC, CAION, PHOS, GFR, ADIFF, TROPHS, ANEU, CMP #### [place] [address] Urobilinogen (U) [Mass/Vol] Negative Normal Neg-Trace P[facility] [place] Comment on above: Performed By: #### M G, CBC, CAION, PHOS, GFR, ADIFF, TROPHS, ANEU, CMP #### [place] [address] UAMICon 12-22-2022 UA Amorphus 1+ /hpf Normal [facility] ([place] Comment on above: Performed By: #### M G, CBC, CAION, PHOS, GFR, ADIFF, TROPHS, ANEU, CMP #### [address] [address] UA Bacteria Trace Abnormal Negative [facility] ([place] Comment on above: Performed By: #### M G, CBC, CAION, PHOS, GFR, ADIFF, TROPHS, ANEU, CMP #### [address] [address] UA Coarse Granular Casts 0-2 Abnormal P[facility] [place] Comment on above: Performed By: #### M G, CBC, CAION, PHOS, GFR, ADIFF, TROPHS, ANEU, CMP #### [address] [address] UA Mucous 1+ /hpf Normal P[facility] [place] Comment on above: Performed By: #### M G, CBC, CAION, PHOS, GFR, ADIFF, TROPHS, ANEU, CMP #### [address] [address] UA RBC 0-2 Normal 0-2 Pending [facility] ([place] Comment on above: Performed By: #### M G, CBC, CAION, PHOS, GFR, ADIFF, TROPHS, ANEU, CMP #### [address] [address] UA Squam Epithelial 0-2 Normal 0-20 [facility] ([place] Comment on above: Performed By: #### M G, CBC, CAION, PHOS, GFR, ADIFF, TROPHS, ANEU, CMP #### [address] [address] UA Transitional Epithelial 3-5 Normal P[facility] ([place] Comment on above: Performed By: #### M G, CBC, CAION, PHOS, GFR, ADIFF, TROPHS, ANEU, CMP #### [address] [address] UA WBC 5-10 Abnormal 0-5 Pending [facility] ([place] Comment on above: Performed By: #### M G, CBC, CAION, PHOS, GFR, ADIFF, TROPHS, ANEU, CMP #### [place] [address] US RENALon 12-22-2022 US RENAL ORIGINAL EXAMINATION: ULTRASOUND OF THE KIDNEYS 12/22/2022 2:54 am COMPARISON: CT abdomen and pelvis on 12/21/2022. HISTORY: ORDERING SYSTEM PROVIDED HISTORY: Reason for Exam: MJ FINDINGS: The right kidney measures 10.4 x 5.7 x 5.8 cm. The left kidney is 11.2 x 4.6 x 6.2 cm. Renal cortex has normal thickness and echogenicity in both kidneys. There is no hydronephrosis or evidence of nephrolithiasis. No renal lesion is present. There is no perinephric abnormality. No ascites is seen. The urinary bladder is empty with a Carrera catheter in place. IMPRESSION: Unremarkable ultrasound of the kidneys. Interpreted by: Jason Richards MD Preliminary Report By: Jason Richards MD Electronically signed By Jason Richards MD Dictated Date: 12/22/2022 2:57:31 AM Prelim Date: 12/22/2022 2:59:29 AM Sign Date: 12/22/2022 2:59:29 AM Ordering Provider: YAW Chavez P[facility] [place] XR CHEST 1 VIEWon 12-22-2022 XR CHEST 1 VIEW ORIGINAL EXAMINATION: ONE XRAY VIEW OF THE CHEST 12/22/2022 6:45 am COMPARISON: Chest x-ray 12/21/2022 HISTORY: ORDERING SYSTEM PROVIDED HISTORY: Reason for Exam: Chest Pain FINDINGS: Stable cardiomediastinal silhouette. Streaky right basilar airspace opacity is noted and favored to represent atelectasis. No significant vascular congestion, pleural effusion, pneumothorax. No acute osseous abnormality IMPRESSION: Mild right basilar streaky opacity likely atelectasis. Otherwise no acute process. I have personally reviewed the images of this examination, and agree with the resident's findings and interpretation. Interpreted by: Jason Richards MD Preliminary Report By: Ree Weaver Electronically signed By Jason Richards MD Dictated Date: 12/22/2022 7:03:06 AM Prelim Date: 12/22/2022 7:20:13 AM Sign Date: 12/22/2022 7:20:13 AM Ordering Provider: YAW Chavez Pending [facility] ([place] ARTERIAL BLOOD GAS ANALYSISo n 12-21-2022 ALLENS TEST + Normal [facility] Comment on above: Result Comment: { TI ME CALLED [phone] Performed By: #### 2 01113 #### [facility],[address] [place] [address] ARTERIAL BLOOD GAS ANALYSIS Normal [facility] Comment on above: Result Comment: VALERY RIAL BLOOD GAS Performed By: #### 2 04947 #### [facility],[address] [place] [address] BE -10 Low -2 - 3 [facility] Comment on above: Performed By: #### 2 38222 #### [facility],[address] [place] [address] HCO3 (Bld) [Moles/Vol] 14 mmol/L Low 20 - 24 [facility] Comment on above: Performed By: #### 2 18373 #### [facility],[address] [place] [address] Heart rate 88 /min Normal [facility] Comment on above: Performed By: #### 2 90647 #### [facility],[address] [place] [address] MODALITY none Normal [facility] Comment on above: Performed By: #### 2 84539 #### [facility],[address] [place] [address] PCO2 22 mm Hg Low 35 - 45 [facility] Comment on above: Performed By: #### 2 04458 #### [facility],[address] [place] [address] pH (Bld) 7.42 [pH] Normal 7.35 - 7.45 [facility] Comment on above: Performed By: #### 2 63994 #### [facility],[address] [place] [address] PO2 80 mm Hg Normal 80 - 105 [facility] Comment on above: Performed By: #### 2 17864 #### [facility],[address] [place] [address] SAMPLE SITE r brach Normal [facility] Comment on above: Performed By: #### 2 49502 #### [facility],[address] [place] [address] SaO2 96 Normal 95 - 98 [facility] Comment on above: Result Comment: TIME RESULT CALLED _[id number] 12/21/22.1855.JLH. { FIO2/LPM .21 Performed By: #### 2 98237 #### [facility],[address] [place] [address] TOTAL RR 38 Normal [facility] Comment on above: Performed By: #### 2 62598 #### [facility],[address] [place] [address] VENT N/A Normal [facility] Comment on above: Performed By: #### 2 23593 #### [facility],[address] [place] [address] Bacteria Ur Culton 3 Bacteria identified Cx Nom (U) ORGANISM ID: 1 >=100,000 CFU/ml Escherichia coli ORGANISM ID: 1 (ESCHERICHIA COLI) ANTIBIOTIC INTERPRETATION CHACE STATUS REFERENCE RANGE Ampicillin R >=32 F Susceptible <=8 , Intermediate >8 , Resistant >16 Cefazolin S <=4 F Susceptible 0-16 , Intermediate <0 or >16 , Resistant >16 Ceftriaxone S <=1 F Susceptible <=1 , Intermediate >1 , Resistant >=4 Cefepime S <=1 F Susceptible <=2 , Susceptible-Dose Dependent >2 , Resistant >=16 Ertapenem S <=0.5 F Susceptible <=0.5 , Intermediate >.5 , Resistant >1 Meropenem S <=0.25 F Susceptible <=1 , Intermediate >1 , Resistant >2 Ampicillin/Sulbact S 4 F Susceptible <=8 , Intermediate >8 , Resistant >16 Piperacillin/Tazobac S <=4 F Susceptible <=16 , Intermediate >16 , Resistant >64 Gentamicin S <=1 F Susceptible <=4 , Intermediate >4 , Resistant >8 Tobramycin S <=1 F Susceptible <=4 , Intermediate >4 , Resistant >8 Trimeth sulfameth S <=20 F Susceptible <=40 , Resistant >40 Ciprofloxacin S <=0.25 F Susceptible <0.5 , Intermediate >=.5 , Resistant >=1 Nitrofurantoin S <=16 F Susceptible <=32 , Intermediate >32 , Resistant >64 Abnormal [place] Comment on above: Performed By: #### 6 30-4 #### [facility] CLIA [id number] [address] [place] [address] [place] CBC + DIFFon 12-21-2022 Baso # 0.10 x10EE3/UL Normal 0.00 - 0.10 [facility] Comment on above: Performed By: #### 2 02821 #### [address] [address] Basophils/100 WBC (Bld) 0.3 % Normal 0.0 - 2.0 [facility] Comment on above: Performed By: #### 2 84941 #### [facility],[address] [place], [place] [id number] CBC + DIFF Normal [facility] Comment on above: Result Comment: CBC- COMPLETE BLOOD COUNT Performed By: #### 2 99302 #### [facility],[address] [place] [address] EO # 0.20 x10EE3/UL Normal 0.00 - 0.50 [facility] Comment on above: Performed By: #### 2 48996 #### [facility],[address] [place], [place] [phone] Eosinophils/100 WBC (Bld) 0.9 % Normal 0.0 - 7.0 [facility] Comment on above: Performed By: #### 2 08577 #### [facility],[address] [place], [place] [phone] Erythrocyte distribution width (RBC) [Ratio] 16.3 % High 12.0 - 15.6 [facility] Comment on above: Performed By: #### 2 45979 #### [facility],[address] [place], [place] [address] Hematocrit (Bld) [Volume fraction] 41.5 % Normal 34.0 - 46.0 [facility] Comment on above: Performed By: #### 2 03567 #### [facility],[address] [place] [address] Hemoglobin (Bld) [Mass/Vol] 13.8 g/dL Normal 12.0 - 16.0 [facility] Comment on above: Performed By: #### 2 98759 #### [facility],[address] [place] [address] Lymph # 0.30 x10EE3/UL Low 0.80 - 2.80 [facility] Comment on above: Performed By: #### 2 34573 #### [facility],[address] [place] [address] Lymphocytes/100 WBC (Bld) 1.8 % Low 20.0 - 45.0 [facility] Comment on above: Performed By: #### 2 03970 #### [facility],[address] [place] [address] Lymphocytes/100 WBC (Bld) 1 % Low 20 - 40 [facility] Comment on above: Performed By: #### 2 56675 #### [facility],[address] [place] [address] MANUAL DIFF SEE BELOW Normal [facility] Comment on above: Performed By: #### 2 85323 #### [facility],[address] [place] [address] MCH (RBC) [Entitic mass] 29 pg Normal 27 - 33 [facility] Comment on above: Performed By: #### 2 87093 #### [facility],[address] [place], [place] [id number] MCHC 33 X10 3 Normal 32 - 36 [facility] Comment on above: Performed By: #### 2 12473 #### [facility],[address] [place] [address] MCV (RBC) [Entitic vol] 88 fL Normal 80 - 99 [facility] Comment on above: Performed By: #### 2 00748 #### [facility],[address] [place] [address] Morrill # 0.40 x10EE3/UL Normal 0.20 - 1.00 [facility] Comment on above: Performed By: #### 2 00233 #### [facility],[address] [place] [address] MONOS 2 % Normal 0 - 8 [facility] Comment on above: Performed By: #### 2 70838 #### [facility],[address] [place] [address] MONOS % 2.1 % Normal 0.0 - 10.0 [facility] Comment on above: Performed By: #### 2 15445 #### [facility],[address] [place] [address] Morphology Madi (Bld) [Interp] N/A Normal [facility] Comment on above: Performed By: #### 2 15685 #### [facility],[address] [place] [address] Neut # 17.10 x10EE3/UL High 1.50 - 7.10 [facility] Comment on above: Performed By: #### 2 50836 #### [facility],[address] [place] [address] Neutrophils/100 WBC (Bld) 94.9 % High 46.0 - 76.0 [facility] Comment on above: Performed By: #### 2 44651 #### [facility],[address] [place] [address] PLATELET 220 x10EE3/UL Normal 150 - 450 [facility] Comment on above: Performed By: #### 2 26059 #### [facility],[address] [place] [address] Platelet mean volume (Bld) [Entitic vol] 7.7 fL Normal 6.6 - 10.5 [facility] Comment on above: Result Comment: AUTO MATED DIFFERENTIAL Performed By: #### 2 08010 #### [facility],[address] [place] [address] RBC 4.73 x 10EE6/UL Normal 4.10 - 5.30 [facility] Comment on above: Performed By: #### 2 92160 #### [facility],[address] [place] [address] SEGS 97 % High 50 - 70 [facility] Comment on above: Performed By: #### 2 11753 #### [facility],[address] [place] [address] WBC 18.0 x 10EE3/UL High 4.5 - 10.8 [facility] Comment on above: Performed By: #### 2 69633 #### [facility],[address] [place] [address] CHEST 1 VIEWon 12-21-2022 CHEST [address] [address] Patient: CHAD PATNOJA Phone#: : 1965 Age: 57 Gender: F Pt. Type: ER Account: [id number] Location: [facility] Ordering: CY VILLANUEVA Exam Date: 12/21/2022/16:24 Family Phys: ISAIAS DANIEL Charge Code: 573744 Physician: [place] Order #: [id number] Dose#: PROCEDURE: X-RAY CHEST 1 VIEW COMPARISON: [facility], CT, ABDOMEN/PELVIS W/O CON, 12/21/2022, 17:48. [facility], XR, CHEST 1 VIEW, 12/17/2019, 20:51. INDICATIONS: Sepsis FINDINGS: LUNGS: Normal. No significant pulmonary parenchymal abnormalities. VASCULATURE: Normal. Unremarkable pulmonary vasculature. CARDIAC: Normal. No cardiac silhouette abnormality or cardiomegaly. MEDIASTINUM: Normal. No visible mass or adenopathy. PLEURA: Normal. No effusion or pleural thickening. BONES: Normal. No fracture or visible bony lesion. OTHER: Monitoring leads project across the thorax. Radiopaque object projects to the right of midline at the lung bases, likely external to the patient on there are clothing. CONCLUSION: No acute pulmonary parenchymal abnormality Dictated by: Kera Hawkins MD on 12/22/2022 at 15:03 Approved by: Kera Hawkins MD on 12/22/2022 at 15:40 Normal [facility] CMP with eGFRon 12-21-2022 AGE 57 years Normal [facility] Comment on above: Performed By: #### 2 00561 #### [facility],[address] [place] [address] Albumin [Mass/Vol] 2.3 g/dL Low 3.4 - 5.0 [facility] Comment on above: Performed By: #### 2 48125 #### [facility],[address] [place] [address] Albumin/Globulin [Mass ratio] 0.6 {ratio} Low 0.9 - 1.6 [facility] Comment on above: Performed By: #### 2 11245 #### [facility],[address] [place] [address] ALK PHOS 62 U/L Normal 46 - 116 [facility] Comment on above: Performed By: #### 2 16853 #### [facility],[address] [place] [address] ALT [Catalytic activity/Vol] 25 U/L Normal 14 - 59 [facility] Comment on above: Performed By: #### 2 97930 #### [facility],[address] [place] [address] Anion gap [Moles/Vol] 17 mmol/L Normal 10 - 20 [facility] Comment on above: Performed By: #### 2 28300 #### [facility],[address] [place] [address] AST [Catalytic activity/Vol] 48 U/L High 13 - 39 [facility] Comment on above: Performed By: #### 2 67795 #### [facility],[address] [place] [address] B/C RATIO 12 ratio Normal 0 - 30 [facility] Comment on above: Performed By: #### 2 33408 #### [facility],[address] [place] [address] Bilirubin [Mass/Vol] 0.6 mg/dL Normal 0.2 - 1.0 [facility] Comment on above: Performed By: #### 2 17735 #### [facility],[address] [place] [address] Calcium [Mass/Vol] 7.7 mg/dL Low 8.5 - 10.1 [facility] Comment on above: Performed By: #### 2 05257 #### [facility],[address] [place] [address] Chloride [Moles/Vol] 92 mmol/L Low 98 - 107 [facility] Comment on above: Performed By: #### 2 10777 #### [facility],[address] [place] [address] CMP with eGFR Normal [facility] Comment on above: Result Comment: COMP REHENSIVE METABOLIC PANEL Performed By: #### 2 36881 #### [facility],[address] [place] [address] CO2 [Moles/Vol] 16.4 mmol/L Low 21.0 - 32.0 [facility] Comment on above: Performed By: #### 2 76023 #### [facility],[address] [place], [place] [phone] Creatinine [Mass/Vol] 3.96 mg/dL High 0.55 - 1.02 [facility] Comment on above: Performed By: #### 2 10980 #### [facility],[address] [place] [address] eGFR 12 ML/MINUTE Low 60 - 999 [facility] Comment on above: Performed By: #### 2 96952 #### [facility],[address] [place] [address] 83960 eGFR(AA) 14 ML/MINUTE Low 60 - 999 [facility] Comment on above: Result Comment: ACCO RDING TO THE NATIONAL KIDNEY DISEASE EDUCATION PROGRAM(NKDE), A NORMAL eGFR IS A VALUE GREATER THAN OR EQUAL TO 60 ML/MIN/1.73 SQ METERS. CHRONIC KIDNEY DISEASE: <60mL/MIN/1.73 SQ METERS KIDNEY FAILURE: <15mL/MIN/1.73 SQ METERS THIS TEST SHOULD ONLY BE USED FOR PATIENTS 18 YEARS OF AGE AND OLDER. Performed By: #### 2 [id number] #### [facility],[address],[place] [address] Globulin (S) [Mass/Vol] 4.0 g/dL High 1.5 - 3.8 [facility] Comment on above: Performed By: #### 2 33666 #### [facility],[address] [place] [address] 43253 Glucose [Mass/Vol] 116 mg/dL High 74 - 106 [facility] Comment on above: Performed By: #### 2 71645 #### [facility],[address] [place] [address] 56569 Potassium [Moles/Vol] 2.5 mmol/L Critically low 3.5 - 5.1 [facility] Comment on above: Result Comment: { CA LLED TO DOMINICK AT 190/HM { READ BACK BY RA DOMINICK 1908 Performed By: #### 2 06711 #### [facility],[address] [place] [address] 51615 Protein [Mass/Vol] 6.3 g/dL Low 6.4 - 8.2 [facility] Comment on above: Performed By: #### 2 12463 #### [facility],[address] [place] [address] 08130 Sodium [Moles/Vol] 123 mmol/L Low 136 - 145 [facility] Comment on above: Performed By: #### 2 29429 #### [facility],[address] [place] [address] 63544 Urea nitrogen [Mass/Vol] 49 mg/dL High 7 - 18 [facility] Comment on above: Performed By: #### 2 42676 #### [facility],[address] [place] [address] 29047 AGE 57 years Normal [facility] Comment on above: Performed By: #### 2 87683 #### [facility],[address] [place] [address] 78032 Albumin [Mass/Vol] 2.5 g/dL Low 3.4 - 5.0 [facility] Comment on above: Performed By: #### 2 68344 #### [facility],[address] [place] [address] 28040 Albumin/Globulin [Mass ratio] 0.6 {ratio} Low 0.9 - 1.6 [facility] Comment on above: Performed By: #### 2 01704 #### [facility],[address] [place] [address] 24107 ALK PHOS 70 U/L Normal 46 - 116 [facility] Comment on above: Performed By: #### 2 31035 #### [facility],[address] [place] [address] 79085 ALT [Catalytic activity/Vol] 29 U/L Normal 14 - 59 [facility] Comment on above: Performed By: #### 2 24068 #### [facility],[address] [place] [address] 53428 Anion gap [Moles/Vol] 20 mmol/L Normal 10 - 20 [facility] Comment on above: Performed By: #### 2 18797 #### [facility],[address] [place] [address] 34495 AST [Catalytic activity/Vol] 47 U/L High 13 - 39 [facility] Comment on above: Performed By: #### 2 95654 #### [facility],[address] [place] [address] 76556 B/C RATIO 11 ratio Normal 0 - 30 [facility] Comment on above: Performed By: #### 2 26707 #### [facility],[address] [place] [address] 09047 Bilirubin [Mass/Vol] 0.6 mg/dL Normal 0.2 - 1.0 [facility] Comment on above: Performed By: #### 2 62256 #### [facility],[address] [place] [address] 19406 Calcium [Mass/Vol] 8.0 mg/dL Low 8.5 - 10.1 [facility] Comment on above: Performed By: #### 2 81837 #### [facility],[address] [place] [address] 72260 Chloride [Moles/Vol] 98 mmol/L Normal 98 - 107 [facility] Comment on above: Performed By: #### 2 04107 #### [facility],[address] [place] [address] 93407 CMP with eGFR Normal [facility] Comment on above: Result Comment: COMP REHENSIVE METABOLIC PANEL Performed By: #### 2 60455 #### [facility],[address] [place] [address] 49387 CO2 [Moles/Vol] 17.8 mmol/L Low 21.0 - 32.0 [facility] Comment on above: Performed By: #### 2 77576 #### [facility],[address] [place] [address] 17092 Creatinine [Mass/Vol] 4.41 mg/dL High 0.55 - 1.02 [facility] Comment on above: Performed By: #### 2 69162 #### [facility],[address] [place] [address] 00239 eGFR 10 ML/MINUTE Low 60 - 999 [facility] Comment on above: Performed By: #### 2 37362 #### [facility],[address] [place] [address] 27564 eGFR(AA) 12 ML/MINUTE Low 60 - 999 [facility] Comment on above: Result Comment: ACCO RDING TO THE NATIONAL KIDNEY DISEASE EDUCATION PROGRAM(NKDE), A NORMAL eGFR IS A VALUE GREATER THAN OR EQUAL TO 60 ML/MIN/1.73 SQ METERS. CHRONIC KIDNEY DISEASE: <60mL/MIN/1.73 SQ METERS KIDNEY FAILURE: <15mL/MIN/1.73 SQ METERS THIS TEST SHOULD ONLY BE USED FOR PATIENTS 18 YEARS OF AGE AND OLDER. Performed By: #### 2 56243 #### [facility],[address] [place] [address] 87427 Globulin (S) [Mass/Vol] 4.3 g/dL High 1.5 - 3.8 [facility] Comment on above: Performed By: #### 2 45068 #### [facility],[address] [place] [address] 95746 Glucose [Mass/Vol] 201 mg/dL High 74 - 106 [facility] Comment on above: Performed By: #### 2 35417 #### [facility],[address] [place] [address] 95166 Potassium [Moles/Vol] 2.4 mmol/L Critically low 3.5 - 5.1 [facility] Comment on above: Result Comment: { CA LLED TO YOVANI AT 1656/HM { READ BACK BY RA YOVANI 165 Performed By: #### 2 87673 #### [facility],[address] [place] [address] 10019 Protein [Mass/Vol] 6.8 g/dL Normal 6.4 - 8.2 [facility] Comment on above: Performed By: #### 2 40368 #### [facility],[address] [place] [address] 24197 Sodium [Moles/Vol] 133 mmol/L Low 136 - 145 [facility] Comment on above: Performed By: #### 2 68014 #### [facility],[address] [place] [address] 14239 Urea nitrogen [Mass/Vol] 49 mg/dL High 7 - 18 [facility] Comment on above: Performed By: #### 2 65978 #### [facility],[address] [place] [address] 73924 CORONAVIRUS (SARS) ANTIGEN T ESTon 12-21-2022 EXTERNAL QC DONE? YES Normal [facility] Comment on above: Performed By: #### 2 31438 #### [facility],[address] [place] [address] 73223 INTERNAL CONTROL PASS Normal [facility] Comment on above: Performed By: #### 2 42272 #### [facility],[address] [place] [address] 91606 SARS ANTIGEN Negative Normal NORMAL: NEGATIVE [facility] Comment on above: Performed By: #### 2 93257 #### [facility],[address] [place] [address] 78105 SEND TO ? YES Normal [facility] Comment on above: Result Comment: SARS -CoV-2 THIS TEST IS BEING USED UNDER THE FDA EUA PROCEDURE. THIS ASSAY HAS BEEN VALIDATED AT [facility] FOR USE WITH NASAL AND NASOPHARYNGEAL SWAB SPECIMENS. INTERPRETIVE DATA TEST RESULTS SHOULD ALWAYS BE CONSIDERED IN THE CONTEXT OF CLINICAL OBSERVATIONS AND EPIDEMIOLOGICAL DATA IN MAKING FINAL DIAGNOSIS AND PATIENT MANAGEMENT DECISIONS. PATIENT MANAGEMENT SHOULD FOLLOW CURRENT CDC GUIDELINES. THE KASHMIR SARS ANTIGEN MALACHI DOES NOT DIFFERENTIATE BETWEEN SARS-CoV & SARS-CoV-2. A POSITIVE TEST RESULT INDICATES THE PRESENCE OF SARS-CoV-2 NUCLEOCAPSID PROTEIN ANTIGEN, AND THE PATIENT IS INFECTED WITH THE VIRUS AND PRESUMED TO BE CONTAGIOUS. A NEGATIVE TEST RESULT FOR THIS TEST MEANS THAT SARS-CoV-2 NUCLEOCAPSID PROTEIN ANTIGEN WAS NOT PRESENT IN THE SPECIMEN ABOVE THE LIMIT OF DETECTION. HOWEVER, A NEGATIVE RESULT DOES NOT RULE OUT COVID-19 AND SHOULD NOT BE USED THE SOLE BASIS FOR TREATMENT OR PATIENT MANAGEMENT DECISIONS. A NEGATIVE RESULT DOES NOT EXCLUDE THE POSSIBILITY OF COVID-19. NEGATIVE RESULTS, FROM PATIENTS WITH SYMPTOM ONSET BEYOND FIVE DAYS, SHOULD BE TREATED PRESUMPTIVE AND CONFIRMATION WITH A MOLECULAR ASSAY, IF NECESSARY, FOR PATIENT MANAGEMENT, MAY BE PERFORMED. WHEN DIAGNOSTIC TESTING IS NEGATIVE, THE POSSIBLILTY OF A FALSE NEGATIVE RESULT SHOULD BE CONSIDERED IN THE CONTEXT OF A PATIENT'S RECENT EXPOSURES AND THE PRESENCE OF CLINICAL SIGNS AND SYMPTOMS CONSISTENT WITH COVID-19. THE POSSIBILITY OF A FALSE NEGATIVE RESULT SHOULD ESPECIALLY BE CONSIDERED IF THE PATIENT'S RECENT EXPOSURES OR CLINICAL PRESENTATION INDICATE THAT COVID-19 IS LIKELY, AND DIAGNOSTIC TESTS FOR OTHER CAUSES OF ILLNESS (e.g., OTHER RESPIRATORY ILLNESS) ARE NEGATIVE. IF COVID-19 IS STILL SUSPECTED BASED ON EXPOSURE HISTORY TOGETHER WITH OTHER CLINICAL FINDINGS, RE-TESTING SHOULD BE CONSIDERED BY HEALTHCARE PROVIDERS IN CONSULTATION WITH PUBLIC HEALTH AUTHORITIES. Performed By: #### 2 [id number] #### [facility],[address] [place] [address] ABDOMEN/PELVIS WO 12-21 CT ABDOMEN/PELVIS WO [address] [address] Patient: CHAD PANTOJA Phone#: : 1965 Age: 57 Gender: F Pt. Type: ER Account: [id number] Location: [facility] Ordering: CY VILLANUEVA Exam Date: 12/21/2022/17:48 Family Phys: ISAIAS DANIEL Charge Code: 014635 Physician: Bamberg Order #: [id number] Dose#: [id number] PROCEDURE: CT ABDOMEN/PELVIS WITHOUT CONTRAST COMPARISON: [facility], CT, ABDOMEN/PELVIS W CON, 12/17/2019, 21:29. INDICATIONS: Abdominal pain. TECHNIQUE: CT images were created without intravenous contrast. All CT scans at this facility use dose modulation, iterative reconstruction, and/or weight based dosing when appropriate to reduce radiation dose to as low as reasonably achievable. IV CONTRAST: No IV contrast used,0ml TOTAL DOSE: 9.10 CTDIvol(mGy) FINDINGS: Evaluation of the solid organs and soft tissues is limited in the absence of intravenous contrast. LIVER: Unremarkable in contour. Liver is hypodense relative to the spleen consistent with fatty infiltration of the liver BILIARY: Gallbladder is absent, surgical clips are in the gallbladder fossa PANCREAS: Normal. No lesion, fluid collection, ductal dilatation, or atrophy. SPLEEN: Unremarkable in contour. There is a splenule adjacent to the anterior margin of the spleen. KIDNEYS: Unremarkable in contour ADRENALS: Normal. No mass or enlargement. AORTA/VASCULAR: No aortic aneurysm. There are atherosclerotic calcifications of the aorta and branch vessels. RETROPERITONEUM: Normal. No mass or adenopathy. BOWEL/MESENTERY: Mild fluid-filled loops of small bowel and mild small bowel wall thickening. No bowel obstruction or dilatation. No significant stool burden. The appendix is not visualized. ABDOMINAL WALL: Small fat containing umbilical hernia URINARY BLADDER: Urinary bladder is decompressed. PELVIC NODES: Normal. No adenopathy. PELVIC ORGANS: Uterus is present. No adnexal mass. Tubal ligation clips present in both adnexa. BONES: Degenerative changes of the lower lumbar spine. Disc height loss at L5-S1. Continued Report - Page 2 of 2 Patient: CHAD PANTOJA Phone#: : 1965 Age: 57 Gender: F Pt. Type: ER Account: [id number] Location: [facility] Ordering: CY VILLANUEVA Exam Date: 12/21/2022/17:48 Family Phys: ISAIAS DANIEL Charge Code: 377533 Physician: Bamberg Order #: [id number] Dose#: [id number] LUNG BASES: Stable right lower lobe pulmonary nodule measuring 0.3 cm. Blood pool is hypodense relative to myocardium, this can be seen with anemia. OTHER: Negative. CONCLUSION: 1. No nephrolithiasis or hydronephrosis. 2. Fluid-filled loops of bowel in small bowel wall thickening, may represent enteritis. 3. Fatty infiltration of the liver Dictated by: Kera Hawkins MD on 12/22/2022 at 16:15 Approved by: Kera Hawkins MD on 12/22/2022 at 16:33 Normal [facility] CULTURE BLOOD [PRAVIN]on Microscopic examination of blood, culture CULTURE BLOOD [PRAVIN] [facility] AND [facility] FOR SCANNED REPORT 12/28/22.1027.DNP.CO MPLETE Normal [facility] Comment on above: Performed By: #### 2 14014 #### [facility],[address] [place] [address] Microscopic examination of blood, culture CULTURE BLOOD [PRAVIN] _BLOOD CULTURE_ GO TO [facility] REPORTS AND ATTACHMENTS FOR SCANNED REPORT 12/28/22.1028.DNP.CO MPLETE [facility] Comment on above: Performed By: #### 2 32858 #### [facility],[address] [place], [place] [id number] INFLUENZA VIRUS RAPID A/Bon 12-21-2022 INFLUENZA VIRUS RAPID A/B INFLUENZA A NEGATIVE INFLUENZA B NEGATIVE INTERNAL NEG QC PASS INTERNAL POS QC PASS EXTERNAL QC DONE? YES SEND TO IC? NO A NEGATIVE TEST RESULT DOES NOT EXCLUDE INFECTION WITH INFLUENZA A OR B. THEREFORE, THE RESULTS OBTAINED FROM THIS FLU TEST SHOULD BE USED IN CONJUCTION WITH CLINICAL FINDINGS TO MAKE AN ACCURATE DIAGNOSIS. A POSITIVE RESULT DOES NOT RULE OUT CO-INFECTIONS WITH OTHER PATHOGENS OR IDENTIFY ANY SPECIFIC INFLUENZA A VIRUS SUBTYPE.CO-INFECTION WITH INFLUENZA A AND B IS RARE. IT IS RECOMMENDED THAT DUAL POSITIVE RESULTS BE CONFIRMED BY VIRAL CULTURE OR AN FDA-CLEARED INFLUENZA A AND B MOLECULAR ASSAY. INDIVIDUALS WHO HAVE RECEIVED NASALLY ADMINISTERED INFLUENZA A VACCINE MAY TEST POSITIVE IN COMMERCIALLY AVAILABLE INFLUENZA RAPID DIAGNOSTIC TESTS FOR UP TO THREE DAYS. RESULT CRITICAL? NO Normal [facility] Comment on above: Performed By: #### 2 65098 #### [place] [address] LACTATEon 12-21-2022 Lactate [Moles/Vol] 6.4 mmol/L Critically high 0.4 - 2.0 [facility] Comment on above: Result Comment: { CA LLED TO YOVANI AT 1902/HM { READ BACK BY RA YOVANI 1901 LACTATE 3 HR NOTIFIED TO: _KC 12/21/22.HEM. . . LACTATE 3 HR NOTIFIED BY: _HM 12/21/22.HEM. . . Performed By: #### 2 05732 #### [facility],[address] [place] [address] 56753 Lactate [Moles/Vol] 7.0 mmol/L Critically high 0.4 - 2.0 [facility] Comment on above: Result Comment: { CA LLED TO YOVANI AT 1656/HM { READ BACK BY RA YOVANI 1655 LACTATE 3 HR NOTIFIED TO: _MG 12/21/22.HEM. . . LACTATE 3 HR NOTIFIED BY: _HM 12/21/22.1654.HEM. . . Performed By: #### 2 10157 #### [place] [id number] STOOL CULTURE [PRAVIN]on Stool culture STOOL CULTURE [PRAVIN] 12/26/22.0920.DNP.CO MPLETE Normal [facility] Comment on above: Performed By: #### 2 14131 #### [place] [address] TROPONIN I, HIGH SENSITIVITY on 12-21-2022 HS TROPONIN 245.9 pg/mL Critically high 0.0 - 51.4 [facility] Comment on above: Result Comment: { CA LLED TO DOMINICK AT 1909/ { READ BACK BY RA DOMINICK 1908 Performed By: #### 2 19842 #### [place] [address] HS TROPONIN 198.4 pg/mL Critically high 0.0 - 51.4 [facility] Comment on above: Result Comment: { CA LLED TO YOVANI AT 165 BY { READ BACK BY RA YOVANI 1651 Performed By: #### 2 17032 #### [place] [id number] URINE CULTURE [CCL]on 2022 Bacteria identified Cx Nom (U) URCUL See Results Below See Below CULTURE, URINE ESCHERICHIA COLI >=100,000 CFU/ml Escherichia coli CLSI breakpoints for therapy of uncomplicated UTIs due to E. coli, K. pneumoniae ORGANISM: ESCHERICHIA COLI ANTIBIOTIC CHACE DILUTN CHACE INTERP Ampicillin >=32 Resistant Cefazolin <=4 Susceptible Ceftriaxone <=1 Susceptible Cefepime <=1 Susceptible Ertapenem <=0.5 Susceptible Meropenem <=0.25 Susceptible Ampicillin/Sulbact 4 Susceptible Piperacillin/Tazobac <=4 Susceptible Gentamicin <=1 Susceptible Tobramycin <=1 Susceptible Trimeth sulfameth <=20 Susceptible Ciprofloxacin <=0.25 Susceptible Nitrofurantoin <=16 Susceptible This test was developed and its performance characteristics determined by the [facility] [place] ([facility] It has not been cleared or approved by the FDA. -[facility] is regulated under CLIA as qualified to perform high-complexity testing. This test is used for clinical purposes. It should not be regarded as investigational or for research. SOURCE: URINE [facility] [address] [place] [address] Naren Quintanilla III, M.D. [id number] Normal [facility] Comment on above: Performed By: #### 2 63288 #### [facility],[address] [place] [address] 28570 Basophil percentageOrdered B y: Tamanna Wisdom on 07-24-2022 Chloride [Moles/Vol] 107 mmol/L 98-107 [facility] Glucose [Mass/Vol] 100 mg/dL 74-106 [facility] Comment on above: Fasting Glucose resu lt from 100 to 125 mg/dL suggests IMPAIRED HOMEOSTASIS per A.D.A. criteria. Potassium [Moles/Vol] 4.5 mmol/L 3.5-5.1 [facility] Sodium [Moles/Vol] 140 mmol/L 136-145 [facility] Laboratory - Chemistry and C hemistry - challengeOrdered By: Tamanna Wisdom on 07-24-2022 CO2 [Moles/Vol] 27.0 mmol/L 21.0-32.0 [facility] Urea nitrogen/Creatinine [Mass ratio] 12.9 mg/mg 10-20 [facility] No Panel InformationOrdered By: Tamanna Wisdom on 07-24-2022 Estimated GFR (MDRD) Amer 87 mL/min >60 [facility] Comment on above: GFR Calc Estimated GFR (MDRD) Non-Af Amer 72 mL/min >60 [facility] Comment on above: Non- GFR Calc Serum or plasma calcium joselyn urement (mass/volume)Ordered By: Tamanna Wisdom on 07-24-2022 Calcium [Mass/Vol] 9.2 mg/dL 8.5-10.1 [facility] Serum or plasma creatinine m easurement (mass/volume)Ordered By: Tamanna Wisdom on 07-24-2022 Creatinine [Mass/Vol] 0.86 mg/dL 0.55-1.02 [facility] Comment on above: The validity of the calculated GFR & GFRAA in patients over 70 years has not been determined. Clinical correlation is essential. Serum or plasma urea nitroge n measurement (mass/volume)Ordered By: Tamanna Wisdom on 07-24-2022 Urea nitrogen [Mass/Vol] 11 mg/dL 7-18 [facility] Thin prep Papanicolaou smear with manual screeningOrdered By: Tamanna Wisdom on 07-24-2022 Thin prep Papanicolaou smear with manual screening 6 5-15 [facility] Laboratory - Chemistry and C hemistry - challengeOrdered By: Dr. Gonzáles on 07-02-2022 Free T4 [Mass/Vol] 1.88 ng/dL 0.76-1.46 [facility] No Panel InformationOrdered By: Dr. Gonzáles on 07-02-2022 Thyroid Stimulating Hormone (TSH) 0.02 uIU/mL 0.358-3.74 [facility] Basophil percentageOrdered B y: Dr. Gonzáles on 05-02-2022 Chloride [Moles/Vol] 107 mmol/L 98-107 [facility] Glucose [Mass/Vol] 113 mg/dL 74-106 [facility] Comment on above: Fasting Glucose resu lt from 100 to 125 mg/dL suggests IMPAIRED HOMEOSTASIS per A.D.A. criteria. Potassium [Moles/Vol] 3.3 mmol/L 3.5-5.1 [facility] Sodium [Moles/Vol] 141 mmol/L 136-145 [facility] Laboratory - Chemistry and C hemistry - challengeOrdered By: Dr. Gonzáles on 05-02-2022 CO2 [Moles/Vol] 24.0 mmol/L 21.0-32.0 [facility] Urea nitrogen/Creatinine [Mass ratio] 17.2 mg/mg 10-20 [facility] No Panel InformationOrdered By: Dr. Gonzáles on 05-02-2022 Estimated GFR (MDRD) Amer 74 mL/min >60 [facility] Comment on above: GFR Calc Estimated GFR (MDRD) Non-Af Amer 61 mL/min >60 [facility] Comment on above: Non- GFR Calc Serum or plasma calcium joselyn urement (mass/volume)Ordered By: Dr. Gonzáles on 05-02-2022 Calcium [Mass/Vol] 8.9 mg/dL 8.5-10.1 [facility] Serum or plasma creatinine m easurement (mass/volume)Ordered By: Dr. Gonzáles on 05-02-2022 Creatinine [Mass/Vol] 0.99 mg/dL 0.55-1.02 [facility] Comment on above: The validity of the calculated GFR & GFRAA in patients over 70 years has not been determined. Clinical correlation is essential. Serum or plasma urea nitroge n measurement (mass/volume)Ordered By: Dr. Gonzáles on 05-02-2022 Urea nitrogen [Mass/Vol] 17 mg/dL 7-18 [facility] Thin prep Papanicolaou smear with manual screeningOrdered By: Dr. Gonzáles on 05-02-2022 Thin prep Papanicolaou smear with manual screening 10 5-15 [facility] Basophil percentageOrdered B y: Dr. Gonzáles on 04-24-2022 Chloride [Moles/Vol] 106 mmol/L 98-107 [facility] Glucose [Mass/Vol] 77 mg/dL 74-106 [facility] Potassium [Moles/Vol] 3.9 mmol/L 3.5-5.1 [facility] Sodium [Moles/Vol] 140 mmol/L 136-145 [facility] Laboratory - Chemistry and C hemistry - challengeOrdered By: Dr. Gonzáles on 04-24-2022 CO2 [Moles/Vol] 29.0 mmol/L 21.0-32.0 [facility] Free T4 [Mass/Vol] 1.02 ng/dL 0.76-1.46 [facility] Urea nitrogen/Creatinine [Mass ratio] 23.1 mg/mg 10-20 [facility] No Panel InformationOrdered By: Dr. Gonzáles on 04-24-2022 Estimated GFR (MDRD) Amer 91 mL/min >60 [facility] Comment on above: GFR Calc Estimated GFR (MDRD) Non-Af Amer 75 mL/min >60 [facility] Comment on above: Non- GFR Calc Thyroid Stimulating Hormone (TSH) 7.51 uIU/mL 0.358-3.74 [facility] Serum or plasma calcium joselyn urement (mass/volume)Ordered By: Dr. Gonzáles on 04-24-2022 Calcium [Mass/Vol] 9.3 mg/dL 8.5-10.1 [facility] Serum or plasma creatinine m easurement (mass/volume)Ordered By: Dr. Gonzáles on 04-24-2022 Creatinine [Mass/Vol] 0.82 mg/dL 0.55-1.02 [facility] Comment on above: The validity of the calculated GFR & GFRAA in patients over 70 years has not been determined. Clinical correlation is essential. Serum or plasma urea nitroge n measurement (mass/volume)Ordered By: Dr. Gonzáles on 04-24-2022 Urea nitrogen [Mass/Vol] 19 mg/dL 7-18 [facility] Thin prep Papanicolaou smear with manual screeningOrdered By: Dr. Gonzáles on 04-24-2022 Thin prep Papanicolaou smear with manual screening 5 5-15 [facility] Laboratory - Chemistry and C hemistry - challengeOrdered By: Dr. Gonzáles on 03-06-2022 Free T4 [Mass/Vol] 1.63 ng/dL 0.76-1.46 [facility] No Panel InformationOrdered By: Dr. Gonzáles on 03-06-2022 Free Triiodothyronine (T3) pg/dL 2.6 pg/mL 2.18-3.98 [facility] Thyroid Stimulating Hormone (TSH) 6.61 uIU/mL 0.358-3.74 [facility] Basophil percentageOrdered B y: Dr. Gonzáles on 01-30-2022 Bilirubin [Mass/Vol] 0.40 mg/dL 0.20-1.00 [facility] Comment on above: For patients on eltr ombopag therapy, use of Dimension [place] TBIL is not recommended. Chloride [Moles/Vol] 103 mmol/L 98-107 [facility] Cholesterol [Mass/Vol] 388 mg/dL <200 [facility] Comment on above: <200 mg/dL Desirable 200-240 mg/dL Borderline >240 mg/dL High Risk Glucose [Mass/Vol] 85 mg/dL 74-106 [facility] Potassium [Moles/Vol] 4.0 mmol/L 3.5-5.1 [facility] Protein [Mass/Vol] 7.0 g/dL 6.4-8.2 [facility] Sodium [Moles/Vol] 138 mmol/L 136-145 [facility] Triglyceride [Mass/Vol] 265 mg/dL <199 [facility] Comment on above: The drugs N-Acetylcy steine and Metamizole may falsely depress this assay.Serum Triglycerides Reference Interval Normal <150 mg/dL Borderline high 150 - 199 mg/dL High 200 - 499 mg/dL Very High > or = 500 mg/dL Laboratory - Chemistry and C hemistry - challengeOrdered By: Dr. Gonzáles on 01-30-2022 ALP [Catalytic activity/Vol] 66 U/L 45-117 [facility] ALT [Catalytic activity/Vol] 27 U/L 13-56 [facility] CO2 [Moles/Vol] 25.0 mmol/L 21.0-32.0 [facility] Free T4 [Mass/Vol] 0.48 ng/dL 0.76-1.46 [facility] [facility] Gl[facility] (S) [Mass/Vol] 3.3 g/dL 2.2-4.2 [facility] Urea nitrogen/Creatinine [Mass ratio] 12.6 mg/mg 10-20 [facility] No Panel InformationOrdered By: Dr. Gonzáles on 01-30-2022 Estimated GFR (MDRD) Amer 65 mL/min >60 [facility] Comment on above: GFR Calc Estimated GFR (MDRD) Non-Af Amer 54 mL/min >60 [facility] Comment on above: Non- GFR Calc Thyroid Stimulating Hormone (TSH) 340.00 uIU/mL 0.358-3.74 [facility] Vitamin D 25-Hydroxy 15.2 ng/mL [facility] Comment on above: Vitamin D 25(OH) Sta tus Range Deficiency <20 ng/mL (50nmol/L) Insufficiency 20 - 30 ng/mL (50 - 75 nmol/L) Sufficiency 30 - 100 ng/mL (75 - 250 nmol/L) Toxicity >100 ng/mL (>250 nmol/L) Serum or plasma albumin joselyn urement (mass/volume)Ordered By: Dr. Gonzáles on 01-30-2022 Albumin [Mass/Vol] 3.7 g/dL 3.2-5.0 [facility] Serum or plasma albumin/glob ulin mass ratioOrdered By: Dr. Gonzáles on 01-30-2022 Albumin/Globulin [Mass ratio] 1.1 {ratio} 0.9-2.4 [facility] Serum or plasma calcium joselyn urement (mass/volume)Ordered By: Dr. Gonzáles on 01-30-2022 Calcium [Mass/Vol] 8.6 mg/dL 8.5-10.1 [facility] Serum or plasma cholesterol in HDL measurement (mass/volume)Ordered By: Dr. Gonzáles on 01-30-2022 Cholesterol in HDL [Mass/Vol] 70 mg/dL >40 [facility] Comment on above: The drugs N-Acetylcy steine and Metamizole may falsely depress this assay. Reference Range HDL <40 mg/dL Low HDL Cholesterol HDL >or= 60 mg/dL High HDL Cholesterol Serum or plasma cholesterol in VLDL measurement (mass/volume)Ordered By: Dr. Gonzáles on 01-30-2022 Cholesterol in VLDL [Mass/Vol] 53 mg/dL 5-40 [facility] Serum or plasma creatinine m easurement (mass/volume)Ordered By: Dr. Gonzáles on 01-30-2022 Creatinine [Mass/Vol] 1.11 mg/dL 0.55-1.02 [facility] Comment on above: The validity of the calculated GFR & GFRAA in patients over 70 years has not been determined. Clinical correlation is essential. Serum or plasma low density lipoprotein (LDL) cholesterol measurement (mass/volume)Ordered By: Dr. Gonzáles on 01-30-2022 Cholesterol in LDL [Mass/Vol] 265 mg/dL 0-130 [facility] Serum or plasma urea nitroge n measurement (mass/volume)Ordered By: Dr. Gonzáles on 01-30-2022 Urea nitrogen [Mass/Vol] 14 mg/dL 7-18 [facility] Thin prep Papanicolaou smear with manual screeningOrdered By: Dr. Gonzáles on 01-30-2022 Thin prep Papanicolaou smear with manual screening 33 U/L 15-37 [facility] Thin prep Papanicolaou smear with manual screening 10 5-15 [facility] Office Visiton 11-08-2016 Documentation of current medications (procedure) Done Invalid Interpretation Code [facility] Work Phone: Office Visiton 10-18-2016 Protein mass conc Done [facility] Work Phone: Tobacco smoking status NHIS Never Invalid Interpretation Code [facility] Work Phone: Tobacco smoking status NHIS Never smoker [facility] Work Phone: Tobacco use [facility] Never smoker Invalid Interpretation Code [facility] Work Phone: Vital Signs Date Time Vital Sign Value Performing Clinician Facility 12-21-2022 20:57-0400 SaO2% (BldA) [Mass fraction] 96 % [facility] Comment on above: Performed By: #### [id number] #### [facility],[address] [place] [address] 10-18-2016 10:29-0400 BMI (Body Mass Index) 45.51 kg/m2 [facility] Work Phone: 10-18-2016 10:29-0400 Height 142.24 cm [facility] Work Phone: 10-18-2016 10:29-0400 Weight 92.08 kg [facility] Work Phone: Encounters Encounter Date Encounter Type Care Provider Facility Start: 09-14-2024 End: 09-14-[address] Cody Gonzáles MD Work Phone: -[facility] Start: 09-14-2024 End: 09-14-[address] Cody Gonzáles MD -[facility] Start: 09-14-2024 End: 09-14-2024 ambulatory Cody Gonzáles Facility:[facility] Start: 08-25-2024 Non-patient / Non-visit Dr. Herlinda Garcia MD -[facility] Work Phone: Start: 07-29-2024 End: 07-29-[address] Cody Gonzáles MD Work Phone: [facility] Work Phone: Start: 07-29-2024 End: 07-29-[address] Cody Gonzáles MD -[facility] Start: 07-29-2024 End: 07-29-2024 ambulatory Cody Gonzáles Facility:[facility] Start: 06-11-2024 End: 06-11-[address] Cody Gonzáles MD Work Phone: [facility] Work Phone: Start: 06-11-2024 End: 06-11-[address] [facility] Start: 06-11-2024 End: 06-11-2024 ambulatory Cody Gonzáles Facility:[facility] Start: 12-25-2023 ambulatory Cody Andersoni lity:[facility] Start: 12-25-2023 End: 12-25-2023 ambulatory Cody Gonzáles Facility:[facility] Start: 10-14-2023 End: 10-14-2023 ambulatory Cody Gonzáles Facility:[facility] Start: 03-16-2023 End: 03-18-2023 ambulatory [facility] Start: 12-27-2022 End: 12-27-2022 ambulatory [facility] Work Phone: Start: 12-27-2022 End: 12-27-2022 Patient encounter procedure [facility] Start: 12-22-2022 End: 12-24-2022 Evaluation and management of inpatient DORY TORRES MD Facility:A Start: 12-21-2022 End: 12-22-2022 Emergency department patient visit CY VILLANUEVA [facility] Start: 07-24-2022 End: 07-24-2022 ambulatory [facility] Work Phone: Start: 07-24-2022 End: 07-24-2022 Patient encounter procedure [facility] Start: 07-02-2022 End: 07-02-2022 ambulatory [facility] Work Phone: Start: 07-02-2022 End: 07-02-2022 Patient encounter procedure [facility] Start: 05-02-2022 End: 05-02-2022 ambulatory [facility] Work Phone: Start: 05-02-2022 End: 05-02-2022 Patient encounter procedure [facility] Start: 04-24-2022 End: 04-24-2022 ambulatory [facility] Work Phone: Start: 04-24-2022 End: 04-24-2022 Patient encounter procedure [facility] Start: 04-12-2022 End: 04-12-2022 ambulatory [facility] Work Phone: Start: 04-12-2022 End: 04-12-2022 Patient encounter procedure [facility] Start: 03-06-2022 End: 03-06-2022 ambulatory [facility] Work Phone: Start: 03-06-2022 End: 03-06-2022 Patient encounter procedure [facility] Start: 01-30-2022 End: 01-30-2022 ambulatory [facility] Work Phone: Start: 01-30-2022 End: 01-30-2022 Patient encounter procedure [facility] Start: 12-21-2021 End: 12-21-2021 ambulatory [facility] Work Phone: Start: 12-21-2021 End: 12-21-[address] [facility] Start: 01-28-2020 End: 01-28-2020 Patient encounter procedure Keanu Diana Work Phone: [facility] Start: 01-28-2020 Results Only Keanu Mendoza) Debra hummel Work Phone: Gastroenterology Procedures Date Procedure Procedure Detail Performing Clinician Start: 06-11-2024 Plain X-ray of tibia and fibula Dr. Cody Gonzáles MD Work Phone: Start: 03-16-2023 Urinalysis ISAIAS Serrato Comment on above: Result Comment: URIN ALYSIS Performed By: #### [id number] #### [facility],[address] [place] [address] Start: 04-12-2022 Radiologic examinati on of knee Start: 12-21-2021 Complete x-ray serie s of lumbar spine with bending views Start: 01-28-2020 PT ED PATIENT INFORMATION Keanu Diana Work Phone: Start: 11-08-2016 End: 11-19-2016 Drain/inject, joint/bursa Zachary Gr Work Phone: Plan of Treatment Date Care Activity Detail Author Start: 10-18-2016 End: 10-18-2016 Appointment Appointment [facility] Work Phone: Start: 10-18-2016 End: 10-18-2016 X-ray exam, knee, 4 or more X-Ray, Knee [facility] Work Phone: PT ED PATIENT INFORMATION PT ED PATIENT INFORMATION Other 01/28/2020 [facility] Immunizations Immunization Date Immunization Notes Care Provider Christiano gonzales 12-26-2012 Influenza virus vaccine [facility] Payers Date Payer Category Payer Self-pay [id number] 2021 Unknown [id number] 2015 Medicaid [employer] [facility] [facility] [id number] 2015-Present Medicaid [id number] 1965 Unknown [id number] 1965 Unknown [id number] 1965 Unknown [id number] Unknown [facility] [id number] Unknown [id number] Unknown [id number] Unknown [id number] Unknown [id number] Unknown [id number] Unknown [id number] Unknown [id number] Social History Date Type Detail Facility Tobacco smoking status NHIS Unknown if ever smoked [facility] Sex Assigned At Not on file [facility] Start: 07-20-2020 End: 07-20-2020 Tobacco smoking status NHIS Unknown if ever smoked [facility] Start: 03-04-2013 None [facility] Start: 03-04-2013 Spouse/ Signif icant Other [facility] Start: 03-04-2013 Non-smoker [facility] Start: 1965 Sex Assigned At Female [facility] Start: 07-20-2020 Tobacco smoking status NHIS Never smoked tobacco (finding) [facility] Start: 06-12-2024 Sex Female (finding) [facility] Clinical Notes 12-24-2022 to 06-11-2024 Note Date & Type Note Facility 06-11-2024 Radiology Diagnostic study note [facility] Imaging Services [address] [place] [address] Tibia & Fibula 2 Views MR#: [id number] Acct: [id number] Name: CHAD PANTOJA Rep #: [id number] : 1965 F 59 From: Mer Eagle MD PCP: Dr. Cody Gonzáles MD Status: REG CLI Study:Tibia & Fibula 2 Views Date of Exam: 06/11/24 Exam# [id number] Ordering Dr: Carroll Gonzáles MD PROCEDURE: TIBIA FIBULA 2 VIEWS 06/11/2024 REASON FOR EXAM: REMOTE FALL, MID FIBULA PAIN TECHNIQUE: 2 views of the left lower leg COMPARISON: None FINDINGS: Bones: The tibia and fibula appear intact. Joints: Proximal and distal joint spaces are maintained. Soft tissues: Soft tissue swelling. No gas or unexpected radiopaque foreign body. RAD/Tibia & Fibula 2 Views IMPRESSION: No fracture or dislocation. Reading [facility] CC: Dr. Cody Gonzáles MD ~ Braider Tender: Signed [facility] 06-28-2023 Note [facility] HISTORY & PHYSICAL/DISCHARGE SUMMARY NAME ACCOUNT SEX AGE ADMIT DISCHARGE PT MED. RECORD# NUMBER DATE DATE TYPE CHAD PANTOJA [id number] F [id number] 03/16/23 2 [id number] [place] DATE OF : 61 DICTATING PHYSICIAN: Prerna Larry NO DICTATION SHE SAID IT IS A DISCHARGE SUMMARY Dictated by annette Nicole for Prerna Larry M.D. 03/18/23 12:10 JOB #: [id number] Transcribed By: bronson 03/18/23 12:16 Electronically signed by: E-Sign: PRERNA LARRY MD 06/28/23 16:12 Update to H&P: [ ] No changes: I have examined the patient and reviewed the H&P and there are no changes. [ ] As previously dictated with the following changes: PHYSICIAN SIGNATURE: TIME: DATE: Page 1 of 1 SCARLETT CHAD Martin History Physical/Discharge Summary [facility] 06-28-2023 Note [facility] DISCHARGE SUMMARY NAME ACCOUNT SEX AGE ADMIT DISCHARGE PT MED. RECORD# NUMBER DATE DATE TYPE PANTOJACHAD [id number] F 58 03/16/23 2 [id number] [place] DATE OF : 1965 ATTENDING PHYSICIAN: Prerna Larry FINAL DIAGNOSIS: Acute pyelonephritis, improved. HOSPITAL COURSE: For a full history and physical, please see chart. Brief summary, see below. The patient is a 58-year-old female with a past medical history significant for hypothyroidism, hypertension, depression, and overactive bladder. She came to the emergency room after on Saturday she had a 102 fever at home, nausea and vomiting. Then, Saturday she started with intermittent vomiting. Her son called the squad as she had a history of sepsis in the past with acute kidney injury. About a week prior, she felt like she was getting a urinary tract infection with urgency and started drinking cranberry juice. She came through the emergency room. Urinalysis was positive. White blood cell count was 17,000. She had a critically low potassium at 2.6, and she was admitted for further management. CT showed the left side pyelonephritis. She was placed on IV Zosyn and improved significantly. Today, she denies any pain. No nausea or vomiting. She is tolerating p.o. intake well. Update was from nursing staff. VITAL SIGNS: Today's vital signs: Blood pressure is 139/81, heart rate 76, respiratory rate 16, temperature 98.1. GENERAL APPEARANCE: This is a well-nourished, well-developed 58-year-old female. HEENT: Unremarkable. NECK: Neck is supple. LUNGS: Normal respiratory effort. ABDOMEN: Positive bowel sounds, soft and nontender with some mild flank pain. She was on Lovenox for deep venous thrombosis prophylaxis, ciprofloxacin IV. Final cultures have not returned, but she is asymptomatically improved. She will be discharged home today. I did give her 10 days of ciprofloxacin, instructed her to take for 7 days, and then left her physician know she has 3 days worth at home. If she gets another infection, she is to contact them. I also suggested vitamin C on a routine basis. If she gets over 6 urinary tract infections a year, consider a preventative treatment. She does follow with a urologist for overactive bladder, which she will continue to follow and also with her primary care physician. She was discharged home in stable condition with above instructions. MEDICATIONS ON DISCHARGE: (1) Acetaminophen 650 mg three times daily p.r.n. (2) Ciprofloxacin 500 mg twice daily for 7 days. (3) Continue all other medications at home including famotidine 20 mg daily. (4) Glycopyrrolate 4 mg twice daily. (5) Losartan 100 mg daily. (6) Meloxicam 15 mg daily p.r.n. (7) Myrbetriq 100 mg daily. (8) Synthroid 175 mcg daily. DISCHARGE INSTRUCTIONS/PLAN: Regular diet. Increase activity as tolerated. No smoking or alcoholic beverages. Follow-up with Dr. Gonzáles on March 26 at 8:10 Page 1 of 2 CHAD PANTOJA Discharge Summary CHAD PANTOJA : 1965 a.m. Dictated by annette Nicole for Prerna Larry M.D. I evaluated the patient myself the accurate E&M above done by Michael Larry MD 03/18/23 12:14 JOB #: [id number] Transcribed By: am 03/18/23 12:18 Electronically signed by: E-Sign: PRERNA LARRY MD 06/28/23 16:12 Page 2 of 2 CHAD PANTOJA Discharge Summary [facility] 03-22-2023 Note . MICRO - Microbiology PROCEDURE: [...] Locations *1: This test was performed at: [facility], [address] [place] [address], [facility] , [facility] ([place]) 03-22-2023 Note . MICRO - Microbiology PROCEDURE: [...] Locations *1: This test was performed at: [address], [facility] , [facility] ([place]) 12-27-2022 Note . MICRO - Microbiology PROCEDURE: [...] Locations *1: This test was performed at: [address], [facility] , [facility] ([place]) 12-27-2022 Note . MICRO - Microbiology PROCEDURE: [...] Locations *1: This test was performed at: [address], [address] [place] [address] ([place]) 12-27-2022 Note . MICRO - Microbiology PROCEDURE: [...] Locations *1: This test was performed at: [address], [address] [place] [address] ([place]) 12-27-2022 Note . MICRO - Microbiology PROCEDURE: [...] Locations *1: This test was performed at: [address], [address] [place] [address] ([place]) 12-27-2022 Note . MICRO - Microbiology PROCEDURE: [...] Locations *1: This test was performed at: [address], [address] [place] [address] ([place]) 12-25-2022 Note . MICRO - Microbiology PROCEDURE: Shiga Toxins 1 and 2 [[id number]: [id number] ^1 *1] SOURCE: Stool BODY SITE: COLLECTED [...] Locations *1: This test was performed at: [address], [address] [place] [address] ([place]) 12-25-2022 Note . MICRO - Microbiology PROCEDURE: [...] Locations *1: This test was performed at: [address] ([facility] 12-25-2022 Note . MICRO - Microbiology PROCEDURE: [...] Locations *1: This test was performed at: [address], [address] [place] [address] ([place]) 12-24-2022 Note . MICRO - Microbiology PROCEDURE: Shiga Toxins 1 and 2 [[id number]: [id number] ^1 *1] SOURCE: Stool BODY SITE: COLLECTED [...] Locations *1: This test was performed at: [address], [address] [place] [address] ([facility] 12-24-2022 Note . MICRO - Microbiology PROCEDURE: Shiga Toxins 1 and 2 [[id number]: [id number] ^1 *1] SOURCE: Stool BODY SITE: COLLECTED [...] Locations *1: This test was performed at: [address], [address] [place] [address] ([place]) 12-24-2022 Note . MICRO - Microbiology PROCEDURE: [...] Locations *1: This test was performed at: [facility], [address] [place] [address], [facility] , [facility] ([place]) Evaluation note No assessment inform ation available [facility] Work Phone: Reason for referral (narrative) No reason for referral information available [facility] Work Phone: Chief Complaint and Reason for Visit Chief Complaint EORDER- low back delilah n Chief Complaint Unilateral primary o steoarthritis, right knee Chief Complaint Admit Date E-ORDER June 11, 2024 9:1 7am Family History No Family History Records Found Relationship Condition Age at Onset Recorded Date/T lee father Cardiac disease Unknown Disorder of thyroid Unknown Asthma Unknown Malignant neoplasm Unknown Advance Directives No Advanced Directives Records Found Advance Directive Response Recorded Date/ Time Advance Directives No March 04, 2013 9:47pm Living Will No January 05, 2 020 3:41pm Power of Precipitator Supervisor No January 06, 2020 3:41pm Advance Directive Response Recorded Date/ Time Advance Directives No March 04, 2013 8:47pm Living Will No January 05, 2 020 2:41pm Power of Precipitator Supervisor No January 06, 2020 2:41pm Advance Directive Response Recorded Date/ Time Advance Directives No March 04, 2013 9:47pm Summary Purpose Additional Source Comments Source Comments (unrecognize d section and content) In the event this informatio n is protected by the Federal Confidentiality of Alcohol and Drug Abuse Patient Records regulations: The Federal rules restrict any use of the information to criminally investigate or prosecute any alcohol or drug abuse patient.[facility] Goals (unrecognized section and content) Goals may be documented in a n alternate sectionGoals may be documented in an alternate sectionGoals may be documented in an alternate sectionGoals may be documented in an alternate sectionGoals may be documented in an alternate sectionGoals may be documented in an alternate sectionGoals may be documented in an alternate sectionGoals may be documented in an alternate sectionGoals may be documented in an alternate sectionGoals may be documented in an alternate sectionGoals may be documented in an alternate sectionGoals may be documented in an alternate section Care Teams (unrecognized sec tion and content) Team Status: Active Member Role Status Dates Dr. Amadou Gonzáles MD Family Provider Active Dr. Amadou Gonzáles MD Primary Care Provider Activ e Team Status: Inactive Member Role Status Dates Dr. Amadou Gonzáles MD Primary Care Provider, Attending Provider, Referring Provider Active Team Status: Inactive Member Role Status Dates Dr. Amadou Gonzáles MD Primary Care Provider, Atte nding Provider Active Team Status: Inactive Member Role Status Dates Dr. Amadou Gonzáles MD Primary Care Provider Activ e Tamanna Wisdom BOOTH CLEANER, BOOTH CLEANER-C Attending Provider Active Team Status: Active Member Role Status Dates Dr. Cody Gonzáles MD Family Provider Active Dr. Cody Gonzáles MD Primary Care Provider Acti ve Team Status: Inactive Member Role Status Dates Dr. Cody Gonzáles MD Primary Care Provider Acti ve Start: June 11, 2024 End: June 11, 2024 Dr. Cody Gonzáles MD Attending Provider Active Start: June 11, 2024 End: June 11, 2024 Dr. Cody Gonzáles MD Referring Provider Active Start: June 11, 2024 End: June 11, 2024 Team Status: Inactive Member Role Status Dates Dr. Cody Gonzáles MD Primary Care Provider Acti ve Start: July 29, 2024 End: July 29, 2024 Dr. Cody Gonzáles MD Attending Provider Active Start: July 29, 2024 End: July 29, 2024 Dr. Cody Gonzáles MD Referring Provider Active Start: July 29, 2024 End: July 29, 2024 Team Status: Active Member Role/Relationship Status Dates Dr. Cody Gonzáles MD Family Provider Active Dr. Cody Gonzáles MD Primary Care Provider Acti ve Team Status: Inactive Member Role/Relationship Status Dates Dr. Cody Gonzáles MD Primary Care Provider Acti ve Start: June 11, 2024 End: June 11, 2024 Dr. Cody Gonzáles MD Attending Provider Active Start: June 11, 2024 End: June 11, 2024 Dr. Cody Gonzáles MD Referring Provider Active Start: June 11, 2024 End: June 11, 2024 Team Status: Inactive Member Role/Relationship Status Dates Dr. Cody Gonzáles MD Primary Care Provider Acti ve Start: July 29, 2024 End: July 29, 2024 Dr. Cody Gonzáles MD Attending Provider Active Start: July 29, 2024 End: July 29, 2024 Dr. Cody Gonzáles MD Referring Provider Active Start: July 29, 2024 End: July 29, 2024 Team Status: Inactive Member Role/Relationship Status Dates Dr. Cody Gonzáles MD Primary Care Provider Acti ve Start: August 25, 2024 Dr. Herlinda Garcia MD Attending Provider Active Start: August 25, 2024 Team Status: Inactive Member Role/Relationship Status Dates Dr. Cody Gonzáles MD Primary Care Provider Acti ve Start: September 14, 2024 End: September 14, 2024 Dr. Cody Gonzáles MD Attending Provider Active Start: September 14, 2024 End: September 14, 2024 Dr. Cody Gonzáles MD Referring Provider Active Start: September 14, 2024 End: September 14, 2024 INFORMATION SOURCE (unrecogn ized section and content) DATE CREATED AUTHOR 03/22/2023 [place] DATE CREATED AUTHOR AUTHOR'S ORGANIZ ATION 03/24/2023 [facility] ([place]) DATE CREATED AUTHOR AUTHOR'S ORGANIZ ATION 06/30/2023 [facility] DATE CREATED AUTHOR AUTHOR'S ORGANIZ ATION 09/19/2024 [facility] FOR RECORDS PERTAINING TO PATIENTS WHO ARE [...] BE BASED ON THE PRIMARY CLINICAL RECORDS. [facility]. provides no warranty or guarantee of the accuracy or completeness of information in this document.
== END | disposition home or self-care (01) ==
LOC: LABSPEC 16:55
PROVIDERS: PCP Family Medicine; Referring Provider Family Medicine; Visit Provider Family Medicine
DX: N39.0 Urinary tract infection, site not specified (principal)
CPT/HCPCS: 81002; 87086

== ENCOUNTER → 2024-10-29 | Outpatient (CLI) | payer MEDICAID, SELFPAY ==
[2024-10-29 12:48] LABS: Hematocrit 36.7 % (37-47); Hemoglobin 12.7 g/dL (12.0-15.0); Immature Granulocytes Count 0.010 X10^3/uL (0.0-0.0); Mean Corp Hgb Conc 34.6 g/dL (32-36); Mean Corpuscular Volume 85.3 fL (81-99); Mean Platelet Vol. 9.5 fl (6.2-12.0); NRBC Flagged by Analyzer 0 % (0-5); Platelet Count 320 K/mm3 (150-450); RBC Distribution Width CV 13.8 % (11.6-14.6); RBC Distribution Width SD 42.8 fl (35.1-43.9); Red Blood Count 4.30 M/mm3 (4.2-5.4); White Blood Count 5.3 K/mm3 (4.4-11.0)
[2024-10-29 13:23] LABS: AST(SGOT) 18 U/L (<=31); Alanine Aminotransfer ALT/SGPT 17 U/L (<=34); Albumin, Serum 4.3 g/dL (3.4-4.8); Alkaline Phosphatase 83 U/L (35-104); Anion Gap 13 (5-15); BUN 11 mg/dL (4-19); BUN/Creat Ratio 15.7 RATIO (10-20); Calcium,Total 9.6 mg/dL (7.6-11.0); Carbon Dioxide 22.9 mmol/L (21.0-32.0); Chloride 103 mmol/L (98-108); Cholesterol 244 mg/dL (<=200); Globulin 3.0 g/dL (2.2-4.2); Glucose 90 mg/dL (70-99); Low Density Lipoprotein Calc. 151 mg/dL; Potassium 3.4 mmol/L (3.3-5.1); Triglycerides 202 mg/dL; Very Low Density Lipoprotein 40 mg/dL (5-40); cholesterol:hdl ratio screen 4.60
[2024-10-29 13:25] LABS: Vitamin D,25 Hydroxy 78.1 ng/mL (30-100)
[2024-10-30 15:08] LABS: ANTINUCLEAR ANTIBODIES DIRECT Negative (Negative)
== END | disposition home or self-care (01) ==
LOC: MFPLAB 10:15
PROVIDERS: PCP Family Medicine; Visit Provider Family Medicine
DX: E03.9 Hypothyroidism, unspecified (principal); M25.50 Pain in unspecified joint; I10 Essential (primary) hypertension
CPT/HCPCS: 36415; 80053; 80061; 82306; 84439; 84443; 85025; 85652; 86038; 86431